=== PATIENT | female | born 1965 | race Caucasian/White ===

== ENCOUNTER 2016-10-28 22:43 | Inpatient (IN) ==
--- NOTE | 2016-10-28 22:57 | Emergency Department Note ---
Disposition Clinical Impression: Accidental drug ingestion Disposition: Admitted As Inpatient Condition: Fair Time of Disposition: 00:39 General Adult HPI - General Chief complaint: ED Overdose Stated complaint: Overdose Time Seen by Provider: 10/28/16 22:51 Source: patient, other Limitations: no limitations Nursing Notes Reviewed: Yes Vital Signs Reviewed: Yes - History of Present Illness HPI Narrative: Female patient brought in by . She is initially not responsive to our stimuli. She is maintaining her airway and has a pulse. She appears to have seizure-like activity. 2 mg of Ativan was given to her. Patient has been advised that she has taken an unknown amount of unknown medication. They state the home health nurse placed medication and a new container and patient took it. This occurred prior to their arrival in the emergency department. She does have a history of cancer she is being treated for as well as seizures that she does not take medication for. Pain Scale: 0 - Related Data Home Medications Medication Instructions Recorded Confirmed Calcium Carbonate/Vitamin D3 1 tab PO BID 05/31/15 09/11/16 [Calcium 600 + D Tablet] Diltiazem HCl [Diltiazem 12Hr ER] 60 mg PO QAM 05/31/15 09/11/16 Isosorbide MONOnitrate (24 HR) 60 mg PO BID 05/31/15 09/11/16 [Imdur] Nitroglycerin [Nitrostat] 0.4 mg SL PRN PRN 05/31/15 09/11/16 Trazodone HCl [TraZODone] 300 mg PO HS 05/31/15 09/11/16 Venlafaxine XR (24 HR) [Effexor XR] 150 mg PO QAM 05/31/15 09/11/16 Eye Lubricant Combination No.1 1 drop OP TID 12/15/15 09/11/16 [Freshkote] Fluticasone/Salmeterol [Advair 1 each IH BID 12/15/15 09/11/16 500-50 Diskus] Lidocaine Patch [Lidoderm 5% patch] 1 each TP DAILY 12/15/15 09/11/16 Tiotropium [Spiriva] 18 mcg IH DAILY 12/15/15 09/11/16 ClonazePAM [Klonopin] 1 mg PO TID 04/01/16 09/11/16 Ondansetron HCl [Zofran] 4 - 8 mg PO Q6H PRN 05/03/16 09/11/16 Oxygen 2 l NS HS 05/03/16 09/11/16 Cetirizine HCl [Zyrtec] 10 mg PO DAILY 06/28/16 09/11/16 Previous Rx's Medication Instructions Recorded Multivit-Minerals/Folic Acid 200 mcg PO DAILY #30 tab.chew 09/25/15 [Adult Multi Gummies] Dicyclomine [Bentyl] 10 mg PO TID #90 capsule 02/08/16 Polyethylene Glycol 3350 [MiraLAX] 17 gm PO DAILY #30 powd.pack 02/08/16 Prochlorperazine Maleate 10 mg PO Q6HR PRN #60 tablet 04/17/16 [Compazine] Letrozole [Femara] 2.5 mg PO DAILY #30 tablet 05/20/16 Sucralfate [Carafate] 1 gm PO QIDAC #120 tablet 09/23/16 Docusate [Colace] 200 mg PO TID PRN #180 capsule 10/22/16 Allergies Allergy/AdvReac Type Severity Reaction Status Date / Time fluoxetine [From Prozac] Allergy Anaphylaxis Verified 10/28/16 23:13 Sulfa (Sulfonamide Allergy Rash Verified 10/28/16 23:13 Antibiotics) sumatriptan [From Imitrex] Allergy Rash Verified 10/28/16 23:13 Limitations: ROS unobtainable due to patients medical condition Past Medical History - Past Medical History Source: old records reviewed, obtained from family Medical history: Reports: cancer, COPD, coronary artery disease, CVA, GERD, hypertension, kidney stones, seizures, TIA, other Surgical history: Reports: appendectomy, hysterectomy, other Psychiatric history: Reports: anxiety, depression 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 She is maintaining her airway. Her trachea is midline. There is no JVD. Her lung sounds are clear bilaterally. Her heart tones are normal. She has strong radial pulses. Her pupils are equal and reactive to light bilaterally 4 mm. Her mucous membranes are moist. Patient had a bilateral mastectomy. She is obese. She does grimace from pain on palpation of her right upper quadrant and verbalizes that she has a fatty liver. Her bowel sounds are normal. I do not appreciate organomegaly. She does not have swelling in any of her extremities. She has strong pedal pulses. There is no pedal edema. I do not appreciate any rashes or bruising to her body. Her skin is not diaphoretic or warm. - General Limitations: no limitations General appearance: alert Course Course Narrative: Patient appears to have seizure-like activity initially. She is given 2 mg of Ativan. She does respond to painful stimuli. She states that she took too much of her medication. She states this was an accident. She denies any SI or HI this time. She subsequently has any other seizure-like activity event but does stop when told to stop. These appear to be pseudoseizures. We will get basic labs as well as urine tox. We will also do a chest x-ray and an EKG. I will contact poison control. - Reevaluation(s) Reevaluation #1: Patient responsive to painful stimuli still. Due to patient's unknown ingestion and recommendation on by poison control we will admit patient. Time: 00:05 - Consultations Consultation #1: Dr Huang admitted Pt in stable condition. Time: 00:29 Vital Signs Temperature 97.1 F L 10/28/16 22:47 Pulse Rate 71 10/28/16 22:47 Respiratory Rate 10 10/28/16 22:47 Blood Pressure 134/90 10/28/16 22:47 O2 Sat by Pulse Oximetry 97 10/28/16 22:47 Temperature 98.1 F 10/28/16 23:00 Pulse Rate 67 10/29/16 02:30 Respiratory Rate 18 10/29/16 02:30 Blood Pressure 113/78 10/29/16 02:30 O2 Sat by Pulse Oximetry 95 10/29/16 02:30 Oxygen Delivery Oxygen Delivery Room Air Medical Decision Making - Medical Records Medical records reviewed: Yes I reviewed the patient's medical records. - Lab Data Lab results reviewed: Yes I reviewed the patient's lab results. Result diagrams: 10/28/16 23:07 10/28/16 23:07 Lab Results 10/28/16 10/28/16 10/28/16 Range/Units 22:48 22:51 22:52 WBC (4.3-11.1) K/mcL RBC (3.82-4.97) M/mcL Hgb (11.5-15.4) g/dL Hct (35.3-44.9) % MCV (83.0-100.0) fL MCH (28.0-33.3) pg MCHC (31.6-35.5) g/dL RDW (11.5-14.5) % Plt Count (140-400) K/mcL MPV (9.4-12.4) fL Immature Gran % (0-4) % Seg Neutrophils % % Lymphocytes % % Monocytes % % Eosinophils % % Basophils % % Neutrophils # (1.6-8.9) K/mcL Lymphocytes # (0.6-4.6) K/mcL Monocytes # (0.0-1.3) K/mcL Eosinophils # (0.0-0.6) K/mcL Basophils # (0.0-0.2) K/mcL Sodium (136-145) mEq/L Potassium (3.5-4.5) mEq/L Chloride (98-109) mEq/L Carbon Dioxide (19-29) mEq/L BUN (7-20) mg/dL Creatinine (0.57-1.11) mg/dL Est GFR ( Amer) (> 60) Est GFR (Non-Af Amer) (> 60) BUN/Creatinine Ratio (6-26) Glucose (70-99) mg/dL POC Glucose 116 H (58-89) Calculated Osmolality (280-300) Calcium (8.6-10.8) mg/dL Total Bilirubin (0.2-1.2) mg/dL Direct Bilirubin (0.0-0.5) mg/dL Indirect Bilirubin (0.0-1.2) mg/dL AST (5-34) Units/L ALT (0-55) Units/L Alkaline Phosphatase (38-126) Units/L Serum Total Protein (6.0-8.3) g/dL Albumin (3.5-5.0) g/dL Globulin (2.4-3.5) g/dL Albumin/Globulin Ratio (1.1-2.2) Urine Color Yellow (Yellow) Urine Clarity Clear (Clear) Urine pH 7.0 (5.0-8.0) pH Units Ur Specific [place] 1.005 L (1.010-1.025) Urine Protein Negative (Neg-Trace) mg/dL Urine Glucose (UA) Normal (Normal) mg/dL Urine Ketones Negative (Negative) mg/dL Urine Blood Negative (Negative) Urine Nitrite Negative (Negative) Urine Bilirubin Negative (Negative) Urine Urobilinogen Normal (Normal) mg/dL Ur Leukocyte Esterase Negative (Negative) Urine Test Negative (Negative) Salicylates (15-30) mg/dL Urine Opiates Screen (Pebjqg=367) ng/mL Acetaminophen (10-30) mcg/mL Ur Barbiturates Screen (Ichnly=996) ng/mL Ur Phencyclidine Scrn (Cutoff=25) ng/mL Ur Amphetamines Screen (Weutly=5182) ng/mL U Benzodiazepines Scrn (Ckbnjn=349) ng/mL Urine Cocaine Screen (Cutoff= 300) ng/mL U Marijuana (THC) Screen (Cutoff = 50) ng/mL Ethyl Alcohol (0-10) mg/dL 10/28/16 10/28/16 10/28/16 Range/Units 22:52 23:07 23:07 WBC 8.2 (4.3-11.1) K/mcL RBC 4.29 (3.82-4.97) M/mcL Hgb 12.8 (11.5-15.4) g/dL Hct 38.9 (35.3-44.9) % MCV 90.7 (83.0-100.0) fL MCH 29.8 (28.0-33.3) pg MCHC 32.9 (31.6-35.5) g/dL RDW 13.8 (11.5-14.5) % Plt Count 201 (140-400) K/mcL MPV 9.7 (9.4-12.4) fL Immature Gran % 0.2 (0-4) % Seg Neutrophils % 51.1 % Lymphocytes % 41.2 % Monocytes % 5.7 % Eosinophils % 1.3 % Basophils % 0.5 % Neutrophils # 4.2 (1.6-8.9) K/mcL Lymphocytes # 3.4 (0.6-4.6) K/mcL Monocytes # 0.5 (0.0-1.3) K/mcL Eosinophils # 0.1 (0.0-0.6) K/mcL Basophils # 0.0 (0.0-0.2) K/mcL Sodium 139 (136-145) mEq/L Potassium 3.4 L (3.5-4.5) mEq/L Chloride 106 (98-109) mEq/L Carbon Dioxide 24 (19-29) mEq/L BUN 13 (7-20) mg/dL Creatinine 0.77 (0.57-1.11) mg/dL Est GFR ( Amer) > 60 (> 60) Est GFR (Non-Af Amer) > 60 (> 60) BUN/Creatinine Ratio 17 (6-26) Glucose 116 H (70-99) mg/dL POC Glucose (58-89) Calculated Osmolality 289 (280-300) Calcium 8.6 (8.6-10.8) mg/dL Total Bilirubin 0.3 (0.2-1.2) mg/dL Direct Bilirubin < 0.1 (0.0-0.5) mg/dL Indirect Bilirubin 0.2 (0.0-1.2) mg/dL AST 13 (5-34) Units/L ALT 20 (0-55) Units/L Alkaline Phosphatase 83 (38-126) Units/L Serum Total Protein 6.2 (6.0-8.3) g/dL Albumin 3.5 (3.5-5.0) g/dL Globulin 2.7 (2.4-3.5) g/dL Albumin/Globulin Ratio 1.3 (1.1-2.2) Urine Color (Yellow) Urine Clarity (Clear) Urine pH (5.0-8.0) pH Units Ur Specific [place] (1.010-1.025) Urine Protein (Neg-Trace) mg/dL Urine Glucose (UA) (Normal) mg/dL Urine Ketones (Negative) mg/dL Urine Blood (Negative) Urine Nitrite (Negative) Urine Bilirubin (Negative) Urine Urobilinogen (Normal) mg/dL Ur Leukocyte Esterase (Negative) Urine Test (Negative) Salicylates < 5.0 L (15-30) mg/dL Urine Opiates Screen Negative (Jyzjfi=774) ng/mL Acetaminophen 5.0 L (10-30) mcg/mL Ur Barbiturates Screen Negative (Ssgwqm=275) ng/mL Ur Phencyclidine Scrn Negative (Cutoff=25) ng/mL Ur Amphetamines Screen Negative (Ysadut=9360) ng/mL U Benzodiazepines Scrn Negative (Urnmyc=173) ng/mL Urine Cocaine Screen Negative (Cutoff= 300) ng/mL U Marijuana (THC) Screen Negative (Cutoff = 50) ng/mL Ethyl Alcohol < 10 (0-10) mg/dL - Radiology Data Radiology results reviewed: Yes I reviewed the patient's radiology results. No cardiopulmonary process. - EKG Data EKG #1 EKG attestation: Yes I reviewed and interpreted this EKG. EKG results narrative: Normal sinus rhythm at a rate of 74. SD interval is 163. QRS duration is 109. QTC is 437 QTC is 464. No signs of acute ischemia. Minor elongated QT. No significant changes from prior EKG dated 05/03/2016. Attestation Statement - Attestation Attestation: For this encounter, I have reviewed the resident, PSYCHOLOGY TECHNICIAN, or PA documentation, treatment plan, and medical decision making; and I have had face to face time with this patient. History source: Patient is unable to provide information for this note. Info was gathered from the patient, hospital staff, the patient's chart. History limitations: Patient condition Medications: As per nurses note 51-year-old female presents after accidental medication overdose. states the patient tried to take her nighttime medications but grabbed the wrong couple of medications. states the home health nurse took a mixture of her medications and placed them in a cup and they were not disposed of properly. Patient is unsure of the medications that were in the cup. drove the patient to the emergency department. He states she was ambulating to the car and out of it. Upon arrival to the emergency department patient is somnolent and reacts only to sternal rub. As the patient was transferred from the wheelchair to the bed she had what seemed to be a seizure with convulsions of her entire body. Upon further evaluation, the patient was not postictal after the event, she was not incontinent, she did not bite her tongue, she grabbed my hand pushing away after sternal rub. She has a history of nonepileptic seizures and is not taking antiepileptic medications. After continued observation the patient gradually became more awake and denied suicidal ideation. agrees with the story and states that taking the medications was an accident. ECG shows normal sinus rhythm with rate of 74, QRS of 109, QTC of 464. Patient vital signs are stable. She had multiple nonepileptic seizures during her stay in the emergency department but similar to the initial, there is no postictal period or other signs or symptoms that this was an epileptic seizure. Poison Control Center was contacted regarding the patient's symptoms and case. We went through the most recent medication list with them and they recommended admission to the hospital for continued evaluation. Patient has sleeping in the emergency Department however she awakes to voice and is able to hold conversation regarding what happened.
[2016-10-28 23:12] LABS: Basophils % 0.5 %; Eosinophils # 0.1 K/mcL (0.0-0.6); Eosinophils % 1.3 %; Hematocrit 38.9 % (35.3-44.9); Hemoglobin 12.8 g/dL (11.5-15.4); Immature Granulocytes % 0.2 % (0-4); Lymphocytes # 3.4 K/mcL (0.6-4.6); Lymphocytes % 41.2 %; Mean Corpuscular HGB Conc 32.9 g/dL (31.6-35.5); Mean Corpuscular Hemoglobin 29.8 pg (28.0-33.3); Mean Corpuscular Volume 90.7 fL (83.0-100.0); Mean Platelet Volume 9.7 fL (9.4-12.4); Monocytes # 0.5 K/mcL (0.0-1.3); Monocytes % 5.7 %; Neutrophils # 4.2 K/mcL (1.6-8.9); Platelet Count 201 K/mcL (140-400); Red Blood Count 4.29 M/mcL (3.82-4.97); Red Cell Distribution Width 13.8 % (11.5-14.5); Segmented Neutrophils % 51.1 %
[2016-10-28 23:25] LABS: Alanine Aminotransferase 20 Units/L (0-55); Albumin 3.5 g/dL (3.5-5.0); Albumin/Globulin Ratio 1.3 (1.1-2.2); Alkaline Phosphatase 83 Units/L (38-126); Aspartate Amino Transferase 13 Units/L (5-34); BUN/Creatinine Ratio 17 (6-26); Bilirubin,Indirect 0.2 mg/dL (0.0-1.2); Bilirubin,Total 0.3 mg/dL (0.2-1.2); Blood Urea Nitrogen 13 mg/dL (7-20); Calcium 8.6 mg/dL (8.6-10.8); Carbon Dioxide 24 mEq/L (19-29); Chloride 106 mEq/L (98-109); Globulin 2.7 g/dL (2.4-3.5); Glucose 116 mg/dL (70-99); Osmolality,Calculated 289 (280-300); Potassium 3.4 mEq/L (3.5-4.5); Sodium 139 mEq/L (136-145); Total Protein 6.2 g/dL (6.0-8.3); eGFR For African Americans > 60 (> 60); eGFR For Non-African Americans > 60 (> 60)
[2016-10-28 23:26] LABS: Bilirubin,Direct < 0.1 mg/dL (0.0-0.5)
[2016-10-28 23:30] LABS: Bilirubin,Urine Negative (Negative); Blood,Urine Negative (Negative); Clarity,Urine Clear (Clear); Color,Urine Yellow (Yellow); Glucose,Urine (UA) Normal (Normal); Ketones,Urine Negative (Negative); Leukocyte Esterase,Urine Negative (Negative); Nitrite,Urine Negative (Negative); Protein,Urine Negative (Neg-Trace); Specific Gravity,Urine 1.005 (1.010-1.025); Urobilinogen,Urine Normal (Normal)
[2016-10-28 23:34] LABS: Amphetamine Screen,Urine Negative ng/mL (Cutoff=1000); Barbiturate Screen,Urine Negative ng/mL (Cutoff=200); Benzodiazepines Screen,Urine Negative ng/mL (Cutoff=200); Cannabinoid Screen,Urine Negative ng/mL (Cutoff = 50); Cocaine Screen,Urine Negative ng/mL (Cutoff= 300); Opiate Screen,Urine Negative ng/mL (Cutoff=300); Phencyclidine Screen,Urine Negative ng/mL (Cutoff=25)
[2016-10-29 00:04] LABS: Ethanol < 10 mg/dL (0-10); Salicylate < 5.0 mg/dL (15-30)
[2016-10-29] MEDS ORDERED: Naloxone 0.4 MG/ML INJ IVP PRN (00:35)
--- NOTE | 2016-10-29 03:56 | Internal Med History&Physical ---
Date of Encounter: 10/29/16 Time of Encounter: 01:15 Internal Medicine - H&P: HPI Chief complaint: altered mental status, drug overdose Admitted From: Emergency Dept Plans for Post Hospital Care: Home History of present illness: Ms. Su is a 51 year with medical history significant for cancer, COPD, coronary artery disease, CVA, GERD, hypertension, kidney stones, seizures, TIA, was brought in by because the patient had become unresponsive. He reports she was at her baseline level of health until 30 minutes after evening doses of medication. The think the drug in question was Trazodne, but he not sure. He reports that a new home health attendant apparently mixed up her medication causing this accidental overdose. No history of suicide ideation or intent. Her who was at bedside ([phone]) informs me he is her NOK/POA, as well as declare her FULL CODE status. Source: old records reviewed, obtained from family Medical history: Reports: cancer, COPD, coronary artery disease, CVA, GERD, hypertension, kidney stones, seizures, TIA, other Surgical history: Reports: appendectomy, hysterectomy, other Psychiatric history: Reports: anxiety, depression COPYRIGHT EXPERT history: Reports: no COPYRIGHT EXPERT history Smoking Status: Current every day smoker, 1ppd smoker Smokeless Tobacco Status: No Alcohol use: Reports: occasionally Drug use: Reports: prescription drug abuse Family: Not obtained as patient is unconscious, in a deep sleep. A 10-point ROS was performed, the reports that she was okay, asymptomatic until the event this evening. ROS is limited as the patient is not verbal, much was obtained . Vital Signs Temperature 97.1 F L 10/28/16 22:47 Pulse Rate 71 10/28/16 22:47 Respiratory Rate 10 10/28/16 22:47 Blood Pressure 134/90 10/28/16 22:47 O2 Sat by Pulse Oximetry 97 10/28/16 22:47 Temperature 98.1 F 10/28/16 23:00 Pulse Rate 67 10/29/16 02:30 Respiratory Rate 18 10/29/16 02:30 Blood Pressure 113/78 10/29/16 02:30 O2 Sat by Pulse Oximetry 95 10/29/16 02:30 O/E: Not in distress, morbidily obese, breathing easy, unarousable Fullness of neck NOT PALE, anicteric, afebrile to touch, acyanotic HEENT: No cervical or jugular lymphadenopathy. She is able to maintain her air way. Chest: CTAB Heart: RRR, HS1/2. Abdomen: non-distended, soft, no masses : Unable to assess. Larson draining clear urine GRAPE PICKER: Unarousable, pupils dilated, sluggish, some grimacing with sternal pressure. SKIN: No active skin lesions. Extemities: No pedal edema. 10/28/16 23:07 Lab Results 10/28/16 10/28/16 10/28/16 Range/Units 22:48 22:51 22:52 WBC (4.3-11.1) K/mcL RBC (3.82-4.97) M/mcL Hgb (11.5-15.4) g/dL Hct (35.3-44.9) % MCV (83.0-100.0) fL MCH (28.0-33.3) pg MCHC (31.6-35.5) g/dL RDW (11.5-14.5) % Plt Count (140-400) K/mcL MPV (9.4-12.4) fL Immature Gran % (0-4) % Seg Neutrophils % % Lymphocytes % % Monocytes % % Eosinophils % % Basophils % % Neutrophils # (1.6-8.9) K/mcL Lymphocytes # (0.6-4.6) K/mcL Monocytes # (0.0-1.3) K/mcL Eosinophils # (0.0-0.6) K/mcL Basophils # (0.0-0.2) K/mcL Sodium (136-145) mEq/L Potassium (3.5-4.5) mEq/L Chloride (98-109) mEq/L Carbon Dioxide (19-29) mEq/L BUN (7-20) mg/dL Creatinine (0.57-1.11) mg/dL Est GFR ( Amer) (> 60) Est GFR (Non-Af Amer) (> 60) BUN/Creatinine Ratio (6-26) Glucose (70-99) mg/dL POC Glucose 116 H (58-89) Calculated Osmolality (280-300) Calcium (8.6-10.8) mg/dL Total Bilirubin (0.2-1.2) mg/dL Direct Bilirubin (0.0-0.5) mg/dL Indirect Bilirubin (0.0-1.2) mg/dL AST (5-34) Units/L ALT (0-55) Units/L Alkaline Phosphatase (38-126) Units/L Serum Total Protein (6.0-8.3) g/dL Albumin (3.5-5.0) g/dL Globulin (2.4-3.5) g/dL Albumin/Globulin Ratio (1.1-2.2) Urine Color Yellow (Yellow) Urine Clarity Clear (Clear) Urine pH 7.0 (5.0-8.0) pH Units Ur Specific [place] 1.005 L (1.010-1.025) Urine Protein Negative (Neg-Trace) mg/dL Urine Glucose (UA) Normal (Normal) mg/dL Urine Ketones Negative (Negative) mg/dL Urine Blood Negative (Negative) Urine Nitrite Negative (Negative) Urine Bilirubin Negative (Negative) Urine Urobilinogen Normal (Normal) mg/dL Ur Leukocyte Esterase Negative (Negative) Urine Test Negative (Negative) Salicylates (15-30) mg/dL Urine Opiates Screen (Qnfpfj=915) ng/mL Acetaminophen (10-30) mcg/mL Ur Barbiturates Screen (Gcqlrs=208) ng/mL Ur Phencyclidine Scrn (Cutoff=25) ng/mL Ur Amphetamines Screen (Ncbesx=0961) ng/mL U Benzodiazepines Scrn (Nbvtnx=763) ng/mL Urine Cocaine Screen (Cutoff= 300) ng/mL U Marijuana (THC) Screen (Cutoff = 50) ng/mL Ethyl Alcohol (0-10) mg/dL 10/28/16 10/28/16 10/28/16 Range/Units 22:52 23:07 23:07 WBC 8.2 (4.3-11.1) K/mcL RBC 4.29 (3.82-4.97) M/mcL Hgb 12.8 (11.5-15.4) g/dL Hct 38.9 (35.3-44.9) % MCV 90.7 (83.0-100.0) fL MCH 29.8 (28.0-33.3) pg MCHC 32.9 (31.6-35.5) g/dL RDW 13.8 (11.5-14.5) % Plt Count 201 (140-400) K/mcL MPV 9.7 (9.4-12.4) fL Immature Gran % 0.2 (0-4) % Seg Neutrophils % 51.1 % Lymphocytes % 41.2 % Monocytes % 5.7 % Eosinophils % 1.3 % Basophils % 0.5 % Neutrophils # 4.2 (1.6-8.9) K/mcL Lymphocytes # 3.4 (0.6-4.6) K/mcL Monocytes # 0.5 (0.0-1.3) K/mcL Eosinophils # 0.1 (0.0-0.6) K/mcL Basophils # 0.0 (0.0-0.2) K/mcL Sodium 139 (136-145) mEq/L Potassium 3.4 L (3.5-4.5) mEq/L Chloride 106 (98-109) mEq/L Carbon Dioxide 24 (19-29) mEq/L BUN 13 (7-20) mg/dL Creatinine 0.77 (0.57-1.11) mg/dL Est GFR ( Amer) > 60 (> 60) Est GFR (Non-Af Amer) > 60 (> 60) BUN/Creatinine Ratio 17 (6-26) Glucose 116 H (70-99) mg/dL POC Glucose (58-89) Calculated Osmolality 289 (280-300) Calcium 8.6 (8.6-10.8) mg/dL Total Bilirubin 0.3 (0.2-1.2) mg/dL Direct Bilirubin < 0.1 (0.0-0.5) mg/dL Indirect Bilirubin 0.2 (0.0-1.2) mg/dL AST 13 (5-34) Units/L ALT 20 (0-55) Units/L Alkaline Phosphatase 83 (38-126) Units/L Serum Total Protein 6.2 (6.0-8.3) g/dL Albumin 3.5 (3.5-5.0) g/dL Globulin 2.7 (2.4-3.5) g/dL Albumin/Globulin Ratio 1.3 (1.1-2.2) Urine Color (Yellow) Urine Clarity (Clear) Urine pH (5.0-8.0) pH Units Ur Specific [place] (1.010-1.025) Urine Protein (Neg-Trace) mg/dL Urine Glucose (UA) (Normal) mg/dL Urine Ketones (Negative) mg/dL Urine Blood (Negative) Urine Nitrite (Negative) Urine Bilirubin (Negative) Urine Urobilinogen (Normal) mg/dL Ur Leukocyte Esterase (Negative) Urine Test (Negative) Salicylates < 5.0 L (15-30) mg/dL Urine Opiates Screen Negative (Dnfaco=125) ng/mL Acetaminophen 5.0 L (10-30) mcg/mL Ur Barbiturates Screen Negative (Legkcw=547) ng/mL Ur Phencyclidine Scrn Negative (Cutoff=25) ng/mL Ur Amphetamines Screen Negative (Gtrjmy=0616) ng/mL U Benzodiazepines Scrn Negative (Zzagxb=010) ng/mL Urine Cocaine Screen Negative (Cutoff= 300) ng/mL U Marijuana (THC) Screen Negative (Cutoff = 50) ng/mL Ethyl Alcohol < 10 (0-10) mg/dL EKG: NSR@74, normal axis, normal interval, no evidence of ischemia IMP ?ACCIDENTAL OVERDOSE, UNKNOWN MEDICATION, says it may have been Trazodone. However, accounts was incredible, it appeared he was hiding something. bEACUSE PUPILS WAS DILATED AND SLUGISH, synthetic sympathomimetics, not detectable by usual drug testing kits. Chronic diagnoses COPD, coronary artery disease, CVA, GERD, hypertension, kidney stones, seizures , TIA, PLAN Admit Supplemental oxygen Supportive care Serial neuro exam I have my doubts of the account provided by her huband Hold medcation of chronic medical morbidities. Obtain head CT. Past Med Surg Social Fam HX - Past Medical History Medical history: cancer, COPD, coronary artery disease, CVA, GERD, hypertension , kidney stones, seizures, TIA, other Psychiatric history: anxiety, depression - Past Surgical History Surgical History: appendectomy, hysterectomy, other - Social History Smoking Status: Current every day smoker Smokeless Tobacco Status: No Alcohol use: occasionally Drug use: prescription drug abuse - Family History Mother Living Status: Still Living Hx Family Cancer: Yes Father Living Status: Hx Family Cardiac Disorders: Yes Internal Medicine - H&P: Meds Calcium Carbonate/Vitamin D3 [Calcium 600 + D Tablet] 1 tab PO BID 05/31/15 [ History] Diltiazem HCl [Diltiazem 12Hr ER] 60 mg PO QAM 05/31/15 [History] Isosorbide MONOnitrate (24 HR) [Imdur] 60 mg PO BID 05/31/15 [History] Nitroglycerin [Nitrostat] 0.4 mg SL PRN PRN 05/31/15 [History] Trazodone HCl [TraZODone] 300 mg PO HS 05/31/15 [History] Venlafaxine XR (24 HR) [Effexor XR] 150 mg PO QAM 05/31/15 [History] Multivit-Minerals/Folic Acid [Adult Multi Gummies] 200 mcg PO DAILY #30 tab.chew 09/25/15 [Rx] Eye Lubricant Combination No.1 [Freshkote] 1 drop OP TID 12/15/15 [History] Fluticasone/Salmeterol [Advair 500-50 Diskus] 1 each IH BID 12/15/15 [History] Lidocaine Patch [Lidoderm 5% patch] 1 each TP DAILY 12/15/15 [History] Tiotropium [Spiriva] 18 mcg IH DAILY 12/15/15 [History] Dicyclomine [Bentyl] 10 mg PO TID #90 capsule 02/08/16 [Rx] Polyethylene Glycol 3350 [MiraLAX] 17 gm PO DAILY #30 powd.pack 02/08/16 [Rx] ClonazePAM [Klonopin] 1 mg PO TID 04/01/16 [History] Prochlorperazine Maleate [Compazine] 10 mg PO Q6HR PRN #60 tablet 04/17/16 [Rx] Ondansetron HCl [Zofran] 4 - 8 mg PO Q6H PRN 05/03/16 [History] Oxygen 2 l NS HS 05/03/16 [History] Letrozole [Femara] 2.5 mg PO DAILY #30 tablet 05/20/16 [Rx] Cetirizine HCl [Zyrtec] 10 mg PO DAILY 06/28/16 [History] Sucralfate [Carafate] 1 gm PO QIDAC #120 tablet 09/23/16 [Rx] Docusate [Colace] 200 mg PO TID PRN #180 capsule 10/22/16 [Rx] Allergies fluoxetine [From Prozac] Allergy (Verified 10/28/16 23:13) Anaphylaxis Sulfa (Sulfonamide Antibiotics) Allergy (Verified 10/28/16 23:13) Rash sumatriptan [From Imitrex] Allergy (Verified 10/28/16 23:13) Rash All Systems PM: A 10-system review of systems was performed and is negative for pertinent findings except as documented above in the HPI. - Constitutional Vitals: Temp Pulse Resp BP Pulse Ox 98.1 F 67 18 124/96 95 10/28/16 23:00 10/29/16 03:30 10/29/16 03:30 10/29/16 03:30 10/29/16 03:30 Internal Med - H&P Results - Labs CBC & Chem 7: 10/28/16 23:07 10/28/16 23:07
[2016-10-29] MEDS: 0.9 % Sodium Chloride w KCl 20 MEQ/1,000 ML MLS IVC SCH ×3 (05:29→18:41)
--- NOTE | 2016-10-29 09:06 | Internal Med Progress Note ---
<Joshua Birch - Last Filed: 10/29/16 17:06> Date of Encounter: 10/29/16 Time of Encounter: 09:35 - Assessment and plan (1) Accidental overdose Current Visit: Yes Status: Acute Assessment and plan: Patient with new home health nurse apparently she distributed her medication to her improperly immediately after taking the medication patient realize she had possibly taken too much. She told her and in 30 minutes later she became lethargic. She then was up tended when she got to the ER. She has since awakened but remains very sleepy. poison control was contacted and stated no intervention at this time toxicology screen was negative. No metabolic derangement noted Conservative measures IV fluids monitor clinical status Qualifiers: Encounter type: initial encounter Qualified Code(s): T50.901A - Poisoning by unspecified drugs, medicaments and biological substances, accidental ( unintentional), initial encounter (2) Pseudoseizures Current Visit: Yes Status: Acute Assessment and plan: Patient with a long-standing history of possible seizures. Unclear etiology. No antiseizure medication currently. EEG ordered. Results pending. Depending on results of EEG may need neurology consult (3) HTN (hypertension) Current Visit: Yes Status: Chronic Assessment and plan: stable continue home meds Qualifiers: Hypertension type: essential hypertension Qualified Code(s): I10 - Essential (primary) hypertension (4) COPD (chronic obstructive pulmonary disease) Current Visit: No Status: Chronic Assessment and plan: stable continue home meds Qualifiers: COPD type: unspecified COPD Qualified Code(s): J44.9 - Chronic obstructive pulmonary disease, unspecified (5) DVT prophylaxis Current Visit: Yes Status: Acute Assessment and plan: pharmacologic anticoagulation with heparin SCD's - Subjective Interval history: Patient seen and examined. Pt. currently unresponsive. Vitals are stable. Spoke with on the phone. He states they had a home health care worker come yesterday to give pt. her medications. Apparently he believes she accidentally took too many of her medications. He usually helps her with her meds but did not last night. At 10pm last night she took the medications. About 30 minutes later she became lethargic and anxious. They came to the ED and upon arrival she became unresponsive. He believes she was given too much trazadone. While in the ED she had a suspected witnessed seizure and was give 2mg ativan. She remains difficult to arouse but will open her eyes to painful simulus. Upon re-examination patient is awake and alert. She confirms the story related by her as she had possibly taken too much medication by accident. - Constitutional Vitals: Temp Pulse Resp BP Pulse Ox 98.0 F 63 16 138/125 97 10/29/16 06:53 10/29/16 06:53 10/29/16 06:53 10/29/16 06:53 10/29/16 06:53 General appearance: Present: A&O X 0 (initially unresponsive, now awake and alert x 3) - Head Head exam: Present: atraumatic, normocephalic - Eye Eye exam: Present: PERRL Pupils: Present: PERRL - Neck Neck exam general surgery: Present: supple, trachea midline. Absent: lymphadenopathy - Respiratory Respiratory exam: Present: decreased breath sounds, CTAB. Absent: accessory muscle use, rales, respiratory distress, rhonchi, wheezes - Cardiovascular Cardiovascular exam: Present: RRR, +S1, +S2. Absent: diastolic murmur, gallop, rubs, systolic murmur - GI/Abdominal GI/Abdominal exam: Present: distended, normal bowel sounds, soft - Extremities Exam Extremities exam: Present: warm, radial pulses palpable and symetrical. Absent : calf tenderness, cyanotic, pedal edema - Neurological Exam Neurological exam: Absent: alert, oriented X3 - Skin Skin exam: Present: dry, intact Internal Medicine: Result - Labs CBC & Chem 7: 10/28/16 23:07 10/28/16 23:07 - Impressions Impressions Head CT 10/29/16 06:50 IMPRESSION: No acute intracranial abnormality. D/ / Caleb Foster MD / Caleb Foster MD Interpreting Provider: Caleb Foster MD Consult Discharge Plan - Plan Referrals: Zach Disla MD [Primary Care Provider] - <Aakash Garces P - Last Filed: 10/29/16 19:06> Date of Encounter: 10/29/16 - Constitutional Vitals: Temp Pulse Resp BP Pulse Ox 98.4 F 68 18 147/88 96 10/29/16 16:13 10/29/16 18:00 10/29/16 18:00 10/29/16 18:00 10/29/16 18:00 Internal Medicine: Result - Labs CBC & Chem 7: 10/28/16 23:07 10/28/16 23:07 Labs: Cardiac Enzymes 10/29/16 Range/Units 09:55 Troponin I 0.00 (0-0.03) ng/mL - Impressions Impressions Head CT 10/29/16 06:50 IMPRESSION: No acute intracranial abnormality. D/ / Caleb Foster MD / Caleb Foster MD Interpreting Provider: Caleb Foster MD - Attending Attestation I examined this patient and my medical decision-making was reviewed with the DUPLICATOR PUNCH OPERATOR/PA/Advanced Practice Nurse/Resident Physician. I agree with the documented findings, disposition and treatment plan as described except to the extent set forth below. neurology opinion tomorrow this is event note not a billable note
[2016-10-29] MEDS ORDERED: *HR* LORazepam 2 MG/ML VIAL ONE (10:00)
[2016-10-29] MEDS ORDERED: *HR* LORazepam 2 MG/ML VIAL IVP PRN (14:27)
--- NOTE | 2016-10-29 14:33 | Electrocardiograph Report ---
[facility] Test Date: 2016-10-28 Pat Name: Mihaela Su Department: 103 Room: 2NE29 Gender: F [facility] Teacher: BALDOMERO : 1965 Requested By: Allison Laird Order Number: [id number] Reading MD: Mike Lopez Measurements Intervals [place] Rate: 74 P: 42 ME: 163 QRS: 9 QRSD: 109 T: 37 QT: 437 QTc: 464 Interpretive Statements SINUS RHYTHM Electronically Signed On 10-29-16 14:31:57 EST by Mike Lopez
[2016-10-29] MEDS ORDERED: Albuterol 2.5 MG/3 ML NEBULIZER IH PRN (16:56)
[2016-10-29] MEDS ORDERED: Nitroglycerin 0.4 MG TAB.SUBL SL PRN (16:56)
[2016-10-29] MEDS ORDERED: *HR* HYDROcodone/Acet 7.5/325 mg TABLET PO ONE (17:14)
[2016-10-29] MEDS: *HR* Heparin 5,000 UNIT/ML VIAL SQ SCH (18:33)
[2016-10-29] MEDS: Budesonide/Formoterol 160/4.5 MDI IH SCH (19:48)
[2016-10-29] MEDS ORDERED: Sennosides 8.6 MG TABLET PO SCH (21:00)
[2016-10-29] MEDS: Isosorbide MONOnitrate (24 HR) 60 MG TAB.ER.24H PO SCH (21:02)
[2016-10-29] MEDS: Ondansetron ODT 4 MG TAB.RAPDIS PO PRN (21:03)
[2016-10-29] MEDS: (Lubiprostone [Amitiza] 8 MCG) PO SCH (21:04)
[2016-10-29] MEDS ORDERED: Acetaminophen 325 MG TABLET PO PRN (21:42)
[2016-10-29] MEDS ORDERED: Ibuprofen 400 MG TABLET PO PRN (21:44)
[2016-10-29] MEDS ORDERED: Gabapentin 400 MG CAPSULE PO SCH (21:45)
[2016-10-30 05:50] LABS: Basophils % 0.6 %; Eosinophils # 0.1 K/mcL (0.0-0.6); Eosinophils % 1.5 %; Hematocrit 39.8 % (35.3-44.9); Immature Granulocytes % 0.4 % (0-4); Lymphocytes # 2.4 K/mcL (0.6-4.6); Lymphocytes % 46.1 %; Mean Corpuscular HGB Conc 32.7 g/dL (31.6-35.5); Mean Corpuscular Hemoglobin 30.2 pg (28.0-33.3); Mean Corpuscular Volume 92.3 fL (83.0-100.0); Mean Platelet Volume 9.9 fL (9.4-12.4); Monocytes # 0.3 K/mcL (0.0-1.3); Monocytes % 6.6 %; Neutrophils # 2.3 K/mcL (1.6-8.9); Platelet Count 188 K/mcL (140-400); Red Blood Count 4.31 M/mcL (3.82-4.97); Red Cell Distribution Width 13.8 % (11.5-14.5); Segmented Neutrophils % 44.8 %
[2016-10-30 05:56] LABS: BUN/Creatinine Ratio 18 (6-26); Blood Urea Nitrogen 12 mg/dL (7-20); Calcium 8.6 mg/dL (8.6-10.8); Carbon Dioxide 18 mEq/L (19-29); Chloride 113 mEq/L (98-109); Glucose 78 mg/dL (70-99); Osmolality,Calculated 287 (280-300); Potassium 4.2 mEq/L (3.5-4.5); Sodium 139 mEq/L (136-145); eGFR For African Americans > 60 (> 60); eGFR For Non-African Americans > 60 (> 60)
[2016-10-30] MEDS: *HR* Heparin 5,000 UNIT/ML VIAL SQ SCH (06:05)
[2016-10-30] MEDS: Budesonide/Formoterol 160/4.5 MDI IH SCH (08:16)
--- NOTE | 2016-10-30 08:32 | EEG/EMG/Oth Biometrics Report ---
EEG Procedure Report Date of procedure: 10/30/16 EEG Procedure: Routine EEG Procedure Note: This is a report of a 21 channel bipolar and referential montage EEG. No posterior dominant waking rhythms identified at any time during the study. The study begins with the subject in stage II sleep was referenced by the presence of vertex activity K complexes and sleep spindles. Subject remains in stage II sleep for the duration of the study. Hyperventilation is not performed in recording. Photic stimulation is performed and does not produce a driving response. Toward the conclusion of the study generalized burst of myogenic artifact was identified. There is no pattern of evolution to suggest seizure activity. There is no postictal slowing after the myogenic activity. EKG rhythm strip reveals normal sinus rhythm at 72 beats per minute. Impressions: This EEG recording is within normal limits. It is primarily reflective of stage II sleep. There is no evidence of epileptiform activity identified during this study. Comment: A normal EEG does not preclude diagnosis of seizure or epilepsy. Clinical suspicion for seizure activity is high, serial EEGs or perhaps a prolonged recording may prove beneficial. Please correlate clinically. The documentation in the history of HPI and plan were at least partially created by [employer] recognition technology by Dr. Barnes. Errors in grammar, wording or other phrases may exist. If errors are found after the documentation signed, they will be addressed individually in the addendum section of this document when appropriate.
[2016-10-30] MEDS ORDERED: Diltiazem SR (12hr) 60 MG CAPSULE PO SCH (09:00)
[2016-10-30] MEDS ORDERED: Nicotine 21 MG PATCH.TD24 TD SCH (09:00)
[2016-10-30] MEDS ORDERED: Loratadine 10 MG TABLET PO SCH (09:00)
[2016-10-30] MEDS ORDERED: Letrozole 2.5 MG TABLET PO SCH (09:00)
[2016-10-30] MEDS ORDERED: clonazePAM 1 MG TABLET PO SCH (09:00)
[2016-10-30] MEDS ORDERED: Tiotropium 18 MCG inhalation IH SCH (09:00)
[2016-10-30] MEDS: 0.9 % Sodium Chloride w KCl 20 MEQ/1,000 ML MLS IVC SCH ×2 (09:36→09:52)
[2016-10-30] MEDS: Isosorbide MONOnitrate (24 HR) 60 MG TAB.ER.24H PO SCH (09:37)
[2016-10-30] MEDS: (Lubiprostone [Amitiza] 8 MCG) PO SCH (09:38)
--- NOTE | 2016-10-30 10:56 | Discharge Summary ---
<Joshua Birch - Last Filed: 10/30/16 13:53> Date of Encounter: 10/30/16 Time of Encounter: 10:56 - Discharge Diagnosis (1) Accidental overdose Priority: Primary Status: Resolved Qualifiers: Encounter type: initial encounter Qualified Code(s): T50.901A - Poisoning by unspecified drugs, medicaments and biological substances, accidental ( unintentional), initial encounter (2) Pseudoseizures Priority: Secondary Status: Chronic (3) HTN (hypertension) Priority: Secondary Status: Chronic Qualifiers: Hypertension type: essential hypertension Qualified Code(s): I10 - Essential (primary) hypertension (4) COPD (chronic obstructive pulmonary disease) Priority: Secondary Status: Chronic Qualifiers: COPD type: unspecified COPD Qualified Code(s): J44.9 - Chronic obstructive pulmonary disease, unspecified (5) DVT prophylaxis Priority: Primary Status: Acute - Discharge Medications Home Medications: Calcium Carbonate/Vitamin D3 [Calcium 600 + D Tablet] 1 tab PO BID 05/31/15 [ History] Diltiazem HCl [Diltiazem 12Hr ER] 60 mg PO QAM 05/31/15 [History] Isosorbide MONOnitrate (24 HR) [Imdur] 60 mg PO BID 05/31/15 [History] Nitroglycerin [Nitrostat] 0.4 mg SL PRN PRN 05/31/15 [History] Trazodone HCl [TraZODone] 300 mg PO HS 05/31/15 [History] Venlafaxine XR (24 HR) [Effexor XR] 150 mg PO QAM 05/31/15 [History] Multivit-Minerals/Folic Acid [Adult Multi Gummies] 200 mcg PO DAILY #30 tab.chew 09/25/15 [Rx] Fluticasone/Salmeterol [Advair 500-50 Diskus] 1 each IH BID 12/15/15 [History] Lidocaine Patch [Lidoderm 5% patch] 1 each TP DAILY 12/15/15 [History] Tiotropium [Spiriva] 18 mcg IH DAILY 12/15/15 [History] Dicyclomine [Bentyl] 10 mg PO TID #90 capsule 02/08/16 [Rx] Polyethylene Glycol 3350 [MiraLAX] 17 gm PO DAILY #30 powd.pack 04/14/16 [Rx] ClonazePAM [Klonopin] 1 mg PO TID 04/01/16 [History] Prochlorperazine Maleate [Compazine] 10 mg PO Q6HR PRN #60 tablet 04/17/16 [Rx] Ondansetron HCl [Zofran] 4 - 8 mg PO Q6H PRN 05/03/16 [History] Oxygen 2 l NS HS 05/03/16 [History] Letrozole [Femara] 2.5 mg PO DAILY #30 tablet 05/20/16 [Rx] Cetirizine HCl [Zyrtec] 10 mg PO DAILY 06/28/16 [History] Sucralfate [Carafate] 1 gm PO QIDAC #120 tablet 09/23/16 [Rx] Docusate [Colace] 200 mg PO TID PRN #180 capsule 10/22/16 [Rx] Albuterol Neb [Proventil Neb] 2.5 mg IH QID PRN 10/29/16 [History] Benzoyl Peroxide 1 appl TP 3XW 10/29/16 [History] Diclofenac Sodium [Voltaren] 1 appl TP TID PRN 10/29/16 [History] Ergocalciferol (VITAMIN D2) [Vitamin D2] 50,000 unit PO QWEEK 10/29/16 [History] Fluocinolone Acetonide [Synalar] 1 appl TP DAILY 10/29/16 [History] Fluticasone Propionate Nasal [Flonase] 1 spray NS DAILY PRN 10/29/16 [History] Furosemide [Lasix] 20 - 40 mg PO DAILY PRN 10/29/16 [History] Gabapentin [Neurontin] 400 mg PO QAM 10/29/16 [History] Gabapentin [Neurontin] 800 mg PO HS 10/29/16 [History] GuaiFENesin/Dextromethorphan [Mucinex Dm] 1 tab PO BID PRN 10/29/16 [History] Hydrocortisone 2.5% CREAM [Cortaid] 1 applic TP BID PRN 10/29/16 [History] Levalbuterol Tartrate [Xopenex Hfa] 4 puff IH Q6H PRN 10/29/16 [History] Lidocaine 4% CRM (LMX) [Lmx 4] 1 appl TP BID PRN 10/29/16 [History] Lubiprostone [Amitiza] 8 mcg PO BID 10/29/16 [History] Magic Mouthwash [Magic Mouthwash BLM] 5 - 10 ml PO Q4H PRN 10/29/16 [History] Mupirocin [Bactroban Oint] 1 appl TP TID 10/29/16 [History] Nabumetone [Relafen] 500 mg PO BID 10/29/16 [History] Nicotine Patch [Nicoderm] 21 mg TD DAILY 10/29/16 [History] Nystatin [Nystatin Suspension] 10 ml PO TID 10/29/16 [History] Pantoprazole Sodium 40 mg PO DAILY 10/29/16 [History] Propylene Glycol/Peg 400 [Systane 0.3-0.4% Eye Drops] 1 drop OP DAILY 10/29/16 [ History] Rosuvastatin Calcium [Crestor] 20 mg PO DAILY 10/29/16 [History] Sennosides [Senna] 17.2 mg PO HS 10/29/16 [History] Tizanidine HCl 4 mg PO BID PRN 10/29/16 [History] Allergies/Adverse Reactions: Allergies fluoxetine [From Prozac] Allergy (Verified 10/28/16 23:13) Anaphylaxis Sulfa (Sulfonamide Antibiotics) Allergy (Verified 10/28/16 23:13) Rash sumatriptan [From Imitrex] Allergy (Verified 10/28/16 23:13) Rash Procedures/tests Complete & Pending: Procedures Performed prior 72 hours Category Date Time Status CT head/brain wo con [CT] Stat Cat Scan 10/29/16 06:50 Completed Date of admission: 10/29/16 04:38 Primary care physician: Zach Disla MD Consults: 10/29/16 15:25 Consult to Securities Counselor [CONS] Routine Reason for SW Consult: discharge planning 10/29/16 15:41 Consult to Interpret Exam [CONS] Routine Consulting Provider: Alfonso Barnes Consult to Interpret Exam: Interpret EEG 10/30/16 10:11 Consult to Neurology [CONS] Routine Consulting Provider: [facility] Reason for Consult: psuedoseizures Call Completed: No Discharging clinician: Aakash Garces Anticipated date of discharge: 10/30/16 - Patient Status Disposition: Home, Self-Care Condition: Fair Overall status at discharge: patient is progressing back to baseline - Discharge Instructions Instructions: Chronic Obstructive Pulmonary Disease (DC), Chronic Hypertension (DC), Women and Epilepsy (DC), Women and Epilepsy (GEN), Cigarette Smoking and Your Health, Wet [place] Hanger (GEN) Follow Up With: Zach Disla MD [Primary Care Provider] - 11/06/16 3:15 pm Alfonso Barnes, DO [Partnered Physician] - (please call and make a follow up in 1-2 weeks. Thank you) Additional Instructions: Call [facility] and make a follow-up appointment with Dr. Alfonso Barnes. Hospital course: Ms. Su is a 51 year with medical history significant for cancer, COPD, coronary artery disease, CVA, GERD, hypertension, kidney stones, seizures, TIA, was brought in by because the patient had become unresponsive. He reports she was at her baseline level of health until 30 minutes after evening doses of medication. The think the drug in question was Trazodne, but he not sure. He reports that a new home health attendant apparently mixed up her medication causing this accidental overdose. No history of suicide ideation or intent. Her who was at bedside ([phone]) informs me he is her NOK/POA, as well as declare her FULL CODE status. In the ED she had a chest xray and head CT which both revealed no acute process. Patient became awake and alert shortly after admission to the hospital. She was treated with conservative measures including IV fluids and vital signs monitoring. Poison control was contacted, was made aware of the situation. They stated no interventions necessary at that time. They also said they would follow up on the case. patient remained alert and oriented times 3 throughout her stay. She denied chest pain or shortness of breath, nausea vomiting or diarrhea. She was noted to have some possible seizures in the ED. An EEG was ordered and interpreted by the neurologist. The impression of the EEG was within normal limits. Primarily reflective stage 2 sleep. No evidence of epileptiform activity identified during the study. Although a normal EEG does not preclude diagnosis of seizures or epilepsy. the case was discussed with neurologist Dr. Alfonso Barnes, and agreed that she should be seen and assessed outpatient in his clinic. Final diagnosis of accidental overdose with acute metabolic encephalopathy. Encephalopathy is often patient is now progressing back to baseline. This information was relayed to the patient and she agreed with the plan. Her vital signs were stable at the time of discharge. Chest X-Ray 10/28/16 22:53 IMPRESSION: No acute process. D/ / Freeman Flores MD / Freeman Flores MD Interpreting Provider: Freeman Flores MD Head CT 10/29/16 06:50 IMPRESSION: No acute intracranial abnormality. D/ / Caleb Foster MD / Caleb Foster MD Interpreting Provider: Caleb Foster MD - Time Spent with Patient Total time spent providing and/or coordinating discharge services: 45 Greater than 30 minutes - Constitutional Vitals: Temp Pulse Resp BP Pulse Ox 97.7 F 63 16 133/92 96 10/30/16 07:19 10/30/16 07:19 10/30/16 08:19 10/30/16 07:19 10/30/16 10:23 General appearance: Present: cooperative, A&O X 3, morbidly obese, pleasant, no acute distress - Head Head exam: Present: atraumatic, normocephalic - Eye Eye exam: Present: PERRL, conjuntiva pink, sclera anicteric Pupils: Present: PERRL - Neck Neck exam general surgery: Present: supple, trachea midline. Absent: lymphadenopathy - Respiratory Respiratory exam: Present: CTAB. Absent: accessory muscle use, rales, rhonchi, wheezes - Cardiovascular Cardiovascular exam: Present: RRR, +S1, +S2. Absent: diastolic murmur, gallop, rubs, systolic murmur - GI/Abdominal GI/Abdominal exam: Present: normal bowel sounds, soft, no peritoneal signs. Absent: distended, tenderness - Neurological Exam Neurological exam: Present: alert, CN II-XII intact, oriented X3, no focal deficits - Other Additional findings: Bilateral mastectomy - VTE Documentation of Mechanical Device: Intermittent pneumatic compression device <Aakash Garces P - Last Filed: 10/30/16 18:46> Procedures/tests Complete & Pending: Procedures Performed prior 72 hours Category Date Time Status CT head/brain wo con [CT] Stat Cat Scan 10/29/16 06:50 Completed Date of admission: 10/29/16 04:38 Primary care physician: Zach Disla MD Consults: 10/29/16 15:25 Consult to Securities Counselor [CONS] Routine Reason for SW Consult: discharge planning 10/29/16 15:41 Consult to Interpret Exam [CONS] Routine Consulting Provider: Alfonso Barnes Consult to Interpret Exam: Interpret EEG 10/30/16 10:11 Consult to Neurology [CONS] Routine Consulting Provider: [facility] Reason for Consult: psuedoseizures Call Completed: No Hospital course: Ms. Su is a 51 year old female - Time Spent with Patient Total time spent providing and/or coordinating discharge services: - Constitutional Vitals: Temp Pulse Resp BP Pulse Ox 98.1 F 69 16 134/97 97 10/30/16 15:31 10/30/16 15:31 10/30/16 15:31 10/30/16 15:31 10/30/16 15:31 - Attending Attestation I examined this patient and my medical decision-making was reviewed with the BIT SHAVER/PA/Advanced Practice Nurse/Resident Physician. I agree with the documented findings, disposition and treatment plan as described except to the extent set forth below.
[2016-10-30] MEDS: Ondansetron ODT 4 MG TAB.RAPDIS PO PRN (12:33)
--- NOTE | 2016-10-30 14:47 | Physician Discharge Referral ---
<Joshua Birch - Last Filed: 10/30/16 14:46> Home Health/Hosp Referral Info Transfer to: Home Health Provider in Charge Post Discharge: PCP - Diagnosis (1) Accidental overdose Priority: Primary Status: Resolved (2) Pseudoseizures Priority: Secondary Status: Chronic (3) HTN (hypertension) Priority: Secondary Status: Chronic (4) COPD (chronic obstructive pulmonary disease) Priority: Secondary Status: Chronic (5) DVT prophylaxis Priority: Secondary Status: Acute - Respiratory Orders Smoking Cessation: Smoking cessation has been advised. For more information, call the [place] Tobacco Quit Line at 9-984-CKMU-NOW. - Services Needed Following services are medically necessary services: Nursing, Physical Therapy - Transfer Medications Home Medications: Calcium Carbonate/Vitamin D3 [Calcium 600 + D Tablet] 1 tab PO BID 05/31/15 [ History] Diltiazem HCl [Diltiazem 12Hr ER] 60 mg PO QAM 05/31/15 [History] Isosorbide MONOnitrate (24 HR) [Imdur] 60 mg PO BID 05/31/15 [History] Nitroglycerin [Nitrostat] 0.4 mg SL PRN PRN 05/31/15 [History] Trazodone HCl [TraZODone] 300 mg PO HS 05/31/15 [History] Venlafaxine XR (24 HR) [Effexor XR] 150 mg PO QAM 05/31/15 [History] Multivit-Minerals/Folic Acid [Adult Multi Gummies] 200 mcg PO DAILY #30 tab.chew 09/25/15 [Rx] Fluticasone/Salmeterol [Advair 500-50 Diskus] 1 each IH BID 12/15/15 [History] Lidocaine Patch [Lidoderm 5% patch] 1 each TP DAILY 12/15/15 [History] Tiotropium [Spiriva] 18 mcg IH DAILY 12/15/15 [History] Dicyclomine [Bentyl] 10 mg PO TID #90 capsule 02/08/16 [Rx] Polyethylene Glycol 3350 [MiraLAX] 17 gm PO DAILY #30 powd.pack 02/08/16 [Rx] ClonazePAM [Klonopin] 1 mg PO TID 04/01/16 [History] Prochlorperazine Maleate [Compazine] 10 mg PO Q6HR PRN #60 tablet 04/17/16 [Rx] Ondansetron HCl [Zofran] 4 - 8 mg PO Q6H PRN 05/03/16 [History] Oxygen 2 l NS HS 05/03/16 [History] Letrozole [Femara] 2.5 mg PO DAILY #30 tablet 05/20/16 [Rx] Cetirizine HCl [Zyrtec] 10 mg PO DAILY 06/28/16 [History] Sucralfate [Carafate] 1 gm PO QIDAC #120 tablet 09/23/16 [Rx] Docusate [Colace] 200 mg PO TID PRN #180 capsule 10/22/16 [Rx] Albuterol Neb [Proventil Neb] 2.5 mg IH QID PRN 10/29/16 [History] Benzoyl Peroxide 1 appl TP 3XW 10/29/16 [History] Diclofenac Sodium [Voltaren] 1 appl TP TID PRN 10/29/16 [History] Ergocalciferol (VITAMIN D2) [Vitamin D2] 50,000 unit PO QWEEK 10/29/16 [History] Fluocinolone Acetonide [Synalar] 1 appl TP DAILY 10/29/16 [History] Fluticasone Propionate Nasal [Flonase] 1 spray NS DAILY PRN 10/29/16 [History] Furosemide [Lasix] 20 - 40 mg PO DAILY PRN 10/29/16 [History] Gabapentin [Neurontin] 400 mg PO QAM 10/29/16 [History] Gabapentin [Neurontin] 800 mg PO HS 10/29/16 [History] GuaiFENesin/Dextromethorphan [Mucinex Dm] 1 tab PO BID PRN 10/29/16 [History] Hydrocortisone 2.5% CREAM [Cortaid] 1 applic TP BID PRN 10/29/16 [History] Levalbuterol Tartrate [Xopenex Hfa] 4 puff IH Q6H PRN 10/29/16 [History] Lidocaine 4% CRM (LMX) [Lmx 4] 1 appl TP BID PRN 10/29/16 [History] Lubiprostone [Amitiza] 8 mcg PO BID 10/29/16 [History] Magic Mouthwash [Magic Mouthwash BLM] 5 - 10 ml PO Q4H PRN 10/29/16 [History] Mupirocin [Bactroban Oint] 1 appl TP TID 10/29/16 [History] Nabumetone [Relafen] 500 mg PO BID 10/29/16 [History] Nicotine Patch [Nicoderm] 21 mg TD DAILY 10/29/16 [History] Nystatin [Nystatin Suspension] 10 ml PO TID 10/29/16 [History] Pantoprazole Sodium 40 mg PO DAILY 10/29/16 [History] Propylene Glycol/Peg 400 [Systane 0.3-0.4% Eye Drops] 1 drop OP DAILY 10/29/16 [ History] Rosuvastatin Calcium [Crestor] 20 mg PO DAILY 10/29/16 [History] Sennosides [Senna] 17.2 mg PO HS 10/29/16 [History] Tizanidine HCl 4 mg PO BID PRN 10/29/16 [History] Allergies/Adverse Reactions: Allergies fluoxetine [From Prozac] Allergy (Verified 10/28/16 23:13) Anaphylaxis Sulfa (Sulfonamide Antibiotics) Allergy (Verified 10/28/16 23:13) Rash sumatriptan [From Imitrex] Allergy (Verified 10/28/16 23:13) Rash Certification: Further, I certify that my clinical findings support that this patient is homebound (i.e. absences from home require considerable and taxing effort and are for medical reasons or alevism services or infrequently or short duration when for other reasons) because: Homebound Reason: Patient requires assistance of a person or device to safely leave home Attestation: My signature below is to certify that this patient is under my care and that I, or nurse practitioner, or a physician's preschool assistant teacher working with me, has a face-to -face encounter with this patient. <Aakash Garces P - Last Filed: 10/30/16 18:46> - Respiratory Orders Smoking Cessation: Smoking cessation has been advised. For more information, call the [place] Tobacco Quit Line at 8-805-BVPG-NOW. Certification: Further, I certify that my clinical findings support that this patient is homebound (i.e. absences from home require considerable and taxing effort and are for medical reasons or alevism services or infrequently or short duration when for other reasons) because: Attestation: My signature below is to certify that this patient is under my care and that I, or nurse practitioner, or a physician's preschool assistant teacher working with me, has a face-to -face encounter with this patient.
[2016-10-30 15:33] VITALS: BP 134/97
== END 2016-10-30 18:03 | disposition home or self-care (01) | DRG 812 ==
LOC: EMEROO 22:43 → 2NENU 22:43 → SUATTDRO 10-29 04:38 → 2NENU 10-29 14:09
PROVIDERS: ADMIT Internal Medicine Sleep Medicine; ATTEND Internal Medicine

== ENCOUNTER 2018-11-25 15:48 | Observation (INO) ==
[2018-11-25] MEDS ORDERED: 0.9 % Sodium Chloride 1,000 ML IVC ONE (16:14)
--- NOTE | 2018-11-25 16:28 | Emergency Department Note ---
Disposition Clinical Impression: Intractable nausea and vomiting Qualifiers: Vomiting type: unspecified Qualified Code(s): R11.2 - Nausea with vomiting, unspecified Disposition: Admitted As Inpatient General Adult HPI - General Chief complaint: ED Nausea/Vomiting/Diarrhea Stated complaint: Vomiting Time Seen by Provider: 11/25/18 15:58 Source: patient Limitations: no limitations Nursing Notes Reviewed: Yes Vital Signs Reviewed: Yes - History of Present Illness HPI Narrative: Attestation note: Patient was seen with the emergency medicine resident/nurse practitioner/physician hearing and speech assistant/transitional resident/medical student: Dr. AMARIS WILSON I have personally performed a face to face evaluation on this patient. I have reviewed and agree with history and physical examination patient management and disposition. Briefly the salient points of the case are as follows: 53-year-old female long- standing history of multiple GI problems. In fact just came here from the clinic after seeing the [place] technical sales representative Dr. LEBRON. Apparently patient has swallowed Valium pill, and it stuck in the duodenum. This recommendations were to come to the emergency department for evaluation management and treatment with admission to the hospitalist service and EGD to be performed tomorrow. Patient is actively dry heaving and vomiting up nonbilious material her abdomen is surgically benign and slightly distended patient is getting IV fluids anti- medics screening labs. Admission disposition pending Pain Scale: 6 - Related Data Home Medications Medication Instructions Recorded Confirmed Isosorbide MONOnitrate (24 HR) 60 mg PO QAM 05/31/15 06/17/18 [Imdur] Nitroglycerin [Nitrostat] 0.4 mg SL PRN PRN 05/31/15 06/17/18 Trazodone HCl [TraZODone] 300 mg PO 05/31/15 06/17/18 Tiotropium [Spiriva] 18 mcg IH DAILY 12/15/15 06/17/18 clonazePAM [Klonopin] 1 mg PO BID 04/01/16 06/17/18 Ondansetron HCl [Zofran] 4 - 8 mg PO Q6H PRN 05/03/16 06/17/18 Oxygen 2 l NS 05/03/16 06/17/18 Cetirizine HCl [Zyrtec] 10 mg PO DAILY 06/28/16 06/17/18 Ergocalciferol (VITAMIN D2) 50,000 unit PO FR 10/29/16 06/17/18 [Vitamin D2] Fluticasone Propionate Nasal 1 spray NS DAILY PRN 10/29/16 06/17/18 [Flonase] Magic Mouthwash [Magic Mouthwash 5 - 10 ml PO Q4H PRN 10/29/16 06/17/18 BLM] Propylene Glycol/Peg 400 [Systane 1 drop OP DAILY 10/29/16 06/17/18 0.3-0.4% Eye Drops] Rosuvastatin Calcium [Crestor] 20 mg PO DAILY 10/29/16 06/17/18 Tizanidine HCl 4 mg PO TID 10/29/16 06/17/18 Diltiazem HCl [Cardizem] 60 mg PO QAM 12/05/16 06/17/18 Polyethylene Glycol 3350 [MiraLAX] 17 gm PO DAILY PRN 12/05/16 06/17/18 Venlafaxine XR (24 HR) [Effexor XR] 75 mg PO BID 12/05/16 06/17/18 Multivitamin [Multi-Day Vitamins] 1 each PO DAILY 01/02/17 06/17/18 Levalbuterol Tartrate [Xopenex Hfa] 15 gm IH AD 04/15/17 06/17/18 Celecoxib [Celebrex] 200 mg PO BID 12/22/17 06/17/18 Fluticasone/Vilanterol [Breo 1 each IH DAILY 12/22/17 06/17/18 Ellipta 100-25 Mcg INH] Isosorbide MONOnitrate [Isosorbide 30 mg PO QPM 12/22/17 06/17/18 Mononitrate] Previous Rx's Medication Instructions Recorded Docusate [Colace] 200 mg PO TID PRN #180 capsule 10/22/16 Prochlorperazine Maleate 10 mg PO Q6HR PRN #30 tablet 11/18/16 [Compazine] Calcium Carbonate/Vitamin D3 1 each PO DAILY #30 tablet 01/15/17 [Calcium 500 + Vit D Caplet] Multivitamin [One Daily Essential] 1 each PO DAILY #90 tablet 12/25/17 Lidocaine [Lidoderm] 1 each TP DAILY 30 Days #30 06/17/18 adh..patch Allergies Allergy/AdvReac Type Severity Reaction Status Date / Time fluconazole [From Diflucan] Allergy Seizure Verified 06/17/18 11:11 fluoxetine [From Prozac] Allergy Difficulty Verified 06/17/18 11:11 Breathing Sulfa (Sulfonamide Allergy Rash Verified 06/17/18 11:11 Antibiotics) sumatriptan [From Imitrex] Allergy Rash Verified 06/17/18 11:11 Past Medical History - Past Medical History Medical history: Reports: cancer, COPD, CVA, fibromyalgia, GERD, hypertension, kidney stones, seizures, other Surgical history: Reports: appendectomy, cancer surgery, cholecystectomy, hysterectomy, other Psychiatric history: Reports: anxiety, depression ROUNDSMAN history: Reports: no ROUNDSMAN history - Social History Smoking Status: Current every day smoker Smokeless Tobacco Status: No Alcohol use: Reports: none Drug use: Reports: prescription drug abuse Physical Exam - General Limitations: no limitations General appearance: alert, in no apparent distress Course Vital Signs Temperature 97.6 F 11/25/18 16:04 Pulse Rate 123 11/25/18 16:04 Respiratory Rate 22 11/25/18 16:04 Blood Pressure 137/90 11/25/18 16:04 O2 Sat by Pulse Oximetry 97 11/25/18 16:04 Temperature 97.6 F 11/25/18 16:04 Pulse Rate 123 11/25/18 16:04 Respiratory Rate 22 11/25/18 16:04 Blood Pressure 137/90 11/25/18 16:04 O2 Sat by Pulse Oximetry 97 11/25/18 16:04 Oxygen Delivery Oxygen Delivery Room Air
[2018-11-25] MEDS: Ondansetron 4 MG/2 ML VIAL IVP ONE ×2 (16:29→18:55)
[2018-11-25 16:44] LABS: Basophils # 0.1 K/mcL (0.0-0.2); Basophils % 0.8 %; Eosinophils # 0.1 K/mcL (0.0-0.6); Hematocrit 43.4 % (35.3-44.9); Hemoglobin 14.5 g/dL (11.5-15.4); Immature Granulocytes % 0.3 % (0-4); Lymphocytes # 3.2 K/mcL (0.6-4.6); Mean Corpuscular HGB Conc 33.4 g/dL (31.6-35.5); Mean Corpuscular Hemoglobin 30.1 pg (28.0-33.3); Mean Platelet Volume 9.7 fL (9.4-12.4); Monocytes # 0.6 K/mcL (0.0-1.3); Monocytes % 7.1 %; Neutrophils # 3.9 K/mcL (1.6-8.9); Platelet Count 273 K/mcL (140-400); Red Blood Count 4.82 M/mcL (3.82-4.97); Red Cell Distribution Width 12.6 % (11.5-14.5); Segmented Neutrophils % 49.8 %
[2018-11-25] MEDS ORDERED: *HR* Promethazine 25 MG/ML VIAL IVP ONE (16:45)
--- NOTE | 2018-11-25 16:50 | Emergency Department Note ---
Disposition Clinical Impression: Intractable nausea and vomiting Qualifiers: Vomiting type: unspecified Qualified Code(s): R11.2 - Nausea with vomiting, unspecified Disposition: Admitted As Inpatient Nausea/Vomiting/Diarrhea HPI - General Chief complaint: ED Nausea/Vomiting/Diarrhea Stated complaint: Vomiting Time Seen by Provider: 11/25/18 15:58 Source: patient Limitations: no limitations Nursing Notes Reviewed: Yes Vital Signs Reviewed: Yes - History of Present Illness HPI Narrative: Patient is a 53-year-old female presenting to [facility] ED for a 2 day history of intractable nausea and vomiting. Patient's is in room acting as code historian. Patient's states that the patient has been experiencing gradually progressive and worsening nausea and vomiting for months but that in the past 2 days that the patient has not responded to her usual sonogram and has not been able to keep any food or water down without vomiting. Patient follows with Dr. 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 Dr. Denson would like pt. admitted for evaluation and management of intractable nausea and vomiting. Patient scheduled for EGD with Dr. Denson tomorrow. Upon initial examination patient sitting upright in hospital bed, she is actively retching, patient appears to be in moderate distress. The patient is otherwise awake, alert, engaged to conversation and able to answer questions appropriately, patient is not producing emesis at this time. Patient states that the last time she was able to bring up emesis was today about noon. Patient also states that she has not had a bowel movement in the past 3 days. In addition to the above-mentioned symptoms, patient admits to PURVIS/dizziness, abdominal pain, chest muscle pain which patient attributes to active retching. Patient denies shortness of breath, hematuria/hematochezia, numbness or pares thesias or difficulty with ambulation. Pt Subjective Complaint: nausea, vomiting, abdominal pain, other (Constipation) Onset (ago): day(s) Associated Abdominal Pain: Yes If pain, Location of pain: RUQ - Related Data Home Medications Medication Instructions Recorded Confirmed Isosorbide MONOnitrate (24 HR) 60 mg PO QAM 05/31/15 06/17/18 [Imdur] Nitroglycerin [Nitrostat] 0.4 mg SL PRN PRN 05/31/15 06/17/18 Trazodone HCl [TraZODone] 300 mg PO HS 05/31/15 06/17/18 Tiotropium [Spiriva] 18 mcg IH DAILY 12/15/15 06/17/18 clonazePAM [Klonopin] 1 mg PO BID 04/01/16 06/17/18 Ondansetron HCl [Zofran] 4 - 8 mg PO Q6H PRN 05/03/16 06/17/18 Oxygen 2 l NS HS 05/03/16 06/17/18 Cetirizine HCl [Zyrtec] 10 mg PO DAILY 06/28/16 06/17/18 Ergocalciferol (VITAMIN D2) 50,000 unit PO FR 10/29/16 06/17/18 [Vitamin D2] Fluticasone Propionate Nasal 1 spray NS DAILY PRN 10/29/16 06/17/18 [Flonase] Magic Mouthwash [Magic Mouthwash 5 - 10 ml PO Q4H PRN 10/29/16 06/17/18 BLM] Propylene Glycol/Peg 400 [Systane 1 drop OP DAILY 10/29/16 06/17/18 0.3-0.4% Eye Drops] Rosuvastatin Calcium [Crestor] 20 mg PO DAILY 10/29/16 06/17/18 Tizanidine HCl 4 mg PO TID 10/29/16 06/17/18 Diltiazem HCl [Cardizem] 60 mg PO QAM 12/05/16 06/17/18 Polyethylene Glycol 3350 [MiraLAX] 17 gm PO DAILY PRN 12/05/16 06/17/18 Venlafaxine XR (24 HR) [Effexor XR] 75 mg PO BID 12/05/16 06/17/18 Multivitamin [Multi-Day Vitamins] 1 each PO DAILY 01/02/17 06/17/18 Levalbuterol Tartrate [Xopenex Hfa] 15 gm IH AD 04/15/17 06/17/18 Celecoxib [Celebrex] 200 mg PO BID 12/22/17 06/17/18 Fluticasone/Vilanterol [Breo 1 each IH DAILY 12/22/17 06/17/18 Ellipta 100-25 Mcg INH] Isosorbide MONOnitrate [Isosorbide 30 mg PO QPM 12/22/17 06/17/18 Mononitrate] Previous Rx's Medication Instructions Recorded Docusate [Colace] 200 mg PO TID PRN #180 capsule 10/22/16 Prochlorperazine Maleate 10 mg PO Q6HR PRN #30 tablet 11/18/16 [Compazine] Calcium Carbonate/Vitamin D3 1 each PO DAILY #30 tablet 01/15/17 [Calcium 500 + Vit D Caplet] Multivitamin [One Daily Essential] 1 each PO DAILY #90 tablet 12/25/17 Lidocaine [Lidoderm] 1 each TP DAILY 30 Days #30 06/17/18 adh..patch Allergies Allergy/AdvReac Type Severity Reaction Status Date / Time fluconazole [From Diflucan] Allergy Seizure Verified 06/17/18 11:11 fluoxetine [From Prozac] Allergy Difficulty Verified 06/17/18 11:11 Breathing Sulfa (Sulfonamide Allergy Rash Verified 06/17/18 11:11 Antibiotics) sumatriptan [From Imitrex] Allergy Rash Verified 06/17/18 11:11 All systems ED: reviewed and negative except as stated. Review of Systems: As Per HPI Past Medical History - Past Medical History Medical history: Reports: cancer, COPD, CVA, fibromyalgia, GERD, hypertension, kidney stones, seizures, other Surgical history: Reports: appendectomy, cancer surgery, cholecystectomy, hysterectomy, other Psychiatric history: Reports: anxiety, depression ALTERNATIVE MEDICINE PRACTITIONER history: Reports: no ALTERNATIVE MEDICINE PRACTITIONER history - Social History Smoking Status: Current every day smoker Smokeless Tobacco Status: No Alcohol use: Reports: none Drug use: Reports: prescription drug abuse Physical Exam - General Limitations: no limitations General appearance: alert, in no apparent distress - Head Head exam: atraumatic, normocephalic, normal inspection - Eye Eye exam: Present: normal appearance, PERRL, EOMI. Absent: scleral icterus - Neck Neck exam: Present: normal inspection, trachea midline - Chest Chest inspection: Present: normal inspection, symmetric chest wall rise - Respiratory Respiratory exam: Present: normal lung sounds bilaterally. Absent: respiratory distress, wheezes, stridor, accessory muscle use, prolonged expiratory phase - Cardiovascular Cardiovascular exam: Present: regular rate, normal rhythm, normal heart sounds, +S1, +S2. Absent: systolic murmur, diastolic murmur, JVD, +S3, +S4 - Abdominal Exam Abdominal exam: Present: soft, tenderness, normal bowel sounds. Absent: distention, guarding, rebound, rigidity Abdominal tenderness: Present: RUQ - Neurological Exam Neurological exam: Present: alert, oriented X3 - Psychiatric Psychiatric exam: Present: normal affect, normal mood - Skin Skin exam: Present: warm, dry, intact, normal color. Absent: cyanosis, diaphoresis, erythema, pallor, mottled Course Course Narrative: CMP will be performed here in the ED while continuing CBC and vitamin D series from Dr. Gomez Patient will be given Zofran and Phenergan for the management of her symptoms Patient was given 1 L fluid bolus for the management of dehydration. Vital Signs Temperature 97.6 F 11/25/18 16:04 Pulse Rate 123 11/25/18 16:04 Respiratory Rate 22 11/25/18 16:04 Blood Pressure 137/90 11/25/18 16:04 O2 Sat by Pulse Oximetry 97 11/25/18 16:04 Temperature 97.6 F 11/25/18 16:04 Pulse Rate 98 11/25/18 18:50 Respiratory Rate 20 11/25/18 18:50 Blood Pressure 145/94 11/25/18 18:50 O2 Sat by Pulse Oximetry 96 11/25/18 18:50 Oxygen Delivery Oxygen Delivery Room Air Nausea/Vomiting/Diarrhea - MDM Narrative Medical decision making narrative: Patient will be admitted to hospitalist medicine service for further evaluation and management of intractable nausea and vomiting Dr. Denson will follow patient while in hospital with intent for EGD Admission planning discussed at length with the patient and patient verbalizes her understanding and agreement with this plan Patient is hemodynamically stable at the time of admission. - Lab Data Lab results reviewed: Yes I reviewed the patient's lab results. Result diagrams: 11/25/18 16:27 11/25/18 16:27 Lab Results 11/25/18 11/25/18 Range/Units 16:27 16:27 WBC 7.7 (4.3-11.1) K/mcL RBC 4.82 (3.82-4.97) M/mcL Hgb 14.5 (11.5-15.4) g/dL Hct 43.4 (35.3-44.9) % MCV 90.0 (83.0-100.0) fL MCH 30.1 (28.0-33.3) pg MCHC 33.4 (31.6-35.5) g/dL RDW 12.6 (11.5-14.5) % Plt Count 273 (140-400) K/mcL MPV 9.7 (9.4-12.4) fL Immature Gran % 0.3 (0-4) % Seg Neutrophils % 49.8 % Lymphocytes % 41.0 % Monocytes % 7.1 % Eosinophils % 1.0 % Basophils % 0.8 % Neutrophils # 3.9 (1.6-8.9) K/mcL Lymphocytes # 3.2 (0.6-4.6) K/mcL Monocytes # 0.6 (0.0-1.3) K/mcL Eosinophils # 0.1 (0.0-0.6) K/mcL Basophils # 0.1 (0.0-0.2) K/mcL Sodium 139 (136-145) mEq/L Potassium 3.6 (3.5-5.1) mEq/L Chloride 107 (98-107) mEq/L Carbon Dioxide 20 L (23-29) mEq/L BUN 11 (6-20) mg/dL Creatinine 0.63 (0.60-1.20) mg/dL Est GFR ( Amer) > 60 (> 60) Est GFR (Non-Af Amer) > 60 (> 60) BUN/Creatinine Ratio 17 (6-26) Glucose 157 H (70-105) mg/dL Calculated Osmolality 291 (280-300) Calcium 9.7 (8.6-10.3) mg/dL Total Bilirubin 0.4 (0.3-1.0) mg/dL AST 34 (13-39) Units/L ALT 47 (7-52) Units/L Alkaline Phosphatase 125 H (34-104) Units/L Serum Total Protein 7.2 (6.4-8.9) g/dL Albumin 4.7 (3.5-5.7) g/dL Globulin 2.5 (2.4-3.5) g/dL Albumin/Globulin Ratio 1.9 (1.1-2.2) - EKG Data EKG attestation: Yes I reviewed and interpreted this EKG. EKG results narrative: Patient EKG shows a sinus tachycardia with a ventricular rate of 112 bpm NJ interval 150 ms, QS duration 96 ms, QT/QTc interval 354/484 ms respectively. There are no significant ST segment elevations, depressions, abnormal T-wave inversions, pathologic Q waves, or any other signs of acute ischemic change. This EKG performed today is generally consistent with prior EKG performed on January 022016.
[2018-11-25 17:03] LABS: Alanine Aminotransferase 47 Units/L (7-52); Albumin 4.7 g/dL (3.5-5.7); Albumin/Globulin Ratio 1.9 (1.1-2.2); Alkaline Phosphatase 125 Units/L (34-104); Aspartate Amino Transferase 34 Units/L (13-39); BUN/Creatinine Ratio 17 (6-26); Bilirubin,Total 0.4 mg/dL (0.3-1.0); Blood Urea Nitrogen 11 mg/dL (6-20); Calcium 9.7 mg/dL (8.6-10.3); Carbon Dioxide 20 mEq/L (23-29); Chloride 107 mEq/L (98-107); Globulin 2.5 g/dL (2.4-3.5); Glucose 157 mg/dL (70-105); Osmolality,Calculated 291 (280-300); Potassium 3.6 mEq/L (3.5-5.1); Sodium 139 mEq/L (136-145); Total Protein 7.2 g/dL (6.4-8.9); eGFR For Non-African Americans > 60 (> 60)
[2018-11-25] MEDS ORDERED: Ondansetron 4 MG/2 ML VIAL IVP ONE (17:41)
[2018-11-25] MEDS ORDERED: Naloxone 0.4 MG/ML INJ IVP PRN (18:11)
--- NOTE | 2018-11-25 18:22 | Internal Med History&Physical ---
Date of Encounter: 11/25/18 Time of Encounter: 18:20 Internal Medicine - H&P: HPI Chief complaint: N/V Admitted From: Emergency Dept Plans for Post Hospital Care: Home History of present illness: Ms. 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 Patient presented to [facility] emergency department after a 2 day history of intractable nausea and vomiting. Patient had been dancing gradual progression of worsening nausea and vomiting over the past 2 days and has not been able to tolerate any food or water. Unable to take any anti- emetics Denies any hematemesis states she consumes food or fluid she immediately vomits Does follow with Dr. Denson and was seen in his office and was advised to come to the ER for evaluation and management of nausea and vomiting. She will undergo a EGD in the a.m. per Dr. Denson. Currently patient is retching attempting to speak in between retching. She complains of a headache as well as right upper quadrant and chest pain. She is hemodynamically stable at this time Past Med Surg Social Fam HX - Past Medical History Medical history: cancer, COPD, CVA, fibromyalgia, GERD, hypertension, kidney stones, seizures, other Additional medical history: sleep apnea -osteoparthrisis - endometriosis , breast cancer Psychiatric history: anxiety, depression - Past Surgical History Surgical History: appendectomy, cancer surgery, cholecystectomy, hysterectomy, other Additional surgical history: knee replacement. esophagus surgery - Social History Smoking Status: Current every day smoker Smokeless Tobacco Status: No Alcohol use: none Drug use: prescription drug abuse - Family History Mother Living Status: Still Living Hx Family Cancer: Yes Father Living Status: Hx Family Cardiac Disorders: Yes Hx Family Cancer: Yes Internal Medicine - H&P: Meds Isosorbide MONOnitrate (24 HR) [Imdur] 60 mg PO QAM 05/31/15 [History] Nitroglycerin [Nitrostat] 0.4 mg SL PRN PRN 05/31/15 [History] Trazodone HCl [TraZODone] 300 mg PO HS 05/31/15 [History] Tiotropium [Spiriva] 18 mcg IH DAILY 12/15/15 [History] clonazePAM [Klonopin] 1 mg PO BID 04/01/16 [History] Ondansetron HCl [Zofran] 4 - 8 mg PO Q6H PRN 05/03/16 [History] Oxygen 2 l NS HS 05/03/16 [History] Cetirizine HCl [Zyrtec] 10 mg PO DAILY 06/28/16 [History] Docusate [Colace] 200 mg PO TID PRN #180 capsule 10/22/16 [Rx] Ergocalciferol (VITAMIN D2) [Vitamin D2] 50,000 unit PO FR 10/29/16 [History] Fluticasone Propionate Nasal [Flonase] 1 spray NS DAILY PRN 10/29/16 [History] Magic Mouthwash [Magic Mouthwash BLM] 5 - 10 ml PO Q4H PRN 10/29/16 [History] Propylene Glycol/Peg 400 [Systane 0.3-0.4% Eye Drops] 1 drop OP DAILY 10/29/16 [History] Rosuvastatin Calcium [Crestor] 20 mg PO DAILY 10/29/16 [History] Tizanidine HCl 4 mg PO TID 10/29/16 [History] Prochlorperazine Maleate [Compazine] 10 mg PO Q6HR PRN #30 tablet 11/18/16 [Rx] Diltiazem HCl [Cardizem] 60 mg PO QAM 12/05/16 [History] Polyethylene Glycol 3350 [MiraLAX] 17 gm PO DAILY PRN 12/05/16 [History] Venlafaxine XR (24 HR) [Effexor XR] 75 mg PO BID 12/05/16 [History] Multivitamin [Multi-Day Vitamins] 1 each PO DAILY 01/02/17 [History] Calcium Carbonate/Vitamin D3 [Calcium 500 + Vit D Caplet] 1 each PO DAILY #30 tablet 01/15/17 [Rx] Levalbuterol Tartrate [Xopenex Hfa] 15 gm IH AD 04/15/17 [History] Celecoxib [Celebrex] 200 mg PO BID 12/22/17 [History] Fluticasone/Vilanterol [Breo Ellipta 100-25 Mcg INH] 1 each IH DAILY 12/22/17 [H istory] Isosorbide MONOnitrate [Isosorbide Mononitrate] 30 mg PO QPM 02/26/18 [History] Multivitamin [One Daily Essential] 1 each PO DAILY #90 tablet 12/25/17 [Rx] Lidocaine [Lidoderm] 1 each TP DAILY 30 Days #30 adh..patch 06/17/18 [Rx] Allergy/AdvReac Type Severity Reaction Status Date / Time fluconazole [From Diflucan] Allergy Seizure Verified 06/17/18 11:11 fluoxetine [From Prozac] Allergy Difficulty Verified 06/17/18 11:11 Breathing Sulfa (Sulfonamide Allergy Rash Verified 06/17/18 11:11 Antibiotics) sumatriptan [From Imitrex] Allergy Rash Verified 06/17/18 11:11 ROS unobtainable: other (Patient is retching uncontrollably) All Systems PM: A 10-system review of systems was performed and is negative for pertinent findings except as documented above in the HPI. - Constitutional Vitals: Temp Pulse Resp BP Pulse Ox 97.6 F 113 14 137/87 98 11/25/18 16:04 11/25/18 17:14 11/25/18 17:14 11/25/18 17:14 11/25/18 17:14 General appearance: Present: A&O X 3 Exam: . - Head Head exam: Present: atraumatic, normocephalic - Eye Eye exam: Present: PERRL, conjuntiva pink, sclera anicteric Pupils: Present: PERRL - Neck Neck exam general surgery: Present: supple, trachea midline. Absent: lymphadenopathy - Respiratory Respiratory exam: Present: CTAB. Absent: accessory muscle use, rales, rhonchi, wheezes - Cardiovascular Cardiovascular exam: Present: RRR, +S1, +S2. Absent: diastolic murmur, gallop, rubs, systolic murmur - GI/Abdominal GI/Abdominal exam: Present: normal bowel sounds, soft, tenderness, no peritoneal signs. Absent: distended Additional comments: Tenderness to right upper quadrant during palpation - Extremities Exam Extremities exam: Present: warm, radial pulses palpable and symmetrical. Absent: calf tenderness, cyanotic, pedal edema - Neurological Exam Neurological exam: Present: CN II-XII intact, oriented X3, no focal deficits. Absent: pronater drift, facial droop, speech deficit - Skin Skin exam: Present: dry, intact Internal Med - H&P Results - Labs CBC & Chem 7: 11/25/18 16:27 11/25/18 16:27 Labs: Short CBC 11/25/18 Range/Units 16:27 WBC 7.7 (4.3-11.1) K/mcL Hgb 14.5 (11.5-15.4) g/dL Hct 43.4 (35.3-44.9) % Plt Count 273 (140-400) K/mcL Neutrophils # 3.9 (1.6-8.9) K/mcL BMP 11/25/18 16:27 Sodium 139 Potassium 3.6 Chloride 107 Carbon Dioxide 20 L BUN 11 Creatinine 0.63 Glucose 157 H Calcium 9.7 Liver Function 11/25/18 Range/Units 16:27 Total Bilirubin 0.4 (0.3-1.0) mg/dL AST 34 (13-39) Units/L ALT 47 (7-52) Units/L Alkaline Phosphatase 125 H (34-104) Units/L Albumin 4.7 (3.5-5.7) g/dL - Assessment and plan (1) Intractable nausea and vomiting Current Visit: Yes Status: Acute Assessment and plan: Patient has been experiencing 2 day history of intractable nausea and vomiting. Unable to tolerate any oral intake or medications. 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 Qualifiers: Vomiting type: unspecified Qualified Code(s): R11.2 - Nausea with vomiting, unspecified (2) DVT prophylaxis Current Visit: No Status: Acute Assessment and plan: Heparin subcutaneous (3) COPD (chronic obstructive pulmonary disease) Current Visit: No Status: Chronic Assessment and plan: Currently stable does not appear to be exacerbation Patient will require oxygen at night Broncho- dilators as needed Qualifiers: COPD type: unspecified COPD Qualified Code(s): J44.9 - Chronic obstructive pulmonary disease, unspecified (4) GERD (gastroesophageal reflux disease) Current Visit: No Status: Chronic Assessment and plan: Protonix IV Qualifiers: Esophagitis presence: without esophagitis Qualified Code(s): K21.9 - Gastro-esophageal reflux disease without esophagitis (5) HTN (hypertension) Current Visit: No Status: Chronic Assessment and plan: We will continue with home medications once verified Qualifiers: Hypertension type: essential hypertension Qualified Code(s): I10 - Essential (primary) hypertension (6) History of pseudoseizure Current Visit: Yes Status: Acute Assessment and plan: Patient states she has a history of pseudoseizures-seizure was approximately a week ago continue with home medications once verified and seizure precautions (7) Coronary artery spasm Current Visit: Yes Status: Acute Assessment and plan: Patient has a history of coronary artery spasm according to cardiology note 11/24/2018 [facility]-last cardiac catheterization showed nonobstructive CAD 08/06/2000 1630% stenosis in the proximal LAD 20% stenosis in the proximal circumflex 20% stenosis in proximal RCA. There is a 15% stenosis in the mid RCA phonological nuclear stress test 11/17/18 no ischemia or infarct on perfusion study continue with Imdur patient continues to smoke encouraged to stop smoking Continue with all medications Toprol and Imdur once patient is able tolerate oral intake (8) Chest pain Current Visit: Yes Status: Acute Assessment and plan: Most likely secondary to retching. Will check EKG-last cardiac catheterization showed nonobstructive CAD 08/06/2000 1630% stenosis in the proximal LAD 20% stenosis in the proximal circumflex 20% stenosis in proximal RCA. There is a 15% stenosis in the mid RCA phonological nuclear stress test 11/17/18 no ischemia or infarct on perfusion study We will obtain troponin Nitroglycerin as needed Qualifiers: Chest pain type: unspecified Qualified Code(s): R07.9 - Chest pain, unspecified - Time Spent With Patient Total time spent is greater than 50% in coordination of care (as documented) at patient's floor/unit and/or counseling patient:
[2018-11-25] MEDS ORDERED: Ondansetron 4 MG/2 ML VIAL ONE (18:44)
[2018-11-25 19:29] LABS: Troponin I < 0.03 ng/mL (< 0.04)
[2018-11-25] MEDS: 0.9 % Sodium Chloride 1,000 ML IVC SCH (21:10)
[2018-11-25] MEDS ORDERED: Prochlorperazine 10 MG/2 ML VIAL IVP PRN (21:11)
[2018-11-25] MEDS ORDERED: Ketorolac 15 MG/ML VIAL IVP ONE (21:45)
[2018-11-25] MEDS ORDERED: *HR* Promethazine 25 MG/ML VIAL IVP PRN (23:02)
[2018-11-25] MEDS ORDERED: Acetaminophen IV 1,000 MG/100 ML INFUS..BTL IVPB ONE (23:45)
--- NOTE | 2018-11-25 23:50 | Event Note ---
Date of Encounter: 11/25/18 Time of Encounter: 23:46 Alerted by pts. nurse Nereida RN that the pt. continued to vomit and wretch. Pt. had received Phenergan in the ED. PO Compazine was ordered and changed to IVP d/t intractable N/V. Pt. also reporting headache and abdominal pain d/t constant vomiting and wretching. IVP Toradol administered w/o relief. IVPB Ofirmev ordered d/t pt. being unable to keep any PO medications down. IVPB Ofirmev may be the best choice d/t consistent administration and pain control via IV. Nurse instructed to continue to monitor pt. closely and notify me immediately of any adverse changes.
[2018-11-26] MEDS ORDERED: Ketorolac 30 MG/ML VIAL IVP ONE (03:32)
[2018-11-26] MEDS: *HR* Promethazine 25 MG/ML VIAL IVP PRN ×2 (06:15→23:43)
[2018-11-26 07:37] LABS: BUN/Creatinine Ratio 22 (6-26); Blood Urea Nitrogen 13 mg/dL (6-20); Calcium 9.1 mg/dL (8.6-10.3); Carbon Dioxide 22 mEq/L (23-29); Chloride 110 mEq/L (98-107); Glucose 118 mg/dL (70-105); Osmolality,Calculated 295 (280-300); Potassium 3.8 mEq/L (3.5-5.1); Sodium 142 mEq/L (136-145); eGFR For Non-African Americans > 60 (> 60)
[2018-11-26] MEDS: Ondansetron 4 MG/2 ML VIAL IVP PRN ×2 (08:25→21:30)
[2018-11-26] MEDS: OXYCODONE Oral CONC 10 MG/0.5 ML ORAL.SYG SL PRN ×3 (08:25→22:25)
[2018-11-26] MEDS ORDERED: *HR* Promethazine 25 MG/ML VIAL IVP ONE (10:08)
[2018-11-26] MEDS: Pantoprazole 40 MG VIAL IVP SCH ×2 (10:24→19:00)
[2018-11-26] MEDS: 0.9 % Sodium Chloride 1,000 ML IVC SCH (11:14)
--- NOTE | 2018-11-26 14:18 | Gastroenterology Consult Note ---
<Alfonso Jang - Last Filed: 11/26/18 14:15> Date of Encounter: 11/26/18 Time of Encounter: 09:55 - Assessment and plan (1) Intractable nausea and vomiting Current Visit: Yes Status: Acute Assessment and plan: Continue IV fluids, antiemetics, and PPI. Plan for EGD today with Botox injection. Keep patient NPO for now. Qualifiers: Vomiting type: unspecified Qualified Code(s): R11.2 - Nausea with vomiting, unspecified (2) GERD (gastroesophageal reflux disease) Current Visit: No Status: Chronic Assessment and plan: Continue PPI. Patient educated regarding lifestyle modifications including: (1) avoidance of foods that may precipitate reflux (eg, coffee, alcohol, chocolate, fatty foods). (2) avoidance of acidic foods that may precipitate heartburn (eg, citrus, carbonated drinks, spicy foods). (3) adoption of behaviors that may reduce esophageal acid exposure (see weight loss, smoking cessation, raising the head of the bed, and avoiding recumbency for 2-3 hours after meals). Qualifiers: Esophagitis presence: with esophagitis Qualified Code(s): K21.0 - Gastro- esophageal reflux disease with esophagitis - Time Spent With Patient Total time spent is greater than 50% in coordination of care (as documented) at patient's floor/unit and/or counseling patient: GI History of Present Illness - Data of Consult Patient: known to practice within the last 3 years Consult date: 11/26/18 Requesting Physician: Paul Peterson - Consult Narrative Reason for consult: N/V History of present illness: Ms. Su is a 53 year old female with PMHx of breast cancer, COPD, CVA, GERD, HTN, presented to the ED from GI office with two day history of intractable nausea and vomiting. She has been unable to tolerate any PO intake, and has been unable to take any anti-emetics. Patient is retching and attempting to speak between retching. Patient called our office 11/12/18 with complaints of abdominal pain rating 8/10 and intractable nausea and retching. She was advised to go to the ED for evaluation. Patient called into the office again on 11/19 with continued pain, nausea, and gaging. She was given a follow up appointment with Dr. Denson and instructed to go to the ED if symptoms persist/worsen. 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 EGD 03/02/2018 Dr. Denson: Reflux esophagitis, prominent gastric folds, esophagus dilated. Colonoscopy 02/07/2016 Dr. Denson: Normal. EGD 02/06/2016 Dr. Denson: Gastritis. Colonoscopy 09/29/2015 Dr. Bell: Internal hemorrhoids. EGD 10/18/2014 normal. NSAIDs: prior history of ibuprofen use Anticoagulation: None Past Med Surg Social Fam HX - Past Medical History Medical history: asthma, cancer, COPD, CVA, fibromyalgia, GERD, hypertension, kidney stones, seizures, other Additional medical history: BREAST CA, PSUEDOSEIZURES Psychiatric history: anxiety, depression - Past Surgical History Surgical History: appendectomy, cancer surgery, cholecystectomy, hysterectomy, other Additional surgical history: knee replacement. esophagus surgery - Social History Smoking Status: Current every day smoker Packs per day: 1.5 Smokeless Tobacco Status: No Alcohol use: none Drug use: prescription drug abuse - Family History Mother Living Status: Still Living Hx Family Cancer: Yes Father Living Status: Hx Family Cardiac Disorders: Yes Hx Family Cancer: Yes - Gastrointestinal Gastrointestinal: Present: as per HPI - Constitutional Constitutional: as per HPI - EENT Eyes: as per HPI Ears: Present: as per HPI Nose, mouth and throat: Present: as per HPI - Cardiovascular Cardiovascular ROS: Present: as per HPI - Respiratory Respiratory IM: Present: as per HPI - Genitourinary Genitourinary: Absent: change in color, Urinary frequency - Neurological ROS Neurological GI: Present: as per HPI - Hematologic/Lymphatic Hematologic/Lymphatic pediatric: Present: as per HPI - Musculoskeletal Musculoskeletal ROS GI: Present: as per HPI - Integumentary Integumentary GI: Present: as per HPI - Psychiatric ROS Psychiatric GI: Present: as per HPI - Endocrine Endocrine IM: Present: as per HPI - Constitutional Vitals: Temp Pulse Resp BP Pulse Ox 98.0 F 67 18 141/89 99 11/26/18 10:44 11/26/18 10:44 11/26/18 10:44 11/26/18 10:44 11/26/18 10:44 General appearance: Present: cooperative, A&O X 3, no acute distress, answers questions appropriately - Head Head exam: Present: atraumatic, normocephalic - Eye Eye exam: Present: normal appearance, sclera anicteric - ENT ENT exam: Present: mucous membranes dry - Neck Neck exam general surgery: Present: normal inspection, trachea midline - Respiratory Respiratory exam: Present: CTAB. Absent: rales, rhonchi - Cardiovascular Cardiovascular exam: Present: RRR, +S1, +S2 - GI/Abdominal GI/Abdominal exam: Present: normal bowel sounds, soft, tenderness (RUQ and epigastric), no peritoneal signs. Absent: distended, firm, guarding - Rectal Rectal exam: Present: deferred - Extremities Exam Extremities exam: Present: warm - Neurological Exam Neurological exam: Present: no focal deficits - Psychiatric Psychiatric exam: Present: normal affect, normal mood - Skin Skin exam: Present: dry, intact, normal color, warm Results - Labs CBC & Chem 7: 11/25/18 16:27 11/26/18 05:49 Labs: Last Result Calcium 9.1 mg/dL (8.6-10.3) 11/26/18 05:49 Troponin I < 0.03 ng/mL (< 0.04) 11/25/18 16:27 Entire Visit Hgb 14.5 g/dL (11.5-15.4) 11/25/18 16:27 Hct 43.4 % (35.3-44.9) 11/25/18 16:27 Total Bilirubin 0.4 mg/dL (0.3-1.0) 11/25/18 16:27 AST 34 Units/L (13-39) 11/25/18 16:27 ALT 47 Units/L (7-52) 11/25/18 16:27 Consult Discharge Plan - Plan Referrals: Zach Disla MD [Primary Care Provider] - 12/04/18 9:15 am () <Ale Denson - Last Filed: 11/26/18 21:47> Date of Encounter: 11/26/18 Time of Encounter: 14:35 - Time Spent With Patient Total time spent is greater than 50% in coordination of care (as documented) at patient's floor/unit and/or counseling patient: GI History of Present Illness - Data of Consult Requesting Physician: Paul Peterson - Consult Narrative History of present illness: Ms. Su is a 53 year old female - Constitutional Vitals: Temp Pulse Resp BP Pulse Ox 98.2 F 74 16 144/72 99 11/26/18 19:20 11/26/18 21:20 11/26/18 21:20 11/26/18 21:20 11/26/18 21:20 Results - Labs CBC & Chem 7: 11/25/18 16:27 11/26/18 05:49 Labs: Last Result Calcium 9.1 mg/dL (8.6-10.3) 11/26/18 05:49 Troponin I < 0.03 ng/mL (< 0.04) 11/25/18 16:27 Entire Visit Hgb 14.5 g/dL (11.5-15.4) 11/25/18 16:27 Hct 43.4 % (35.3-44.9) 11/25/18 16:27 Total Bilirubin 0.4 mg/dL (0.3-1.0) 11/25/18 16:27 AST 34 Units/L (13-39) 11/25/18 16:27 ALT 47 Units/L (7-52) 11/25/18 16:27 - Attending Attestation I have personally performed a face to face evaluation on this patient. I have reviewed and agree with the care plan. History and Exam by me shows: Pt seen. complaining of NV. O/E: Does has dry retching. A: Pt with HX oF Papa fundoplication now with intracatble NV. Barium swallow and HR mano with Gastric outlet obs but no help with dilation. Can has gastroparesis Rec: EGD with poss botox of GE junction. Symtomatic treatment
[2018-11-26] MEDS ORDERED: Tetracaine/Benzocaine/Butamben 1 SPRAY AEROSOL MM ONE ×2 (16:54→17:42)
[2018-11-26] MEDS ORDERED: Simethicone 40 MG/0.6 ML MLS IR ONE ×2 (16:54→17:42)
[2018-11-26] MEDS ORDERED: 0.9 % Sodium Chloride 500 ML IVC SCH (17:00)
[2018-11-26] MEDS ORDERED: *HR* Midazolam HCl 5 MG/5 ML VIAL IVP ONE (17:02)
[2018-11-26] MEDS ORDERED: *HR* FentaNYL (PF) 100 MCG/2 ML VIAL ONE (17:02)
--- NOTE | 2018-11-26 17:24 | Internal Med Progress Note ---
Hospitalist Progress Note - Encounter Date of Encounter: 11/26/18 Time of Encounter: 10:00 - Subjective Interval History: Patient was seen and examined at bedside currently continues to experience dry heaves complains of abdominal pain and requesting pain medication. Patient will undergo EGD with GI today verbalized understanding. - Exam Vitals: Temp Pulse Resp BP Pulse Ox 98.0 F 69 18 184/79 98 11/26/18 16:53 11/26/18 16:59 11/26/18 16:59 11/26/18 16:59 11/26/18 16:59 Exam: .General: Obese white female lying in bed, appears fatigued Skin: Warm and supple. HEENT: Moist mucous membranes. No conjunctivae pallor. Neck: No lymphadenopathy. No JVD. No carotid bruits. No palpable thyroid. Chest: Normal thoracic expansion. Normal breath sounds. Clear to auscultation. Heart: Normal S1 & S2; rhythmic. No rubs or murmurs. Abdomen: Non-distended, soft and mild tenderness right quadrant Extremities: No clubbing, cyanosis or edema. No calf tenderness. Normal distal pulses. Neurological: Awake, alert and oriented to person, place and time. No focal deficits. Psych: Affect appropriate. - Assessment and Plan (1) Intractable nausea and vomiting Current Visit: Yes Status: Acute Assessment and Plan: Patient has been experiencing 2 day history of intractable nausea and vomiting. Unable to tolerate any oral intake or medications. 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 11/26 Continue with antibiotics and IV fluids oxycodone for pain Nothing by mouth Seen by GI patient will undergo EGD today (2) DVT prophylaxis Current Visit: No Status: Acute Assessment and Plan: Heparin subcutaneous (3) COPD (chronic obstructive pulmonary disease) Current Visit: No Status: Chronic Assessment and Plan: Currently stable does not appear to be exacerbation Patient will require oxygen at night Broncho- dilators as needed 11/26 Stable at this time continue to monitor (4) GERD (gastroesophageal reflux disease) Current Visit: No Status: Chronic Assessment and Plan: Protonix IV (5) HTN (hypertension) Current Visit: No Status: Chronic Assessment and Plan: We will continue with home medications once verified (6) History of pseudoseizure Current Visit: Yes Status: Acute Assessment and Plan: Patient states she has a history of pseudoseizures-seizure was approximately a week ago continue with home medications once verified and seizure precautions 11/26 Seizure activity noted continue with seizure precautions resume medications once verified (7) Coronary artery spasm Current Visit: Yes Status: Acute Assessment and Plan: Patient has a history of coronary artery spasm according to cardiology note 11/24/2018 [facility]-last cardiac catheterization showed nonobstructive CAD 08/06/2000 1630% stenosis in the proximal LAD 20% stenosis in the proximal circumflex 20% stenosis in proximal RCA. There is a 15% stenosis in the mid RCA phonological nuclear stress test 11/17/18 no ischemia or infarct on perfusion study continue with Imdur patient continues to smoke encouraged to stop smoking Continue with all medications Toprol and Imdur once patient is able tolerate oral intake 11/26 Troponin was negative EKG with no ischemic changes Continue with home medication (8) Chest pain Current Visit: Yes Status: Acute Assessment and Plan: Most likely secondary to retching. Will check EKG-last cardiac catheterization showed nonobstructive CAD 08/06/2000 1630% stenosis in the proximal LAD 20% stenosis in the proximal circumflex 20% stenosis in proximal RCA. There is a 15% stenosis in the mid RCA phonological nuclear stress test 11/17/18 no ischemia or infarct on perfusion study We will obtain troponin Nitroglycerin as needed 11/26 EKG with no ischemic changes troponin negative continue cardiac monitoring Nitroglycerin as needed - Time Spent with Patient Total time spent is greater than 50% in coordination of care (as documented) at patient's floor/unit and/or counseling patient: Internal Medicine: Result - Labs CBC & Chem 7: 11/25/18 16:27 11/26/18 05:49 Labs: BMP 11/25/18 11/26/18 16:27 05:49 Sodium 139 142 Potassium 3.6 3.8 Chloride 107 110 H Carbon Dioxide 20 L 22 L BUN 11 13 Creatinine 0.63 0.59 L Glucose 157 H 118 H Calcium 9.7 9.1 Cardiac Enzymes 11/25/18 Range/Units 16:27 Troponin I < 0.03 (< 0.04) ng/mL Liver Function 11/25/18 Range/Units 16:27 Total Bilirubin 0.4 (0.3-1.0) mg/dL AST 34 (13-39) Units/L ALT 47 (7-52) Units/L Alkaline Phosphatase 125 H (34-104) Units/L Albumin 4.7 (3.5-5.7) g/dL Consult Discharge Plan - Plan Referrals: Zach Disla MD [Primary Care Provider] - 12/04/18 9:15 am () (1) Intractable nausea and vomiting Qualifiers: Vomiting type: unspecified Qualified Code(s): R11.2 - Nausea with vomiting, unspecified (3) COPD (chronic obstructive pulmonary disease) Qualifiers: COPD type: unspecified COPD Qualified Code(s): J44.9 - Chronic obstructive pulmonary disease, unspecified (4) GERD (gastroesophageal reflux disease) Qualifiers: Esophagitis presence: with esophagitis Qualified Code(s): K21.0 - Gastro- esophageal reflux disease with esophagitis (5) HTN (hypertension) Qualifiers: Hypertension type: essential hypertension Qualified Code(s): I10 - Essential (primary) hypertension (8) Chest pain Qualifiers: Chest pain type: unspecified Qualified Code(s): R07.9 - Chest pain, unspecified
[2018-11-26] MEDS ORDERED: *HR* FentaNYL (PF) 100 MCG/2 ML VIAL IVP ONE (17:42)
--- NOTE | 2018-11-26 17:44 | Pre-Sedation Evaluation ---
Pre-sedation evaluation - Pre-sedation checklist Date of procedure: 11/26/18 Procedure: EGD Recent Vitals: Last Vital Signs Temp 98.0 F 11/26/18 16:53 Pulse 73 11/26/18 17:43 Resp 18 11/26/18 17:43 BP 172/88 11/26/18 17:43 Pulse Ox 98 11/26/18 17:43 H&P (including ROS) documented in medical record: Yes Previous reaction to sedatives/anesthetics: No Dietary Status: NPO after Midnight Dentition: No loose teeth or bridges ASA Classification *see protocol: CLASS III-Severe systemic disease Plan of Care: Pt appropriate candidate for procedure/moderate/conscious sedation, Risks/benefits of procedure/sedation discussed w/ patient/family
[2018-11-26] MEDS: *HR* Midazolam HCl 5 MG/5 ML VIAL IVP ONE ×2 (17:48→17:57)
[2018-11-26] MEDS ORDERED: diazePAM 10 MG/2 ML SYRINGE IVP ONE (23:53)
[2018-11-27] MEDS: OXYCODONE Oral CONC 10 MG/0.5 ML ORAL.SYG SL PRN (03:18)
[2018-11-27] MEDS: *HR* Promethazine 25 MG/ML VIAL IVP PRN ×2 (04:31→10:27)
[2018-11-27] MEDS: Pantoprazole 40 MG VIAL IVP SCH (05:21)
[2018-11-27 09:45] LABS: Basophils % 0.5 %; Eosinophils # 0.1 K/mcL (0.0-0.6); Eosinophils % 1.4 %; Hematocrit 40.5 % (35.3-44.9); Hemoglobin 13.4 g/dL (11.5-15.4); Immature Granulocytes % 0.4 % (0-4); Lymphocytes # 1.7 K/mcL (0.6-4.6); Lymphocytes % 30.2 %; Mean Corpuscular HGB Conc 33.1 g/dL (31.6-35.5); Mean Corpuscular Hemoglobin 29.8 pg (28.0-33.3); Mean Corpuscular Volume 90.2 fL (83.0-100.0); Mean Platelet Volume 9.8 fL (9.4-12.4); Monocytes # 0.4 K/mcL (0.0-1.3); Monocytes % 6.5 %; Neutrophils # 3.5 K/mcL (1.6-8.9); Platelet Count 234 K/mcL (140-400); Red Blood Count 4.49 M/mcL (3.82-4.97); Red Cell Distribution Width 12.7 % (11.5-14.5)
[2018-11-27 10:00] LABS: BUN/Creatinine Ratio 20 (6-26); Blood Urea Nitrogen 12 mg/dL (6-20); Calcium 9.5 mg/dL (8.6-10.3); Carbon Dioxide 22 mEq/L (23-29); Chloride 107 mEq/L (98-107); Glucose 162 mg/dL (70-105); Osmolality,Calculated 291 (280-300); Potassium 3.7 mEq/L (3.5-5.1); Sodium 139 mEq/L (136-145); eGFR For Non-African Americans > 60 (> 60)
[2018-11-27] MEDS ORDERED: *HR* LORazepam 2 MG/ML VIAL ONE ×2 (10:55)
[2018-11-27] MEDS ORDERED: *HR* LORazepam 1 MG TABLET PO ONE (11:26)
[2018-11-27] MEDS ORDERED: Benzonatate 100 MG CAPSULE PO PRN (12:57)
[2018-11-27] MEDS ORDERED: Acetaminophen/Butalbital/CaffeineTABLET PO PRN (12:57)
[2018-11-27] MEDS ORDERED: Nitroglycerin 0.4 MG TAB.SUBL SL PRN (12:57)
[2018-11-27] MEDS ORDERED: Ammonium Lactate 30 APPL/225 GM BOTTLE TP SCH (13:30)
[2018-11-27] MEDS ORDERED: Loratadine 10 MG TABLET PO SCH (13:30)
[2018-11-27] MEDS ORDERED: Ondansetron ODT 4 MG TAB.RAPDIS SL PRN (13:48)
[2018-11-27] MEDS ORDERED: D5% in Water 1,000 ML IVC PRN (15:37)
[2018-11-27] MEDS ORDERED: Dextrose Gel 15 GM/37.5 ML TUBE PO PRN ×2 (15:37)
[2018-11-27] MEDS ORDERED: *HR* Dextrose 50 % in Water (Syg) 50 ML SYRINGE IVP PRN (15:37)
[2018-11-27 15:54] VITALS: BP 134/92
--- NOTE | 2018-11-27 16:20 | Discharge Summary ---
- NOTES TO OUTPATIENT PROVIDER Notes to Outpatient Provider: Presented with intractable nausea and vomiting was seen by GI-underwent EGD had normal esophagus normal stomach normal to wanted him gastroesophageal junction successfully injected with botulinum toxin she would be to follow-up with GI as outpatient. Patient home medications will need to be reviewed-polypharmacy with multiple orders for same medications from different physician Orders not resulted at time of discharge: Pending orders 11/26/18 17:59 Surgical Pathology [PTH] Routine Date of Encounter: 11/27/18 Time of Encounter: 16:17 - Discharge Diagnosis (1) Intractable nausea and vomiting Priority: Primary Status: Acute Qualifiers: Vomiting type: unspecified Qualified Code(s): R11.2 - Nausea with vomiting, unspecified (2) COPD (chronic obstructive pulmonary disease) Priority: Secondary Status: Chronic Qualifiers: COPD type: unspecified COPD Qualified Code(s): J44.9 - Chronic obstructive pulmonary disease, unspecified (3) GERD (gastroesophageal reflux disease) Priority: Secondary Status: Chronic Qualifiers: Esophagitis presence: with esophagitis Qualified Code(s): K21.0 - Gastro- esophageal reflux disease with esophagitis (4) HTN (hypertension) Priority: Secondary Status: Chronic Qualifiers: Hypertension type: essential hypertension Qualified Code(s): I10 - Essential (primary) hypertension (5) History of pseudoseizure Priority: Secondary Status: Acute (6) Coronary artery spasm Priority: Secondary Status: Acute (7) Chest pain Priority: Secondary Status: Acute Qualifiers: Chest pain type: unspecified Qualified Code(s): R07.9 - Chest pain, unspecified Hospital course: Ms. Su is a 53 year old female past medical history of breast cancer COPD CVA GERD hypertension fibromyalgia pseudoseizures anxiety depression GERD history of Papa fundoplication presented to GI office after experiencing today history of intractable nausea and vomiting. She is unable to tolerate any oral intake and unable to take any medication. She was advised to go to the [place] department for evaluation she continued to experience retching abdominal pain nausea. Abdominal pain mostly right upper quadrant lab work was unremarkable-she was seen by GI and underwent EGD with Botox a GE junction. Post procedure patient was tolerating clear liquids- after being assessed she began to retch. Then a rapid response was called dt expereince seizure like activity- during the episode- the patient displayed rhythmic motion of upper extremities and shaking her head back and forth patient calling out. "Please make this stop" eyes were open and closing at times fluttering. She did respond when spoken to and attempted to follow commands. This episode lasted approximately 3 minutes. She was given 1 mg of oral Ativan. No more seizure like activity noted. Dr Yanes and myself discussed discharge with the patient who is in agreement of going home at this time. Patient was advised to follow-up with her primary care provider as well as with GI. Also discussed with the patient medication list and the fact that she has multiple medications from multiple providers. Advised the patient to follow with 1 primary care provider and to ensure that any consults are in communication with her primary care provider. Patient verbalized understanding. Currently patient is not retching tolerating oral intake does not display any seizure-like activity and i s hemodynamically stable. She will be discharged home with home health services - Time Spent with Patient Total time spent providing and/or coordinating discharge services: - Discharge Medications Home Medications: Acetaminophen/Butalbital/Caffe [Fioricet] 1 each PO TID PRN 11/26/18 [History] Ammonium Lactate [Lac-Hydrin Five] 1 appl TP DAILY 11/26/18 [History] Benzonatate [Tessalon] 100 mg PO TID PRN 11/26/18 [History] Bifidobacterium Infantis [Align] 4 mg PO DAILY 11/26/18 [History] Calcium Carbonate/Vitamin D3 [Calcium 500 + Vit D Caplet] 1 each PO DAILY 11/26/18 [History] Cetirizine HCl [24Hour Allergy] 10 mg PO DAILY 11/26/18 [History] Cyclosporine [Restasis] 1 each OP BID 11/26/18 [History] Dicyclomine [Bentyl] 10 mg PO QID PRN 11/26/18 [History] Docusate Sodium [Dulcolax Stool Softener] 200 mg PO TID 11/26/18 [History] Ergocalciferol (VITAMIN D2) [Drisdol (50,000 Unit)] 50,000 unit PO QWEEK 11/26/18 [History] Fluticasone Propionate Nasal [Flonase] 50 mcg NS DAILY 11/26/18 [History] Fluticasone/Vilanterol [Breo Ellipta 100-25 Mcg INH] 1 each IH DAILY 11/26/18 [History] Furosemide [Lasix] 20 - 40 mg PO DAILY PRN 11/26/18 [History] Hydrocortisone 2.5% CREAM [Cortaid] 1 appl TP DAILY PRN 11/26/18 [History] Isosorbide MONOnitrate (24 HR) [Imdur] 90 mg PO DAILY 11/26/18 [History] Levalbuterol Tartrate [Xopenex Hfa] 4 puff IH Q6H PRN 11/26/18 [History] Melatonin 10 mg PO HS PRN 11/26/18 [History] Metoprolol XL (24 HR) Succ [Toprol Xl] 50 mg PO DAILY 11/26/18 [History] Montelukast [Singulair] 10 mg PO HS 11/26/18 [History] Multivit-Min/Iron/Folic Acid/K [Adults Multivitamin Caplet] 1 each PO DAILY 11/26/18 [History] Nitroglycerin [Nitrostat] 0.4 mg SL Q5MIN PRN 11/26/18 [History] Nystatin POWDER [Nystop] 1 appl TP TID 11/26/18 [History] Ondansetron ODT [Zofran ODT] 4 mg SL Q8HR PRN 11/26/18 [History] Pantoprazole Sodium [Protonix] 40 mg PO DAILY 11/26/18 [History] Prazosin [Minipress] 1 - 2 mg PO HS 11/26/18 [History] Rosuvastatin [Crestor] 20 mg PO HS 11/26/18 [History] Sucralfate [Carafate] 1 gm PO TID 11/26/18 [History] Tiotropium [Spiriva] 18 mcg IH 0700 11/26/18 [History] Tramadol HCl [Ultram] 50 - 100 mg PO TID 11/26/18 [History] Venlafaxine HCl [Venlafaxine HCl ER] 150 mg PO BID 11/26/18 [History] clonazePAM [Clonazepam] 0.5 mg PO DAILY 11/26/18 [History] lamoTRIgine [Lamictal] 100 mg PO BID 11/26/18 [History] raNITIdine HCl [Ranitidine HCl] 300 mg PO HS 11/26/18 [History] traZODone [TraZODone] 300 mg PO HS 11/26/18 [History] Cholecalciferol (D-3) [Vitamin D] 1,000 unit PO DAILY tablet 11/27/18 [Rx] Allergies/Adverse Reactions: Allergy/AdvReac Type Severity Reaction Status Date / Time fluconazole [From Diflucan] Allergy Seizure Verified 06/17/18 11:11 fluoxetine [From Prozac] Allergy Difficulty Verified 06/17/18 11:11 Breathing Sulfa (Sulfonamide Allergy Rash Verified 06/17/18 11:11 Antibiotics) sumatriptan [From Imitrex] Allergy Rash Verified 06/17/18 11:11 Date of admission: 11/25/18 18:27 Primary care physician: Zach Disla MD Consults: 11/25/18 18:19 Consult to Gastroenterology [CONS] Routine Consulting Provider: Gastroenterology [facility] Reason for Consult: Nausea vomiting Time Notified: 18:20 Call Completed: No 11/25/18 21:20 Consult to Obstetrician Gynecologist [CONS] Routine Reason for SW Consult: PT HAS HOME HEALTH THROUGH [facility] . Discharging clinician: Mihaela Rosario Anticipated date of discharge: 11/27/18 - Constitutional Vitals: Temp Pulse Resp BP Pulse Ox 98.0 F 93 17 134/92 96 11/27/18 15:50 11/27/18 15:50 11/27/18 15:50 11/27/18 15:50 11/27/18 15:50 General appearance: Present: A&O X 3 Exam: . - Head Head exam: Present: atraumatic, normocephalic - Eye Eye exam: Present: PERRL, conjuntiva pink, sclera anicteric Pupils: Present: PERRL - Neck Neck exam general surgery: Present: supple, trachea midline. Absent: lymphadenopathy - Respiratory Respiratory exam: Present: CTAB. Absent: accessory muscle use, rales, rhonchi, wheezes - Cardiovascular Cardiovascular exam: Present: RRR, +S1, +S2. Absent: diastolic murmur, gallop, rubs, systolic murmur - GI/Abdominal GI/Abdominal exam: Present: normal bowel sounds, soft, no peritoneal signs. Absent: distended, tenderness - Extremities Exam Extremities exam: Present: warm, radial pulses palpable and symmetrical. Absent: calf tenderness, cyanotic, pedal edema - Neurological Exam Neurological exam: Present: CN II-XII intact, oriented X3, no focal deficits. Absent: pronater drift, facial droop, speech deficit - Skin Skin exam: Present: dry, intact - Patient Status Disposition: Home Health Service Condition: Good Functional capacity at discharge: uses cane/walker Overall status at discharge: patient is back to baseline - Discharge Instructions Instructions: Chest Pain (DC) Follow Up With: Zach Disla MD [Primary Care Provider] - 12/04/18 9:15 am () Ale Denson MD [Partnered Physician] - (Follow up appointment has been requested. Office will call with date and time of appointment. ) - Diet and Activity Activity: increase activity as tolerated Diet: advance to your usual diet
[2018-11-27] MEDS ORDERED: Insulin LISPRO 300 UNITS/3 ML VIAL SQ SCH ×2 (16:30→21:00)
--- NOTE | 2018-11-27 16:55 | Event Note ---
Date of Encounter: 11/27/18 Time of Encounter: 11:00 Response was called by nursing staff upon entry of room patient was shaking and thrashing arms and legs. Movement of arms and legs appeared to be rhythmic she also was raising her body up out of the bed eyes were rolling around in her head as well as fluttering her eyelids. Patient does have a history of pseudoseizures, patient did call out stating "please make this stop". Patient did not have any IV access during the episode Dr Yanes was at bedside-he did speak with the patient who did converse back and answered questions. Advised patient to wake up and that we would give her some oral medications. Patient did stop shaking however she continued to flutter her eyelids. Ativan 1 mg by mouth was ordered. Patient did tolerate medication and no other seizure activity was noted
--- NOTE | 2018-11-27 16:57 | Physician Discharge Referral ---
Home Health/Hosp Referral Info Transfer to: Home Health Attending Provider: Ernst Provider in Charge Post Discharge: PCP - Diagnosis (1) Intractable nausea and vomiting Priority: Primary Status: Acute (2) COPD (chronic obstructive pulmonary disease) Priority: Secondary Status: Chronic (3) GERD (gastroesophageal reflux disease) Priority: Secondary Status: Chronic (4) HTN (hypertension) Priority: Secondary Status: Chronic (5) History of pseudoseizure Priority: Secondary Status: Acute (6) Coronary artery spasm Priority: Secondary Status: Acute (7) Chest pain Priority: Secondary Status: Acute - Respiratory Orders Smoking Cessation: Smoking cessation has been advised. For more information, call the [place] Tobacco Quit Line at 9-042-RWHZ-NOW. - Diet/Nutrition Diet/Nutrition Orders: Regular - Activity Activity Orders: Up ad tristan - Services Needed Following services are medically necessary services: Nursing, Home Health Aide - Transfer Medications Home Medications: Acetaminophen/Butalbital/Caffe [Fioricet] 1 each PO TID PRN 11/26/18 [History] Ammonium Lactate [Lac-Hydrin Five] 1 appl TP DAILY 11/26/18 [History] Benzonatate [Tessalon] 100 mg PO TID PRN 11/26/18 [History] Bifidobacterium Infantis [Align] 4 mg PO DAILY 11/26/18 [History] Calcium Carbonate/Vitamin D3 [Calcium 500 + Vit D Caplet] 1 each PO DAILY 11/26/18 [History] Cetirizine HCl [24Hour Allergy] 10 mg PO DAILY 11/26/18 [History] Cyclosporine [Restasis] 1 each OP BID 11/26/18 [History] Dicyclomine [Bentyl] 10 mg PO QID PRN 11/26/18 [History] Docusate Sodium [Dulcolax Stool Softener] 200 mg PO TID 11/26/18 [History] Ergocalciferol (VITAMIN D2) [Drisdol (50,000 Unit)] 50,000 unit PO QWEEK 11/26/18 [History] Fluticasone Propionate Nasal [Flonase] 50 mcg NS DAILY 11/26/18 [History] Fluticasone/Vilanterol [Breo Ellipta 100-25 Mcg INH] 1 each IH DAILY 11/26/18 [History] Furosemide [Lasix] 20 - 40 mg PO DAILY PRN 11/26/18 [History] Hydrocortisone 2.5% CREAM [Cortaid] 1 appl TP DAILY PRN 11/26/18 [History] Isosorbide MONOnitrate (24 HR) [Imdur] 90 mg PO DAILY 11/26/18 [History] Levalbuterol Tartrate [Xopenex Hfa] 4 puff IH Q6H PRN 11/26/18 [History] Melatonin 10 mg PO HS PRN 11/26/18 [History] Metoprolol XL (24 HR) Succ [Toprol Xl] 50 mg PO DAILY 11/26/18 [History] Montelukast [Singulair] 10 mg PO HS 11/26/18 [History] Multivit-Min/Iron/Folic Acid/K [Adults Multivitamin Caplet] 1 each PO DAILY 11/26/18 [History] Nitroglycerin [Nitrostat] 0.4 mg SL Q5MIN PRN 11/26/18 [History] Nystatin POWDER [Nystop] 1 appl TP TID 11/26/18 [History] Ondansetron ODT [Zofran ODT] 4 mg SL Q8HR PRN 11/26/18 [History] Pantoprazole Sodium [Protonix] 40 mg PO DAILY 11/26/18 [History] Prazosin [Minipress] 1 - 2 mg PO HS 11/26/18 [History] Rosuvastatin [Crestor] 20 mg PO HS 11/26/18 [History] Sucralfate [Carafate] 1 gm PO TID 11/26/18 [History] Tiotropium [Spiriva] 18 mcg IH 0700 11/26/18 [History] Tramadol HCl [Ultram] 50 - 100 mg PO TID 11/26/18 [History] Venlafaxine HCl [Venlafaxine HCl ER] 150 mg PO BID 11/26/18 [History] clonazePAM [Clonazepam] 0.5 mg PO DAILY 11/26/18 [History] lamoTRIgine [Lamictal] 100 mg PO BID 11/26/18 [History] raNITIdine HCl [Ranitidine HCl] 300 mg PO HS 11/26/18 [History] traZODone [TraZODone] 300 mg PO HS 11/26/18 [History] Cholecalciferol (D-3) [Vitamin D] 1,000 unit PO DAILY tablet 11/27/18 [Rx] Allergies/Adverse Reactions: Allergy/AdvReac Type Severity Reaction Status Date / Time fluconazole [From Diflucan] Allergy Seizure Verified 06/17/18 11:11 fluoxetine [From Prozac] Allergy Difficulty Verified 06/17/18 11:11 Breathing Sulfa (Sulfonamide Allergy Rash Verified 06/17/18 11:11 Antibiotics) sumatriptan [From Imitrex] Allergy Rash Verified 06/17/18 11:11 Certification: Further, I certify that my clinical findings support that this patient is homebound (i.e. absences from home require considerable and taxing effort and are for medical reasons or shinto services or infrequently or short duration when for other reasons) because: Homebound Reason: Severity of cardiac or pulmonary status limits activity tolerance Attestation: My signature below is to certify that this patient is under my care and that I, or nurse practitioner, or a physician's fiscal assistant working with me, has a [id number] encounter with this patient.
[2018-11-27] MEDS ORDERED: lamoTRIgine 100 MG TABLET PO SCH (21:00)
[2018-11-27] MEDS ORDERED: Cyclosporine [Restasis] 1 EACH OP SCH (21:00)
[2018-11-27] MEDS ORDERED: Venlafaxine XR (24 HR) 150 MG CAP.ER.24H PO SCH (21:00)
[2018-11-28] MEDS ORDERED: Tiotropium 18 MCG inhalation IH SCH (07:00)
[2018-11-28] MEDS ORDERED: Multivit/Ca/Min/Fe/FA 1 TAB TABLET PO SCH (09:00)
[2018-11-28] MEDS ORDERED: Lactobacillus 1 EACH CAP.SPRINK PO SCH (09:00)
[2018-11-28] MEDS ORDERED: Isosorbide MONOnitrate (24 HR) 30 MG TAB.ER.24H PO SCH (09:00)
[2018-11-28] MEDS ORDERED: clonazePAM 0.5 MG TABLET PO SCH (09:00)
[2018-11-28] MEDS ORDERED: Metoprolol XL (24 HR) Succ 50 MG TAB.ER.24H PO SCH (09:00)
[2018-11-28] MEDS ORDERED: Fluticasone Propionate Nasal 50 MCG/SPRAY BOTTLE NS SCH (09:00)
[2018-11-28] MEDS ORDERED: Cholecalciferol (D-3) 1,000 UNIT TABLET PO SCH (09:00)
[2018-11-28] MEDS ORDERED: Budesonide/Formoterol 160/4.5 1 PUFF INH IH SCH (10:00)
--- NOTE | 2018-11-28 10:18 | Electrocardiograph Report ---
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
== END 2018-11-27 18:00 | disposition home health service (06) ==
LOC: 3BNU 15:48 → EMEROOARM 15:48 → 3BNU 19:48
PROVIDERS: ADMIT Student in an Organized Health Care Education/Training Program; ATTEND Student in an Organized Health Care Education/Training Program
PROC: ENDOEBX (2018-11-26 18:00)

== ENCOUNTER 2019-03-16 10:51 | Inpatient (IN) ==
--- NOTE | 2019-03-16 10:57 | Emergency Department Note ---
Disposition Clinical Impression: Convulsions, Transient cerebral ischemia, History of pseudoseizure Disposition: Admitted As Inpatient Time of Disposition: 13:00 General Adult HPI - General Stated complaint: stroke alert Time Seen by Provider: 03/16/19 10:55 - History of Present Illness HPI Narrative: 53-year-old female with a history of CVA reports emergency department via EMS. She was active and alert about an hour prior to EMS being notified. EMS provide rs note that the patient has left upper and left lower extremity weakness and is gazing to the right and is been nonverbal. There is no history of fall. The patient does have a history of seizure disorder. The patient is unable to give a clear history on arrival. Blood glucose was checked in the 160s. The patient was brought to the emergency department for further evaluation. She was at her home when they picked her up. - Related Data Home Medications Medication Instructions Recorded Confirmed Acetaminophen/Butalbital/Caffe 1 each PO TID PRN 11/26/18 11/26/18 [Fioricet] Ammonium Lactate [Lac-Hydrin Five] 1 appl TP DAILY 11/26/18 11/26/18 Benzonatate [Tessalon] 100 mg PO TID PRN 11/26/18 11/26/18 Bifidobacterium Infantis [Align] 4 mg PO DAILY 11/26/18 11/26/18 Calcium Carbonate/Vitamin D3 1 each PO DAILY 11/26/18 11/26/18 [Calcium 500 + Vit D Caplet] Cetirizine HCl [24Hour Allergy] 10 mg PO DAILY 11/26/18 11/26/18 Cyclosporine [Restasis] 1 each OP BID 11/26/18 11/26/18 Dicyclomine [Bentyl] 10 mg PO QID PRN 11/26/18 11/26/18 Docusate Sodium [Dulcolax Stool 200 mg PO TID 11/26/18 11/26/18 Softener] Ergocalciferol (VITAMIN D2) 50,000 unit PO QWEEK 11/26/18 11/26/18 [Drisdol (50,000 Unit)] Fluticasone Propionate Nasal 50 mcg NS DAILY 11/26/18 11/26/18 [Flonase] Fluticasone/Vilanterol [Breo 1 each IH DAILY 11/26/18 11/26/18 Ellipta 100-25 Mcg INH] Furosemide [Lasix] 20 - 40 mg PO DAILY PRN 11/26/18 11/26/18 Hydrocortisone 2.5% CREAM [Cortaid] 1 appl TP DAILY PRN 11/26/18 11/26/18 Isosorbide MONOnitrate (24 HR) 90 mg PO DAILY 11/26/18 11/26/18 [Imdur] Levalbuterol Tartrate [Xopenex Hfa] 4 puff IH Q6H PRN 11/26/18 11/26/18 Melatonin 10 mg PO HS PRN 11/26/18 11/26/18 Metoprolol XL (24 HR) Succ [Toprol 50 mg PO DAILY 11/26/18 11/26/18 Xl] Montelukast [Singulair] 10 mg PO HS 11/26/18 11/26/18 Multivit-Min/Iron/Folic Acid/K 1 each PO DAILY 11/26/18 11/26/18 [Adults Multivitamin Caplet] Nitroglycerin [Nitrostat] 0.4 mg SL Q5MIN PRN 11/26/18 11/26/18 Nystatin POWDER [Nystop] 1 appl TP TID 11/26/18 11/26/18 Ondansetron ODT [Zofran ODT] 4 mg SL Q8HR PRN 11/26/18 11/26/18 Pantoprazole Sodium [Protonix] 40 mg PO DAILY 11/26/18 11/26/18 Prazosin [Minipress] 1 - 2 mg PO HS 11/26/18 11/26/18 Rosuvastatin [Crestor] 20 mg PO HS 11/26/18 11/26/18 Sucralfate [Carafate] 1 gm PO TID 11/26/18 11/26/18 Tiotropium [Spiriva] 18 mcg IH 0700 11/26/18 11/26/18 Tramadol HCl [Ultram] 50 - 100 mg PO TID 11/26/18 11/26/18 Venlafaxine HCl [Venlafaxine HCl 150 mg PO BID 11/26/18 11/26/18 ER] clonazePAM [Clonazepam] 0.5 mg PO DAILY 11/26/18 11/26/18 lamoTRIgine [Lamictal] 100 mg PO BID 11/26/18 11/26/18 raNITIdine HCl [Ranitidine HCl] 300 mg PO HS 11/26/18 11/26/18 traZODone [TraZODone] 300 mg PO HS 11/26/18 11/26/18 Previous Rx's Medication Instructions Recorded Cholecalciferol (D-3) [Vitamin D] 1,000 unit PO DAILY tablet 11/27/18 Multivitamin [One Daily 1 each PO DAILY #90 tablet 12/30/18 Multivitamin] Allergies Allergy/AdvReac Type Severity Reaction Status Date / Time fluconazole [From Diflucan] Allergy Seizure Verified 06/17/18 11:11 fluoxetine [From Prozac] Allergy Difficulty Verified 06/17/18 11:11 Breathing Sulfa (Sulfonamide Allergy Rash Verified 06/17/18 11:11 Antibiotics) sumatriptan [From Imitrex] Allergy Rash Verified 06/17/18 11:11 Limitations: ROS unobtainable due to patients medical condition Past Medical History - Past Medical History Medical history: Reports: asthma, cancer, COPD, CVA, fibromyalgia, GERD, hypertension, kidney stones, seizures, other Surgical history: Reports: appendectomy, cancer surgery, cholecystectomy, hysterectomy, other Psychiatric history: Reports: anxiety, depression ALARM ADJUSTER history: Reports: no ALARM ADJUSTER history - Social History Smoking Status: Current every day smoker Smokeless Tobacco Status: No Alcohol use: Reports: none Drug use: Reports: prescription drug abuse Physical Exam - General Limitations: other (The patient is unable to vocalize but responds to sternal rub and follows the most basic commands appropriately) General appearance: alert - Head Head exam: atraumatic, normocephalic, normal inspection - Eye Eye exam: Present: normal appearance, PERRL, EOMI, other (Gazing to the right) - ENT ENT exam: normal exam, normal oropharynx, mucous membranes moist, normal external ear exam - Neck Neck exam: Present: normal inspection, full ROM, trachea midline - Chest Chest inspection: Present: normal inspection, symmetric chest wall rise - Respiratory Respiratory exam: Present: normal lung sounds bilaterally. Absent: respiratory distress, prolonged expiratory phase - Cardiovascular Cardiovascular exam: Present: regular rate, normal rhythm, normal heart sounds - Abdominal Exam Abdominal exam: Present: soft, Non-Tender, normal bowel sounds. Absent: tenderness, distention, guarding, rebound, rigidity - Extremities Exam Extremities exam: Present: normal inspection, full ROM, normal capillary refill. Absent: tenderness, pedal edema, joint swelling - Expanded Lower Extremity Exam Neurovascular/Tendon exam: Present: normal capillary refill. Absent: motor deficit, sensory deficit, tendon deficit, extremity cold to touch, pallor - Back Exam Back exam: Present: normal inspection, full ROM. Absent: tenderness, CVA tenderness (R), CVA tenderness (L), vertebral tenderness - Neurological Exam Neurological exam: Present: alert, motor sensory deficit. Absent: CN II-XII intact (The patient is gazing to the right, left upper and left lower extremity weakness noted. 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 Today the patient developed left upper extremity weakness about an hour prior to arrival. A stroke alert was called based on initial history of left upper and left lower extremity weakness 1 hour prior to arrival. Dr. Ledezma, stroke neurologist evaluated the patient and felt that she was out of the window for TPA. She recommended hospitalization for further workup. The patient has no evidence of intracerebral hemorrhage on CT scan is called by radiologist. Vital Signs Temperature 98.6 F 03/16/19 10:51 Pulse Rate 103 03/16/19 10:51 Respiratory Rate 16 03/16/19 10:51 Blood Pressure 140/90 03/16/19 10:51 O2 Sat by Pulse Oximetry 95 03/16/19 10:51 Temperature 98.6 F 03/16/19 10:51 Pulse Rate 93 03/16/19 12:47 Respiratory Rate 16 03/16/19 12:47 Blood Pressure 103/75 03/16/19 12:47 O2 Sat by Pulse Oximetry 95 03/16/19 12:47 Oxygen Delivery Oxygen Delivery Room Air Medical Decision Making - MDM Narrative Medical decision making narrative: Initial concerns were for acute left upper and left lower extremity weakness as per EMS and initial history, about an hour prior to arrival the patient had left upper and left lower extremity weakness. On review, the patient says reports she had left lower extremity weakness beginning yesterday. Stroke neurologist recommends no TPA, out of the window for timeframe. Recommends hospitalization for workup. The patient is established with Dr. Ledezma in neurology at [facility]. She has a history of seizures and/or pseudoseizures as well as prior cerebrovascular disease, multiple sclerosis is also listed as one of her diagnosis. In the emergency department the patient's neurologic symptoms seem to defervesce. She was much more alert asked for pain medication and was able to move her left upper and left lower extremity relatively normally. Based on the patient's negative CT head, stroke neurologist opinion that the patient is out of the window for TPA, and a history of seizures and/or pseudoseizures with significant neurologic improvement, and prior establishment with neurology at this institution, I thought it would be appropriate to admit the patient to this facility. I discussed the case with the hospitalist on-call who has accepted the patient to their care. I also consult with neurology Dr. Gonzalez via [facility]. They will act as consultants. Ativan and aspirin were ordered. The patient's current stable pending admission to the facility. The patient and family are agreeable to admission. - Lab Data Lab results reviewed: Yes I reviewed the patient's lab results. Result diagrams: 03/16/19 10:55 03/16/19 10:55 Lab Results 03/16/19 03/16/19 03/16/19 Range/Units 10:55 10:55 10:55 WBC 6.0 (4.3-11.1) K/mcL RBC 4.93 (3.82-4.97) M/mcL Hgb 14.7 (11.5-15.4) g/dL Hct 45.2 H (35.3-44.9) % MCV 91.7 (83.0-100.0) fL MCH 29.8 (28.0-33.3) pg MCHC 32.5 (31.6-35.5) g/dL RDW 13.2 (11.5-14.5) % Plt Count 239 (140-400) K/mcL MPV 9.9 (9.4-12.4) fL PT 12.3 H (9.4-12.1) Seconds INR 1.1 APTT 35.3 (26.0-36.0) Seconds Sodium 138 (136-145) mEq/L Potassium 3.7 (3.5-5.1) mEq/L Chloride 101 (98-107) mEq/L Carbon Dioxide 24 (23-29) mEq/L BUN 17 (6-20) mg/dL Creatinine 0.67 (0.60-1.20) mg/dL Est GFR ( Amer) > 60 (> 60) Est GFR (Non-Af Amer) > 60 (> 60) BUN/Creatinine Ratio 25 (6-26) Glucose 188 H (70-105) mg/dL Calculated Osmolality 293 (280-300) Calcium 9.7 (8.6-10.3) mg/dL Total Bilirubin 0.6 (0.3-1.0) mg/dL Direct Bilirubin 0.2 (0.0-0.2) mg/dL Indirect Bilirubin 0.4 (0.0-1.2) mg/dL AST 47 H (13-39) Units/L ALT 74 H (7-52) Units/L Alkaline Phosphatase 111 H (34-104) Units/L Troponin I < 0.03 (< 0.04) ng/mL Serum Total Protein 6.9 (6.4-8.9) g/dL Albumin 4.8 (3.5-5.7) g/dL Globulin 2.1 L (2.4-3.5) g/dL Albumin/Globulin Ratio 2.3 H (1.1-2.2) - Radiology Data Radiology results reviewed: Yes I reviewed the patient's radiology results.
[2019-03-16 11:17] LABS: Hematocrit 45.2 % (35.3-44.9); Hemoglobin 14.7 g/dL (11.5-15.4); Mean Corpuscular HGB Conc 32.5 g/dL (31.6-35.5); Mean Corpuscular Hemoglobin 29.8 pg (28.0-33.3); Mean Corpuscular Volume 91.7 fL (83.0-100.0); Mean Platelet Volume 9.9 fL (9.4-12.4); Platelet Count 239 K/mcL (140-400); Red Blood Count 4.93 M/mcL (3.82-4.97); Red Cell Distribution Width 13.2 % (11.5-14.5)
[2019-03-16 11:23] LABS: INR 1.1; Prothrombin Time 12.3 Seconds (9.4-12.1)
[2019-03-16 11:27] LABS: Activated Partial Thrombo Time 35.3 Seconds (26.0-36.0)
[2019-03-16] MEDS ORDERED: *HR* LORazepam 2 MG/ML VIAL IVP ONE (11:42)
[2019-03-16] MEDS ORDERED: Aspirin 325 MG TABLET PO ONE (11:42)
[2019-03-16 11:44] LABS: Alanine Aminotransferase 74 Units/L (7-52); Albumin 4.8 g/dL (3.5-5.7); Albumin/Globulin Ratio 2.3 (1.1-2.2); Alkaline Phosphatase 111 Units/L (34-104); Aspartate Amino Transferase 47 Units/L (13-39); BUN/Creatinine Ratio 25 (6-26); Bilirubin,Direct 0.2 mg/dL (0.0-0.2); Bilirubin,Indirect 0.4 mg/dL (0.0-1.2); Bilirubin,Total 0.6 mg/dL (0.3-1.0); Blood Urea Nitrogen 17 mg/dL (6-20); Calcium 9.7 mg/dL (8.6-10.3); Carbon Dioxide 24 mEq/L (23-29); Chloride 101 mEq/L (98-107); Globulin 2.1 g/dL (2.4-3.5); Glucose 188 mg/dL (70-105); Osmolality,Calculated 293 (280-300); Potassium 3.7 mEq/L (3.5-5.1); Sodium 138 mEq/L (136-145); Total Protein 6.9 g/dL (6.4-8.9); Troponin I < 0.03 ng/mL (< 0.04); eGFR For Non-African Americans > 60 (> 60)
[2019-03-16 13:22] LABS: Bilirubin,Urine Negative (Negative); Blood,Urine Negative (Negative); Clarity,Urine Clear (Clear); Color,Urine Yellow (Yellow); Glucose,Urine (UA) Normal (Normal); Ketones,Urine Negative (Negative); Leukocyte Esterase,Urine Negative (Negative); Nitrite,Urine Negative (Negative); PH,Urine 6.5 pH Units (5.0-8.0); Protein,Urine Negative (Neg-Trace); Specific Gravity,Urine 1.008 (1.010-1.025); Urobilinogen,Urine Normal (Normal)
[2019-03-16 13:37] LABS: Amphetamine Screen,Urine Negative ng/mL (Cutoff=1000); Barbiturate Screen,Urine Positive ng/mL (Cutoff=200); Benzodiazepines Screen,Urine Negative ng/mL (Cutoff=200); Cannabinoid Screen,Urine Negative ng/mL (Cutoff = 50); Cocaine Screen,Urine Negative ng/mL (Cutoff= 300); Opiate Screen,Urine Negative ng/mL (Cutoff=300); Phencyclidine Screen,Urine Negative ng/mL (Cutoff=25)
--- NOTE | 2019-03-16 14:35 | Neurology - Consult Note ---
<Red Black J - Last Filed: 03/16/19 15:32> Date of Encounter: 03/16/19 Time of Encounter: 14:02 Assessment and Plan (1) Stroke-like symptoms Current Visit: Yes Status: Acute neuro c/s for stroke-like sx h/o TIA's; also pseudoseizures. Risk fx, DM, HTN, HLD, TIA, obesity Reporting left arm and leg weakness since 0900 which was lkw Exam reveal left focal motor deficits with diminished sensation of left arm/leg; however, concerns for conversion disorder. Poor effort on exam when assess left sided deficits. Nonetheless we will proceed with CVA w/u. Recommend Psych consult CT head is unremarkable c/w telemetry monitoring c/w CVA w/u including MRI brain, echo and carotid duplex scans c/w neuro assessments per protocol Add ASA 81mg daily and statin History of Present Illness Chief complaint: stroke-like symptoms HPI: Ms. Su is a 53 year old female with a PMH of asthma, cancer, COPD, CVA, fibromyalgia, GERD, hypertension, kidney stones, and seizures vs pseudoseizures. She presents to [facility] with left arm and left leg weakness which began this morning around 9am. She was sleeping on my exam but arousable to verbal stimuli. She and significant other at the bedside are reporting that at she was eating breakfast around 9 am this morning and suddenly developed left arm weakness. Her reports that she suddenly grasped her left arm and quit speaking to him. He reports that after one minutes duration she let go of her arm and was then unable to move it. He attempted to get her up to the couch but noticed that she needed support to ambulate d/t left leg weakness. He denies her having any facial droop or slurred speech. She denies any chest pain, dyspnea, and palpitations. Prior to sx onset she reports headache and blurred vision. She note a h/o seizures. Review of ECW reveals visits with both Dr. Jalloh and Carlos. Patient has a dx of pseudoseizures. She notes that todays events were not the same has her previous seizures. At the time of my assessment she continues to have a headache but the blurred vision has resolved. Neuro exam finds left sided focal weakness. CT heaad in the ED is unremarkable. Past Med Surg Social Fam HX - Past Medical History Medical history: asthma, cancer, COPD, CVA, fibromyalgia, GERD, hypertension, kidney stones, seizures, other Additional medical history: BREAST CA, PSUEDOSEIZURES Psychiatric history: anxiety, depression - Past Surgical History Surgical History: appendectomy, cancer surgery, cholecystectomy, hysterectomy, other Additional surgical history: knee replacement. esophagus surgery - Social History Smoking Status: Current every day smoker Smokeless Tobacco Status: No Alcohol use: none Drug use: prescription drug abuse - Family History Mother Living Status: Still Living Hx Family Cancer: Yes Father Living Status: Hx Family Cardiac Disorders: Yes Hx Family Cancer: Yes Medications and Allergies Acetaminophen/Butalbital/Caffe [Fioricet] 1 each PO TID PRN 11/26/18 [History] Ammonium Lactate [Lac-Hydrin Five] 1 appl TP DAILY 11/26/18 [History] Benzonatate [Tessalon] 100 mg PO TID PRN 11/26/18 [History] Bifidobacterium Infantis [Align] 4 mg PO DAILY 11/26/18 [History] Calcium Carbonate/Vitamin D3 [Calcium 500 + Vit D Caplet] 1 each PO DAILY 11/26/18 [History] Cetirizine HCl [24Hour Allergy] 10 mg PO DAILY 11/26/18 [History] Cyclosporine [Restasis] 1 each OP BID 11/26/18 [History] Dicyclomine [Bentyl] 10 mg PO QID PRN 11/26/18 [History] Docusate Sodium [Dulcolax Stool Softener] 200 mg PO TID 11/26/18 [History] Ergocalciferol (VITAMIN D2) [Drisdol (50,000 Unit)] 50,000 unit PO QWEEK 11/26/18 [History] Fluticasone Propionate Nasal [Flonase] 50 mcg NS DAILY 11/26/18 [History] Fluticasone/Vilanterol [Breo Ellipta 100-25 Mcg INH] 1 each IH DAILY 11/26/18 [History] Furosemide [Lasix] 20 - 40 mg PO DAILY PRN 11/26/18 [History] Hydrocortisone 2.5% CREAM [Cortaid] 1 appl TP DAILY PRN 11/26/18 [History] Isosorbide MONOnitrate (24 HR) [Imdur] 90 mg PO DAILY 11/26/18 [History] Levalbuterol Tartrate [Xopenex Hfa] 4 puff IH Q6H PRN 11/26/18 [History] Melatonin 10 mg PO HS PRN 11/26/18 [History] Metoprolol XL (24 HR) Succ [Toprol Xl] 50 mg PO DAILY 11/26/18 [History] Montelukast [Singulair] 10 mg PO HS 11/26/18 [History] Multivit-Min/Iron/Folic Acid/K [Adults Multivitamin Caplet] 1 each PO DAILY 11/26/18 [History] Nitroglycerin [Nitrostat] 0.4 mg SL Q5MIN PRN 11/26/18 [History] Nystatin POWDER [Nystop] 1 appl TP TID 11/26/18 [History] Ondansetron ODT [Zofran ODT] 4 mg SL Q8HR PRN 11/26/18 [History] Pantoprazole Sodium [Protonix] 40 mg PO DAILY 11/26/18 [History] Prazosin [Minipress] 1 - 2 mg PO HS 11/26/18 [History] Rosuvastatin [Crestor] 20 mg PO HS 11/26/18 [History] Sucralfate [Carafate] 1 gm PO TID 11/26/18 [History] Tiotropium [Spiriva] 18 mcg IH 0700 11/26/18 [History] Tramadol HCl [Ultram] 50 - 100 mg PO TID 11/26/18 [History] Venlafaxine HCl [Venlafaxine HCl ER] 150 mg PO BID 11/26/18 [History] clonazePAM [Clonazepam] 0.5 mg PO DAILY 11/26/18 [History] lamoTRIgine [Lamictal] 100 mg PO BID 11/26/18 [History] raNITIdine HCl [Ranitidine HCl] 300 mg PO HS 11/26/18 [History] traZODone [TraZODone] 300 mg PO HS 11/26/18 [History] Cholecalciferol (D-3) [Vitamin D] 1,000 unit PO DAILY tablet 11/27/18 [Rx] Multivitamin [One Daily Multivitamin] 1 each PO DAILY #90 tablet 12/30/18 [Rx] Allergy/AdvReac Type Severity Reaction Status Date / Time fluconazole [From Diflucan] Allergy Seizure Verified 06/17/18 11:11 fluoxetine [From Prozac] Allergy Difficulty Verified 06/17/18 11:11 Breathing Sulfa (Sulfonamide Allergy Rash Verified 06/17/18 11:11 Antibiotics) sumatriptan [From Imitrex] Allergy Rash Verified 06/17/18 11:11 All Systems: The remainder of the systems were reviewed and are negative Review of Systems: REVIEW OF SYSTEMS GENERAL: Negative for any nausea, vomiting, fevers, chills NEUROLOGIC: Negative for any blind spots, double vision, facial asymmetry, dysphagia, dysarthria, seizures, tingling, numbness, unilateral weakness or numbness/tingling Positive- blurred vision (has resolved), left sided weakness (left arm and leg), difficulty with ambulation with LLE weakness HEENT: Negative for any head trauma, neck trauma, neck stiffness, photophobia, phonophobia, dysphagia, tinnitus CARDIAC: Negative for any chest pain, dyspnea, palpitations MUSCULOSKELETAL: Positive-loss of strength left arm and leg, decreased activity tolerance Physical Examination - Vital Signs Vital Signs: Initial Vital Signs Temp Pulse Resp BP Pulse Ox 98.6 F 103 16 140/90 95 03/16/19 10:51 03/16/19 10:51 03/16/19 10:51 03/16/19 10:51 03/16/19 10:51 - Exam Exam: Examination: General Examination: *CONSTITUTIONAL: Alert and oriented x3, no acute distress *GENERAL APPEARANCE OF PATIENT ill appearing obese female *EYES: pupils equal, round, reactive to light and accommodation, conjunctiva clear *CARDIOVASCULAR no peripheral edema, distal temperature normal, dorsalis pedis pulses normal. see vital signs Musculoskeletal: *GAIT AND STATION not assessed d/t left sided weakness *ASSESSMENT OF MUSCLE STRENGTH IN THE UPPER AND LOWER EXTREMITIES Right deltoid, bicep, tricep, apparel stock checker strength, hip flexors, anterior tibialis, dorsoflexion of the foot 5/5; left deltoid, bicep, tricep, apparel stock checker strength, hip flexors, anterior tibialis, and dorsoflexion of the left foot 3/5 *MUSCLE TONE IN THE UPPER AND LOWER EXTREMITIES normal. No abnormal move ments, fasciculations or atrophy identified Neurological: *ORIENTATION to person, situation, time and place *RECURRENT AND REMOTE MEMORY intact *ATTENTION AND CONCENTRATION are normal *LANGUAGE FUNCTION no significant aphasia or dysarthia was noted. *FUND OF KNOWLEDGE aware of current events, past history, vocabulary *MENTAL attention span and concentration normal. *CN II optic fundi were normal, no papilledema noted. *CN III,IV, PERRLA extraocular eye movements were full, no nystagmus and no ptosis noted. *CN V shows normal sensation and jaw opens symmetrically. *CN VII shows normal facial movement symmetrically, upper and lower bilaterally. *CN VIII shows no significant hearing loss on exam *CN IX,,X palate elevated symmetrically *CN XI normal strength in the sternocleidomastoid muscles, symmetrical shoulder shrugging. *CN XII tongue protruded in the midline, with normal strength and mov ement. *SENSORY EXAMINATION light touch intact *REFLEXES: deep tendon reflexes were normal and symmetrical , grade 2/4 diffusely, no pathological reflexes were noted. *CEREBELLAR TESTING normal finger to nose, heel/knee/martinez *PAIN LEVEL 0/10 Results - Laboratory Findings CBC and BMP: 03/16/19 10:55 03/16/19 10:55 Abnormal lab findings: Abnormal lab results Hct 45.2 % (35.3-44.9) H 03/16/19 10:55 PT 12.3 Seconds (9.4-12.1) H 03/16/19 10:55 Glucose 188 mg/dL (70-105) H 03/16/19 10:55 AST 47 Units/L (13-39) H 03/16/19 10:55 ALT 74 Units/L (7-52) H 03/16/19 10:55 111 Units/L (34-104) H 03/16/19 10:55 2.1 g/dL (2.4-3.5) L 03/16/19 10:55 2.3 (1.1-2.2) H 03/16/19 10:55 Ur Specific [place] 1.008 (1.010-1.025) L 03/16/19 12:54 Ur Barbiturates Screen Positive ng/mL (Qmhagy=298) H 03/16/19 12:54 Consult Discharge Plan - Plan Referrals: Zach Disla MD [Primary Care Provider] - <Obinna Gonzalez I - Last Filed: 03/16/19 16:09> Date of Encounter: 03/16/19 Assessment and Plan (1) Stroke-like symptoms Current Visit: Yes Status: Acute I have personally performed a face to face diagnostic evaluation, including HPI, EXAM, which is included in the Assesment and plan, which was discussed with Red Black CNP, I agree with the above outlined documentation. Patient is known to me from previous visits and admissions. Exam findings is quite functional on my evaluation she is able to move arms with deep pain as well as left leg. She will be getting MRI of the brain and a stroke workup all negative certainly need to be evaluated by a psychiatrist Continue aspirin daily at this time Obinna Gonzalez MD. Neurology History of Present Illness HPI: Ms. Su is a 53 year old female All Systems: The remainder of the systems were reviewed and are negative Physical Examination - Vital Signs Vital Signs: Initial Vital Signs Temp Pulse Resp BP Pulse Ox 98.6 F 103 16 140/90 95 03/16/19 10:51 03/16/19 10:51 03/16/19 10:51 03/16/19 10:51 03/16/19 10:51 Results - Laboratory Findings CBC and BMP: 03/16/19 10:55 03/16/19 10:55 Abnormal lab findings: Abnormal lab results Hct 45.2 % (35.3-44.9) H 03/16/19 10:55 PT 12.3 Seconds (9.4-12.1) H 03/16/19 10:55 Glucose 188 mg/dL (70-105) H 03/16/19 10:55 AST 47 Units/L (13-39) H 03/16/19 10:55 ALT 74 Units/L (7-52) H 03/16/19 10:55 111 Units/L (34-104) H 03/16/19 10:55 2.1 g/dL (2.4-3.5) L 03/16/19 10:55 2.3 (1.1-2.2) H 03/16/19 10:55 Ur Specific [place] 1.008 (1.010-1.025) L 03/16/19 12:54 Ur Barbiturates Screen Positive ng/mL (Wmsrvs=377) H 03/16/19 12:54
--- NOTE | 2019-03-16 15:14 | Internal Med History&Physical ---
Date of Encounter: 03/16/19 Time of Encounter: 12:00 Internal Medicine - H&P: HPI Chief complaint: left-sided weakness History of present illness: 53-year-old female with a history of asthma, cancer, COPD, CVA, fibromyalgia, GERD, hypertension, kidney stones, and seizures vs pseudoseizures reports emergency department via EMS with left upper and left lower extremity weakness and is gazing to the right and is been nonverbal. Stroke alert was activated, CAT scan of the head was no significant abnormality,The patient is not a candidate for TPA. The patient now has no complaints except for headache,blurred vision. Neuro exam finds left sided focal weakness. the patient is complaining of difficulty ambulation due to weakness of left lower extremity and she is requesting a Larson catheter. The patient is following up with neurology as an outpatient for dx of pseudoseizures. Neurology was consulted and patient was admitted for further evaluation and management. Past Med Surg Social Fam HX - Past Medical History Medical history: asthma, cancer, COPD, CVA, fibromyalgia, GERD, hypertension, kidney stones, seizures, other Additional medical history: BREAST CA, PSUEDOSEIZURES Psychiatric history: anxiety, depression - Past Surgical History Surgical History: appendectomy, cancer surgery, cholecystectomy, hysterectomy, other Additional surgical history: knee replacement. esophagus surgery - Social History Smoking Status: Current every day smoker Smokeless Tobacco Status: No Alcohol use: none Drug use: prescription drug abuse - Family History Mother Living Status: Still Living Hx Family Cancer: Yes Father Living Status: Hx Family Cardiac Disorders: Yes Hx Family Cancer: Yes Internal Medicine - H&P: Meds Acetaminophen/Butalbital/Caffe [Fioricet] 1 tab PO TID PRN 11/26/18 [History] Bifidobacterium Infantis [Align] 4 mg PO DAILY 11/26/18 [History] Calcium Carbonate/Vitamin D3 [Calcium 500 + Vit D Caplet] 1 tab PO DAILY 11/26/18 [History] Cetirizine HCl [24Hour Allergy] 10 mg PO DAILY 11/26/18 [History] Dicyclomine [Bentyl] 10 mg PO QID PRN 11/26/18 [History] Docusate Sodium [Dulcolax Stool Softener] 200 mg PO TID PRN 11/26/18 [History] Ergocalciferol (VITAMIN D2) [Drisdol (50,000 Unit)] 50,000 unit PO FR 11/26/18 [History] Fluticasone Propionate Nasal [Flonase] 1 spray NS DAILY 11/26/18 [History] Fluticasone/Vilanterol [Breo Ellipta 100-25 Mcg INH] 1 puff IH DAILY 11/26/18 [History] Furosemide [Lasix] 20 - 40 mg PO DAILY PRN 11/26/18 [History] Hydrocortisone 2.5% CREAM [Cortaid] 1 appl TP BID PRN 11/26/18 [History] Isosorbide MONOnitrate (24 HR) [Imdur] 60 mg PO QAM 11/26/18 [History] Levalbuterol Tartrate [Xopenex Hfa] 2 puff IH Q6H PRN 11/26/18 [History] Melatonin 10 mg PO HS PRN 11/26/18 [History] Metoprolol XL (24 HR) Succ [Toprol Xl] 50 mg PO DAILY 11/26/18 [History] Montelukast [Singulair] 10 mg PO HS 11/26/18 [History] Multivit-Min/Iron/Folic Acid/K [Adults Multivitamin Caplet] 1 tab PO DAILY 11/26/18 [History] Nitroglycerin [Nitrostat] 0.4 mg SL Q5MIN PRN 11/26/18 [History] Ondansetron ODT [Zofran ODT] 4 mg SL Q8HR PRN 11/26/18 [History] Pantoprazole Sodium [Protonix] 40 mg PO DAILY 11/26/18 [History] Prazosin [Minipress] 2 mg PO HS 11/26/18 [History] Rosuvastatin [Crestor] 20 mg PO QAM 11/26/18 [History] Sucralfate [Carafate] 1 gm PO TID 11/26/18 [History] lamoTRIgine [Lamictal] 100 mg PO BID 11/26/18 [History] raNITIdine HCl [Ranitidine HCl] 300 mg PO HS 11/26/18 [History] Albuterol Neb [Proventil Neb] 2.5 mg IH TID PRN 03/16/19 [History] Amitriptyline HCl 100 mg PO HS 03/16/19 [History] Benzonatate [Tessalon] 200 mg PO TID PRN 03/16/19 [History] Carboxymethylcellulose Sodium [Refresh Tears] 2 drop BOTH EYES BID PRN 03/16/19 [History] Celecoxib [Celebrex] 200 mg PO BID PRN 03/16/19 [History] Chlorzoxazone 500 mg PO QID PRN 03/16/19 [History] Ciclopirox [Penlac] 1 appl TP DAILY PRN 03/16/19 [History] Diclofenac Sodium [Voltaren] 2 gm TP TID PRN 03/16/19 [History] Fexofenadine HCl 180 mg PO QAM PRN 03/16/19 [History] Galcanezumab-Gnlm [Emgality] 120 mg SQ QMONTH 03/16/19 [History] HYDROcodone/Acet 5/325 mg [Blanca 5-325 mg] 1 tab PO TID PRN 03/16/19 [History] Ibuprofen [Ibu] 800 mg PO TID PRN 03/16/19 [History] Ketotifen Fumarate [Zaditor] 1 drop BOTH EYES DAILY 03/16/19 [History] Levocetirizine Dihydrochloride [Allergy Relief (Xyzal)] 5 mg PO DAILY 03/16/19 [History] Lisinopril [Zestril] 5 mg PO DAILY 03/16/19 [History] Meclizine [Antivert] 12.5 - 25 mg PO TID PRN 03/16/19 [History] Memantine HCl 10 mg PO BID 03/16/19 [History] Metformin HCl [Fortamet] 1,000 mg PO QPM 03/16/19 [History] Mirtazapine [Remeron] 7.5 - 15 mg PO HS 03/16/19 [History] Mupirocin [Bactroban Oint] 1 appl TP TID PRN 03/16/19 [History] Naproxen [Naprosyn] 500 mg PO DAILY PRN 03/16/19 [History] Plecanatide [Trulance] 3 mg PO DAILY PRN 03/16/19 [History] Prochlorperazine Maleate [Compazine] 10 mg PO Q8H PRN 03/16/19 [History] Scopolamine Patch [Transderm-Scop] 1.5 mg TD Q72H PRN 03/16/19 [History] Terbinafine HCl [Terbinafine] 1 appl TP DAILY PRN 03/16/19 [History] Tiotropium [place] [Spiriva Respimat] 2 puff IH DAILY 03/16/19 [History] Topiramate 50 mg PO BID 03/16/19 [History] Venlafaxine [Effexor] 75 mg PO DAILY 03/16/19 [History] Zolpidem [Ambien] 5 mg PO HS 03/16/19 [History] dilTIAZem HCl [Diltiazem 24Hr ER] 120 mg PO DAILY 03/16/19 [History] hydrOXYzine HCl [Hydroxyzine HCl] 50 mg PO BID PRN 03/16/19 [History] Allergy/AdvReac Type Severity Reaction Status Date / Time fluconazole [From Diflucan] Allergy Seizure Verified 06/17/18 11:11 fluoxetine [From Prozac] Allergy Difficulty Verified 06/17/18 11:11 Breathing Sulfa (Sulfonamide Allergy Rash Verified 06/17/18 11:11 Antibiotics) sumatriptan [From Imitrex] Allergy Rash Verified 06/17/18 11:11 All Systems PM: A 10-system review of systems was performed and is negative for pertinent findings except as documented above in the HPI. - Constitutional Constitutional: weakness, no chills, no fever(s), no night sweats - Cardiovascular Cardiovascular ROS IM: no chest pain, no diaphoresis, no dyspnea, no lightheadedness, no palpitations, no syncope - Respiratory Respiratory: no cough, no dyspnea, no wheezing, no excessive phlegm production - Gastrointestinal Gastrointestinal: no abdominal pain, no diarrhea, no hematemesis, no hematochezia, no melena, no nausea, no vomiting - Genitourinary Genitourinary: no change in urinary stream, no dysuria, no flank pain, no hematuria - Neurological Neurological ROS: weakness - Constitutional Vitals: Temp Pulse Resp BP Pulse Ox 97.8 F 86 17 129/83 93 03/16/19 14:51 03/16/19 14:51 03/16/19 14:51 03/16/19 14:51 03/16/19 14:51 Exam: below - Head Head exam: Present: atraumatic, normocephalic - Eye Eye exam: Present: PERRL, conjuntiva pink, sclera anicteric Pupils: Present: PERRL - Neck Neck exam general surgery: Present: supple, trachea midline. Absent: lymphadenopathy - Respiratory Respiratory exam: Present: CTAB. Absent: accessory muscle use, rales, rhonchi, wheezes - Cardiovascular Cardiovascular exam: Present: RRR, +S1, +S2. Absent: diastolic murmur, gallop, rubs, systolic murmur - GI/Abdominal GI/Abdominal exam: Present: normal bowel sounds, soft, no peritoneal signs. Absent: distended, tenderness - Extremities Exam Extremities exam: Present: warm, radial pulses palpable and symmetrical. Absent: calf tenderness, cyanotic, pedal edema - Neurological Exam Neurological exam: Present: CN II-XII intact, oriented X3. Absent: pronater drift, facial droop, speech deficit Additional comments: left-sided weakness - Skin Skin exam: Present: dry, intact Internal Med - H&P Results - Labs CBC & Chem 7: 03/17/19 04:23 03/17/19 04:00 Labs: Short CBC 03/16/19 Range/Units 10:55 WBC 6.0 (4.3-11.1) K/mcL Hgb 14.7 (11.5-15.4) g/dL Hct 45.2 H (35.3-44.9) % Plt Count 239 (140-400) K/mcL BMP 03/16/19 10:55 Sodium 138 Potassium 3.7 Chloride 101 Carbon Dioxide 24 BUN 17 Creatinine 0.67 Glucose 188 H Calcium 9.7 Cardiac Enzymes 03/16/19 Range/Units 10:55 Troponin I < 0.03 (< 0.04) ng/mL Liver Function 03/16/19 Range/Units 10:55 Total Bilirubin 0.6 (0.3-1.0) mg/dL Direct Bilirubin 0.2 (0.0-0.2) mg/dL AST 47 H (13-39) Units/L ALT 74 H (7-52) Units/L Alkaline Phosphatase 111 H (34-104) Units/L Albumin 4.8 (3.5-5.7) g/dL Urine 03/16/19 Range/Units 12:54 Urine Color Yellow (Yellow) Urine Clarity Clear (Clear) Urine pH 6.5 (5.0-8.0) pH Units Ur Specific [place] 1.008 L (1.010-1.025) Urine Protein Negative (Neg-Trace) mg/dL Urine Glucose (UA) Normal (Normal) mg/dL - Impressions ITS Impressions Head CT 03/16/19 10:57 IMPRESSION: No acute intracranial abnormality. Critical results were called by Dr. Alfonso Weston MD to Luis Grimm MD on 03/16/2019 at 11:25. D/ / Alfonso Weston MD / Alfonso Weston MD Interpreting Provider: Alfonso Weston MD Chest X-Ray 03/16/19 10:58 IMPRESSION: Stable exam. No new acute cardiopulmonary findings. D/ / Lamar Contreras MD / Lamar Contreras MD Interpreting Provider: Lamar Contreras MD - Assessment and Plan (1) Transient cerebral ischemia Current Visit: Yes Status: Acute Assessment and plan: *TIA -Swallow evaluation at bedside- - Neuro consult - Neuro check Qualifiers: Transient cerebral ischemia type: unspecified Qualified Code(s): G45.9 - Transient cerebral ischemic attack, unspecified (2) GERD (gastroesophageal reflux disease) Current Visit: No Status: Chronic Qualifiers: Esophagitis presence: with esophagitis Qualified Code(s): K21.0 - Gastro-esophageal reflux disease with esophagitis (3) HTN (hypertension) Current Visit: No Status: Chronic Assessment and plan: we will continue home medication, continue to monitor vital signs and adjust antihypertensive regimen if indicated Qualifiers: Hypertension type: essential hypertension Qualified Code(s): I10 - Essential (primary) hypertension (4) History of pseudoseizure Current Visit: Yes Status: Acute Assessment and plan: neurology was consulted, the patient follow up with neurology as an outpatient (5) Stroke-like symptoms Current Visit: Yes Status: Acute (6) Breast cancer Current Visit: No Status: Chronic Qualifiers: Qualified Code(s): C50.919 - Malignant neoplasm of unspecified site of unspecified female breast (7) COPD (chronic obstructive pulmonary disease) Current Visit: No Status: Chronic Assessment and plan: start the patient on DuoNeb when necessary Qualifiers: COPD type: unspecified COPD Qualified Code(s): J44.9 - Chronic obstructive pulmonary disease, unspecified (8) Tobacco abuse Current Visit: No Status: Chronic - Time Spent With Patient Total time spent is greater than 50% in coordination of care (as documented) at patient's floor/unit and/or counseling patient:
[2019-03-16] MEDS ORDERED: Naloxone 0.4 MG/ML INJ IVP PRN (16:24)
[2019-03-16] MEDS: Ketorolac 15 MG/ML VIAL IVP PRN (17:20)
[2019-03-16] MEDS: OXYCODONE Oral CONC 10 MG/0.5 ML ORAL.SYG SL PRN (21:11)
[2019-03-17] MEDS ORDERED: *HR* LORazepam 2 MG/ML VIAL IVP ONE (00:35)
[2019-03-17] MEDS: OXYCODONE Oral CONC 10 MG/0.5 ML ORAL.SYG SL PRN (00:43)
[2019-03-17 04:46] LABS: INR 1.1; Prothrombin Time 12.2 Seconds (9.4-12.1)
[2019-03-17 04:49] LABS: Activated Partial Thrombo Time 34.5 Seconds (26.0-36.0)
[2019-03-17 04:59] LABS: Alanine Aminotransferase 71 Units/L (7-52); Albumin 4.1 g/dL (3.5-5.7); Albumin/Globulin Ratio 1.7 (1.1-2.2); Alkaline Phosphatase 88 Units/L (34-104); Aspartate Amino Transferase 46 Units/L (13-39); BUN/Creatinine Ratio 31 (6-26); Bilirubin,Total 0.5 mg/dL (0.3-1.0); Blood Urea Nitrogen 21 mg/dL (6-20); Calcium 9.1 mg/dL (8.6-10.3); Carbon Dioxide 24 mEq/L (23-29); Chloride 105 mEq/L (98-107); Chol/HDL Ratio 4.6 (0-4.9); Cholesterol 166 mg/dL (< 200); Globulin 2.4 g/dL (2.4-3.5); Glucose 164 mg/dL (70-105); HDL Cholesterol 36 mg/dL (40-59); LDL Cholesterol,Calculated 56 mg/dL (0-99); Magnesium 2.1 mg/dL (1.6-2.6); Osmolality,Calculated 283 (280-300); Phosphorous 4.4 mg/dL (2.7-4.5); Potassium 3.7 mEq/L (3.5-5.1); Sodium 133 mEq/L (136-145); Total Protein 6.5 g/dL (6.4-8.9); Triglycerides 371 mg/dL (< 150); eGFR For Non-African Americans > 60 (> 60)
[2019-03-17] MEDS: Aspirin 81 MG TAB.CHEW PO SCH (09:12)
[2019-03-17] MEDS: Ketorolac 15 MG/ML VIAL IVP PRN ×2 (09:12→20:27)
--- NOTE | 2019-03-17 09:18 | Neurology Progress Note ---
<Red Black J - Last Filed: 03/17/19 14:35> Date of Encounter: 03/17/19 Time of Encounter: 09:16 Assessment and Plan (1) Stroke-like symptoms Current Visit: Yes Status: Acute Neuro consulted for strokelike symptoms History of TIAs, pseudoseizures, anxiety, depression Risk factors, DM, HTN, HLD, TIA and obesity Neuro imaging including CT head, MRI of the brain unremarkable; MRI finding mild chronic microvascular white matter ischemic disease which is unchanged from prior imaging. Chronic infarcts noted in the right medial occipital lobe and medial cerebellar hemispheres. Echocardiogram completed 12/15 grossly normal Carotid duplex w/ nonstenotic plaque bilaterally p/w left arm and leg weakness which began yesterday morning. All symptoms have resolved and patient back to baseline Neuro exam is nonfocal and nonlateralizing; with no most likely at this time she may have a conversion disorder in the setting of a negative neuro workup. Also, yesterday she was able to move left side to deep painful stimulus. Patient has a h/o pseudoseizures which is manifested from emotional distress, given that hx she is most likely manifesting neurological sx with conversion disorder. Most likely not TIA or cerebrovascular event of any sort. Recommend consultation with psychiatry c/w aspirin and statin daily given risk factors Neurology will sign off at this time Okay to d/c at the discretion of the primary team Subjective Principal diagnosis: stroke like sx; most likely conversion disorder Interval history: Patient seen in follow-up for strokelike activity. Presented yesterday with left arm and leg weakness. All symptoms are resolving as of this morning. St roke workup unremarkable. Prior history of pseudoseizures. At this juncture we feel most likely this is conversion disorder. Objective - Constitutional Vitals: Temp Pulse Resp BP Pulse Ox 98.3 F 76 16 139/100 94 03/17/19 07:14 03/17/19 07:14 03/17/19 07:14 03/17/19 07:14 03/17/19 07:14 Exam: Examination: General Examination: *CONSTITUTIONAL: Alert and oriented x3, no acute distress *GENERAL APPEARANCE OF PATIENT ill appearing obese female *EYES: pupils equal, round, reactive to light and accommodation, conjunctiva clear *CARDIOVASCULAR no peripheral edema, distal temperature normal, dorsalis pedis pulses normal. see vital signs Musculoskeletal: *GAIT AND STATION not assessed d/t left sided weakness *ASSESSMENT OF MUSCLE STRENGTH IN THE UPPER AND LOWER EXTREMITIES bilateral deltoid, bicep, tricep, filling layer up strength, hip flexors, anterior tibialis, dorsoflexion of the foot 4/5 *MUSCLE TONE IN THE UPPER AND LOWER EXTREMITIES normal. No abnormal movements, fasciculations or atrophy identified Neurological: *ORIENTATION to person, situation, time and place *RECURRENT AND REMOTE MEMORY intact *ATTENTION AND CONCENTRATION are normal *LANGUAGE FUNCTION no significant aphasia or dysarthia was noted. *FUND OF KNOWLEDGE aware of current events, past history, vocabulary *MENTAL attention span and concentration normal. *CN II optic fundi were normal, no papilledema noted. *CN III,IV, PERRLA extraocular eye movements were full, no nystagmus and no ptosis noted. *CN V shows normal sensation and jaw opens symmetrically. *CN VII shows normal facial movement symmetrically, upper and lower bilaterally. *CN VIII shows no significant hearing loss on exam *CN IX,,X palate elevated symmetrically *CN XI normal strength in the sternocleidomastoid muscles, symmetrical shoulder shrugging. *CN XII tongue protruded in the midline, with normal strength and movement. *SENSORY EXAMINATION light touch intact *REFLEXES: deep tendon reflexes were normal and symmetrical , grade 2/4 diffusely, no pathological reflexes were noted. *CEREBELLAR TESTING normal finger to nose, heel/knee/martinez *PAIN LEVEL 0/10 Results - Laboratory Findings CBC and BMP: 03/17/19 04:23 03/17/19 04:00 Abnormal lab findings: Abnormal lab results Hct 45.2 % (35.3-44.9) H 03/16/19 10:55 PT 12.2 Seconds (9.4-12.1) H 03/17/19 04:00 Sodium 133 mEq/L (136-145) L 03/17/19 04:00 BUN 21 mg/dL (6-20) H 03/17/19 04:00 31 (6-26) H 03/17/19 04:00 Glucose 164 mg/dL (70-105) H 03/17/19 04:00 POC Glucose 133 mg/dL (70-99) H 03/16/19 14:48 AST 46 Units/L (13-39) H 03/17/19 04:00 ALT 71 Units/L (7-52) H 03/17/19 04:00 111 Units/L (34-104) H 03/16/19 10:55 2.1 g/dL (2.4-3.5) L 03/16/19 10:55 2.3 (1.1-2.2) H 03/16/19 10:55 Triglycerides 371 mg/dL (< 150) H 03/17/19 04:00 VLDL Cholesterol, Calc 74 mg/dL (< 31) H 03/17/19 04:00 36 mg/dL (40-59) L 03/17/19 04:00 Ur Specific [place] 1.008 (1.010-1.025) L 03/16/19 12:54 Ur Barbiturates Screen Positive ng/mL (Kecmwl=692) H 03/16/19 12:54 Consult Discharge Plan - Plan Referrals: Zach Disla MD [Primary Care Provider] - (Appointment has been requested) <Obinna Gonzalez I - Last Filed: 03/18/19 15:54> Date of Encounter: 03/18/19 Assessment and Plan (1) Stroke-like symptoms Current Visit: Yes Status: Acute I have personally performed a face to face diagnostic evaluation, including HPI, EXAM, which is included in the Assesment and plan, which was discussed with Red Black CNP, I agree with the above outlined documentation. Obinna Gonzalez MD. NeurologyI Objective - Constitutional Vitals: Temp Pulse Resp BP Pulse Ox 97.7 F 98 15 143/104 97 03/18/19 11:30 03/18/19 11:30 03/18/19 11:30 03/18/19 11:30 03/18/19 11:30 Results - Laboratory Findings CBC and BMP: 03/17/19 04:23 03/17/19 04:00 Abnormal lab findings: Abnormal lab results Hct 45.2 % (35.3-44.9) H 03/16/19 10:55 PT 12.2 Seconds (9.4-12.1) H 03/17/19 04:00 Sodium 133 mEq/L (136-145) L 03/17/19 04:00 BUN 21 mg/dL (6-20) H 03/17/19 04:00 31 (6-26) H 03/17/19 04:00 Glucose 164 mg/dL (70-105) H 03/17/19 04:00 POC Glucose 153 mg/dL (70-99) H 03/17/19 20:39 AST 46 Units/L (13-39) H 03/17/19 04:00 ALT 71 Units/L (7-52) H 03/17/19 04:00 111 Units/L (34-104) H 03/16/19 10:55 2.1 g/dL (2.4-3.5) L 03/16/19 10:55 2.3 (1.1-2.2) H 03/16/19 10:55 Triglycerides 371 mg/dL (< 150) H 03/17/19 04:00 VLDL Cholesterol, Calc 74 mg/dL (< 31) H 03/17/19 04:00 36 mg/dL (40-59) L 03/17/19 04:00 Ur Specific [place] 1.008 (1.010-1.025) L 03/16/19 12:54 Moderate (Negative) H 03/17/19 09:26 Ur Leukocyte Esterase Small (Negative) H 03/17/19 09:26 15-30 per hpf (0-3) H 03/17/19 09:26 5-15 per hpf (0-3) H 03/17/19 09:26 Ur Squamous Epith Cells Moderate per lpf (None-Few) H 03/17/19 09:26 Ur Barbiturates Screen Positive ng/mL (Ozifjd=648) H 03/16/19 12:54
[2019-03-17 09:33] LABS: Bilirubin,Urine Negative (Negative); Blood,Urine Moderate (Negative); Clarity,Urine Clear (Clear); Color,Urine Yellow (Yellow); Glucose,Urine (UA) Normal (Normal); Ketones,Urine Negative (Negative); Leukocyte Esterase,Urine Small (Negative); Nitrite,Urine Negative (Negative); PH,Urine 5.5 pH Units (5.0-8.0); Protein,Urine Negative (Neg-Trace); Specific Gravity,Urine 1.021 (1.010-1.025); Urobilinogen,Urine Normal (Normal)
[2019-03-17 09:34] LABS: Bacteria,Urine None Seen per hpf (None-Few); Hyaline Casts,Urine None Seen per lpf (None-Few); RBC,Urine 15-30 per hpf (0-3); Squamous Epithelial Cell,Urine Moderate per lpf (None-Few)
[2019-03-17 10:33] LABS: Hematocrit 42.7 % (35.3-44.9); Hemoglobin 13.6 g/dL (11.5-15.4); Mean Corpuscular HGB Conc 31.9 g/dL (31.6-35.5); Mean Corpuscular Volume 94.3 fL (83.0-100.0); Mean Platelet Volume 10.6 fL (9.4-12.4); Platelet Count 241 K/mcL (140-400); Red Blood Count 4.53 M/mcL (3.82-4.97); Red Cell Distribution Width 13.7 % (11.5-14.5)
--- NOTE | 2019-03-17 14:21 | Consult Note ---
Date of Encounter: 03/17/19 Time of Encounter: 14:13 Assessment & Recommendation (1) Conversion disorder Current visit: Yes Status: Acute Assessment & Recommendation: Client likely having conversion symptoms if no organic cause of hemiparesis is found. She has known pseudoseizures so she does manifest emotional distress through physical symptoms. Client denies any recent life stressors which will often precede a clinical presentation of conversion disorder. However, acute stressors are not necessary and client does have baseline anxiety and depression. She was recently taking effexor 150mg BID and has quickly decreased her dose to 75mg daily. Client is unsure why this change was made. Client is not aware of an increase in her depression and anxiety but given the change in her dosing it would be reasonable for her to expect an increase in these symptoms. There is also a withdrawal syndrome associated with effexor that can include neurological sensations like shock-like sensations. Client may be experiencing these symptoms and mentally catastrophizing them into something more serious. Recommend increasing her dose of effexor to 150mg daily to start. Client experienced some relief with ativan. Can use low doses of this in the hospital but do not recommend it on an outpatient basis or as a long term care administrator solution. Conversion Disorder can be difficult to treat but will likely resolve on its own in time. Outpatient therapy can be helpful. Client is linked with [facility] and she should continue to follow up there. Insuring she has an appointment close to discharge would be beneficial. Call if any questions. History of Present Illness Requesting Physician: Polly Way Reason for consult: conversion symptoms History of present illness: Ms. Su is a 53 year old female with multiple medical problems who presented to the hospital with stroke like symptoms. Client continues to complain of left sided hemiparesis but neurological work-up has been negative. Psychiatry was consulted for possible Conversion Disorder. On eval client is alert and oriented. at bedside and able to provide collateral information. Client is currently treated through [facility] for depression and anxiety. Denies SI, intent,or plan. No evidence of a thought disorder. States she has been stable for years on medication regimen but that lately her psychiatrist has been taking her off of her Effexor. Client denies knowing why this change is being made. Client states she was recently told she has a fatty liver and elevated blood sugars but Effexor should not dramatically impact either of these issues. Client reports she was taking 150mg BID and is now down to 75mg daily. Client reports the decreased dosing has happened rather quickly. Client denies noticing an increase in her anxiety or depression with the change in meds but it is possible these symptoms are being manifested physically rather than mentally. Client does have pseudoseizures so she is predisposed to physical manifestations of her mental health issues. Client did report that Ativan she is receiving in the hospital is helping her feel better. Both client and deny any AOD issues. CC: Polly [address] Past Med Surg Social Fam HX - Past Medical History Medical history: asthma, cancer, COPD, CVA, fibromyalgia, GERD, hypertension, kidney stones, seizures, other - Past Psychiatric History Psychiatric history: Reports: anxiety, depression Family psychiatric history: Unknown Family History of Suicide: Unknown - Past Surgical History Surgical History: appendectomy, cancer surgery, cholecystectomy, hysterectomy, other - Social History Smoking Status: Current every day smoker Smokeless Tobacco Status: No Alcohol use: none Drug use: prescription drug abuse - Family History Mother Living Status: Still Living Hx Family Cancer: Yes Father Adopted: No Family Member Ethnicity: Non- Living Status: Age at : 56 Cause of : mi Hx Family Cardiac Disorders: Yes Hx Family Respiratory Disorders: Yes Hx Family Cancer: Yes Medications & Allergies Acetaminophen/Butalbital/Caffe [Fioricet] 1 tab PO TID PRN 11/26/18 [History] Bifidobacterium Infantis [Align] 4 mg PO DAILY 11/26/18 [History] Calcium Carbonate/Vitamin D3 [Calcium 500 + Vit D Caplet] 1 tab PO DAILY 9 [History] Cetirizine HCl [24Hour Allergy] 10 mg PO DAILY 11/26/18 [History] Dicyclomine [Bentyl] 10 mg PO QID PRN 11/26/18 [History] Docusate Sodium [Dulcolax Stool Softener] 200 mg PO TID PRN 11/26/18 [History] Ergocalciferol (VITAMIN D2) [Drisdol (50,000 Unit)] 50,000 unit PO FR 11/26/18 [History] Fluticasone Propionate Nasal [Flonase] 1 spray NS DAILY 11/26/18 [History] Fluticasone/Vilanterol [Breo Ellipta 100-25 Mcg INH] 1 puff IH DAILY 11/26/18 [History] Furosemide [Lasix] 20 - 40 mg PO DAILY PRN 11/26/18 [History] Hydrocortisone 2.5% CREAM [Cortaid] 1 appl TP BID PRN 11/26/18 [History] Isosorbide MONOnitrate (24 HR) [Imdur] 60 mg PO QAM 11/26/18 [History] Levalbuterol Tartrate [Xopenex Hfa] 2 puff IH Q6H PRN 11/26/18 [History] Melatonin 10 mg PO HS PRN 11/26/18 [History] Metoprolol XL (24 HR) Succ [Toprol Xl] 50 mg PO DAILY 11/26/18 [History] Montelukast [Singulair] 10 mg PO HS 11/26/18 [History] Multivit-Min/Iron/Folic Acid/K [Adults Multivitamin Caplet] 1 tab PO DAILY 11/26/18 [History] Nitroglycerin [Nitrostat] 0.4 mg SL Q5MIN PRN 11/26/18 [History] Ondansetron ODT [Zofran ODT] 4 mg SL Q8HR PRN 11/26/18 [History] Pantoprazole Sodium [Protonix] 40 mg PO DAILY 11/26/18 [History] Prazosin [Minipress] 2 mg PO HS 11/26/18 [History] Rosuvastatin [Crestor] 20 mg PO QAM 11/26/18 [History] Sucralfate [Carafate] 1 gm PO TID 11/26/18 [History] lamoTRIgine [Lamictal] 100 mg PO BID 11/26/18 [History] raNITIdine HCl [Ranitidine HCl] 300 mg PO HS 11/26/18 [History] Albuterol Neb [Proventil Neb] 2.5 mg IH TID PRN 03/16/19 [History] Amitriptyline HCl 100 mg PO HS 03/16/19 [History] Benzonatate [Tessalon] 200 mg PO TID PRN 03/16/19 [History] Carboxymethylcellulose Sodium [Refresh Tears] 2 drop BOTH EYES BID PRN 03/16/19 [History] Celecoxib [Celebrex] 200 mg PO BID PRN 03/16/19 [History] Chlorzoxazone 500 mg PO QID PRN 03/16/19 [History] Ciclopirox [Penlac] 1 appl TP DAILY PRN 03/16/19 [History] Diclofenac Sodium [Voltaren] 2 gm TP TID PRN 03/16/19 [History] Fexofenadine HCl 180 mg PO QAM PRN 03/16/19 [History] Galcanezumab-Gnlm [Emgality] 120 mg SQ QMONTH 03/16/19 [History] HYDROcodone/Acet 5/325 mg [Sabattus 5-325 mg] 1 tab PO TID PRN 03/16/19 [History] Ibuprofen [Ibu] 800 mg PO TID PRN 03/16/19 [History] Ketotifen Fumarate [Zaditor] 1 drop BOTH EYES DAILY 03/16/19 [History] Levocetirizine Dihydrochloride [Allergy Relief (Xyzal)] 5 mg PO DAILY 03/16/19 [History] Lisinopril [Zestril] 5 mg PO DAILY 03/16/19 [History] Meclizine [Antivert] 12.5 - 25 mg PO TID PRN 03/16/19 [History] Memantine HCl 10 mg PO BID 03/16/19 [History] Metformin HCl [Fortamet] 1,000 mg PO QPM 03/16/19 [History] Mirtazapine [Remeron] 7.5 - 15 mg PO HS 03/16/19 [History] Mupirocin [Bactroban Oint] 1 appl TP TID PRN 03/16/19 [History] Naproxen [Naprosyn] 500 mg PO DAILY PRN 03/16/19 [History] Plecanatide [Trulance] 3 mg PO DAILY PRN 03/16/19 [History] Prochlorperazine Maleate [Compazine] 10 mg PO Q8H PRN 03/16/19 [History] Scopolamine Patch [Transderm-Scop] 1.5 mg TD Q72H PRN 03/16/19 [History] Terbinafine HCl [Terbinafine] 1 appl TP DAILY PRN 03/16/19 [History] Tiotropium [place] [Spiriva Respimat] 2 puff IH DAILY 03/16/19 [History] Topiramate 50 mg PO BID 03/16/19 [History] Venlafaxine [Effexor] 75 mg PO DAILY 03/16/19 [History] Zolpidem [Ambien] 5 mg PO HS 03/16/19 [History] dilTIAZem HCl [Diltiazem 24Hr ER] 120 mg PO DAILY 03/16/19 [History] hydrOXYzine HCl [Hydroxyzine HCl] 50 mg PO BID PRN 03/16/19 [History] Allergy/AdvReac Type Severity Reaction Status Date / Time fluconazole [From Diflucan] Allergy Seizure Verified 06/17/18 11:11 fluoxetine [From Prozac] Allergy Difficulty Verified 06/17/18 11:11 Breathing Sulfa (Sulfonamide Allergy Rash Verified 06/17/18 11:11 Antibiotics) sumatriptan [From Imitrex] Allergy Rash Verified 06/17/18 11:11 Review of Systems Constitutional: Denies: fever, chills, weakness, weight change Eyes: Denies: eye pain, vision change Ears, Nose, Throat: Denies: ear pain, throat pain, dental pain, hearing loss, congestion Cardiovascular: Denies: chest pain, palpitations, dyspnea on exertion Respiratory: Denies: cough, dyspnea, wheezes Gastrointestinal: Denies: abdominal pain, nausea, vomiting, diarrhea, constipation Genitourinary female: Denies: urgency, dysuria, frequency, abnormal menses, dyspareunia Musculoskeletal: Reports: other Integumentary: Denies: rash, lesions, pruritus Neurological: Reports: weakness, paresthesias Endocrine: Denies: fatigue, heat or cold intolerance Hematologic/Lymphatic: Denies: easy bruising, lymphadenopathy Allergic/Immunologic: Denies: urticaria, itchy eyes Psychiatry Exam - Constitutional Vitals: Temp Pulse Resp BP Pulse Ox 97.7 F 85 17 143/77 97 03/17/19 11:14 03/17/19 11:14 03/17/19 11:14 03/17/19 11:14 03/17/19 11:14 General appearance: obese - Musculoskeletal Gait: other Station: relaxed Strength & Tone: severe weakness - Psychiatric Patient Orientation: Yes Person, Yes Time, Yes Place Level of alertness: Alert Behavior: calm, cooperative Psychomotor activity: Normal Eye Contact: Maintains Eye Contact Mood Description: Anxious Affect description: congruent with mood Speech Volume: Normal Speech pattern: normal rate, normal rhythm, normal tone, fluent, spontaneous Language & Vocabulary: consistent with education Thought Process: Linear, Goal Oriented Thought Content: No Suicidal ideation, No Homicidal ideation, No Overt delusions Perceptual Disturbances: No Auditory hallucinations, No Visual hallucinations Attention Span Ability: Capable of Focused Attention Memory Description: Grossly Intact Patient Reliability: Reliable Historian Fund of knowledge: Yes abstraction ability, Yes aware of current events Intelligence Estimate: Average Judgment: Fair Insight: Partial Results - Labs Labs: Laboratory Last Values WBC 7.9 K/mcL (4.3-11.1) 03/17/19 04:23 RBC 4.53 M/mcL (3.82-4.97) 03/17/19 04:23 Hgb 13.6 g/dL (11.5-15.4) 03/17/19 04:23 Hct 42.7 % (35.3-44.9) 03/17/19 04:23 MCV 94.3 fL (83.0-100.0) 03/17/19 04:23 MCH 30.0 pg (28.0-33.3) 03/17/19 04:23 MCHC 31.9 g/dL (31.6-35.5) 03/17/19 04:23 RDW 13.7 % (11.5-14.5) 03/17/19 04:23 Plt Count 241 K/mcL (140-400) 03/17/19 04:23 MPV 10.6 fL (9.4-12.4) 03/17/19 04:23 PT 12.2 Seconds (9.4-12.1) H 03/17/19 04:00 INR 1.1 03/17/19 04:00 APTT 34.5 Seconds (26.0-36.0) 03/17/19 04:00 Sodium 133 mEq/L (136-145) L 03/17/19 04:00 Potassium 3.7 mEq/L (3.5-5.1) 03/17/19 04:00 Chloride 105 mEq/L (98-107) 03/17/19 04:00 Carbon Dioxide 24 mEq/L (23-29) 03/17/19 04:00 BUN 21 mg/dL (6-20) H 03/17/19 04:00 0.67 mg/dL (0.60-1.20) 03/17/19 04:00 Est GFR ( Amer) > 60 (> 60) 03/17/19 04:00 Est GFR (Non-Af Amer) > 60 (> 60) 03/17/19 04:00 31 (6-26) H 03/17/19 04:00 Glucose 164 mg/dL (70-105) H 03/17/19 04:00 POC Glucose 133 mg/dL (70-99) H 03/16/19 14:48 283 (280-300) 03/17/19 04:00 Calcium 9.1 mg/dL (8.6-10.3) 03/17/19 04:00 Phosphorus 4.4 mg/dL (2.7-4.5) 03/17/19 04:00 Magnesium 2.1 mg/dL (1.6-2.6) 03/17/19 04:00 0.5 mg/dL (0.3-1.0) 03/17/19 04:00 0.2 mg/dL (0.0-0.2) 03/16/19 10:55 0.4 mg/dL (0.0-1.2) 03/16/19 10:55 AST 46 Units/L (13-39) H 03/17/19 04:00 ALT 71 Units/L (7-52) H 03/17/19 04:00 88 Units/L (34-104) 03/17/19 04:00 < 0.03 ng/mL (< 0.04) 03/16/19 10:55 6.5 g/dL (6.4-8.9) 03/17/19 04:00 4.1 g/dL (3.5-5.7) 03/17/19 04:00 2.4 g/dL (2.4-3.5) 03/17/19 04:00 1.7 (1.1-2.2) 03/17/19 04:00 Triglycerides 371 mg/dL (< 150) H 03/17/19 04:00 Cholesterol 166 mg/dL (< 200) 03/17/19 04:00 LDL Cholesterol, Calc 56 mg/dL (0-99) 03/17/19 04:00 VLDL Cholesterol, Calc 74 mg/dL (< 31) H 03/17/19 04:00 36 mg/dL (40-59) L 03/17/19 04:00 4.6 (0-4.9) 03/17/19 04:00 Yellow (Yellow) 03/17/19 09:26 Clear (Clear) 03/17/19 09:26 5.5 pH Units (5.0-8.0) 03/17/19 09:26 Ur Specific [place] 1.021 (1.010-1.025) 03/17/19 09:26 Negative mg/dL (Neg-Trace) 03/17/19 09:26 Normal mg/dL (Normal) 03/17/19 09: Negative mg/dL (Negative) 03/17/19 09:26 Moderate (Negative) H 03/17/19 09:26 Negative (Negative) 03/17/19 09:26 Negative (Negative) 03/17/19 09:26 Normal mg/dL (Normal) 03/17/19 09:26 Ur Leukocyte Esterase Small (Negative) H 03/17/19 09:26 15-30 per hpf (0-3) H 03/17/19 09:26 5-15 per hpf (0-3) H 03/17/19 09:26 Ur Squamous Epith Cells Moderate per lpf (None-Few) H 03/17/19 09:26 None Seen per hpf (None-Few) 03/17/19 09:26 Hyaline Casts None Seen per lpf (None-Few) 03/17/19 09:26 Ur Culture Indicated? NO (NO) 03/16/19 12:54 Negative ng/mL (Lpdqpc=474) 03/16/19 12:54 Ur Barbiturates Screen Positive ng/mL (Acvlgf=501) H 03/16/19 12:54 Ur Phencyclidine Scrn Negative ng/mL (Cutoff=25) 03/16/19 12:54 Ur Amphetamines Screen Negative ng/mL (Lxcfwp=7027) 03/16/19 12:54 U Benzodiazepines Scrn Negative ng/mL (Kbwmfl=602) 03/16/19 12:54 Negative ng/mL (Cutoff= 300) 03/16/19 12:54 U Marijuana (THC) Screen Negative ng/mL (Cutoff = 50) 03/16/19 12:54 Ur Drug Screen Interp See Below 03/16/19 12:54 - Impressions Impressions Brain MRI 03/16/19 14:00 IMPRESSION: 1. No evidence of an acute infarct. 2. Mild chronic microvascular white matter ischemic disease, unchanged. 3. 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 D/ / 03/16/2019 22:04:06 Sony Nicholas MD / [facility] Interpreting Provider: Sony Nicholas MD Consult Discharge Plan - Plan Referrals: Zach Disla MD [Primary Care Provider] -
[2019-03-17] MEDS ORDERED: Albuterol 2.5 MG/3 ML NEBULIZER IH PRN (15:48)
[2019-03-17] MEDS ORDERED: Artificial Tears SOLN 15 ML BOTTLE BOTH EYES PRN (15:48)
--- NOTE | 2019-03-17 15:59 | Internal Med Progress Note ---
Hospitalist Progress Note - Encounter Date of Encounter: 03/17/19 Time of Encounter: 15:59 - Subjective Interval History: Patient was seen and examined at bedside patient states that she has difficulty moving her left side I did discuss MRI findings no evidence of stroke at this point suspect possible conversion disorder. We will consult psychiatry as well as PT and OT. Patient verbalized understanding of treatment plan - Exam Vitals: Temp Pulse Resp BP Pulse Ox 97.7 F 85 17 143/77 97 03/17/19 11:14 03/17/19 11:14 03/17/19 11:14 03/17/19 11:14 03/17/19 11:14 Exam: Skin: Free of rash and discoloration. Eyes: Sclera is white. There is no discharge from eyes. ENMT: Oral/pharyngeal mucosa is normal in appearance. There is no discharge from nose or ears. Respiratory: Normal breath sounds with no crackles and wheezes bilaterally. CV: Heart is regular with no gallop or murmur. GI: Abdomen is f obese and soft with no palpable mass or visceromegaly. : There is no tenderness in patient's flanks bilaterally. Neuro exam: He has good strength on the right side left side is weak He has normal eye movements. Psychiatric: He has normal affect. His thought process is appropriate to the situation. - Assessment and Plan (1) Breast cancer Current Visit: No Status: Chronic (2) COPD (chronic obstructive pulmonary disease) Current Visit: No Status: Chronic Assessment and Plan: Table at this time continue bronchodilators oxygen as needed (3) GERD (gastroesophageal reflux disease) Current Visit: No Status: Chronic Assessment and Plan: Continue with PPI (4) Tobacco abuse Current Visit: No Status: Chronic Assessment and Plan: Encourage patient to stop smoking and nicotine patch as needed (5) HTN (hypertension) Current Visit: No Status: Chronic Assessment and Plan: we will continue home medication, continue to monitor vital signs and adjust antihypertensive regimen if indicated (6) History of pseudoseizure Current Visit: Yes Status: Acute Assessment and Plan: neurology was consulted, the patient follow up with neurology as an outpatient Continue with seizure precautions Ativan as needed no seizures noted at this time (7) Transient cerebral ischemia Current Visit: Yes Status: Acute Assessment and Plan: MRI of brain with nothing acute continues to experience left-sided weakness neurology has been consulted suspect possible conversion disorder. Patient will be evaluated by psychiatry Follow-up PT and OT she may need rehabilitation -follow-up with neurology as outpatient 3-6 weeks * (8) Stroke-like symptoms Current Visit: Yes Status: Acute Assessment and Plan: continues to experience left-sided weakness MRI of brain with nothing acute continues to experience left-sided weakness neurology has been consulted suspect possible conversion disorder. Patient will be evaluated by psychiatry Follow-up PT and OT she may need rehabilitation -follow-up with neurology as outpatient 3-6 weeks * (9) Polypharmacy Current Visit: Yes Status: Acute Assessment and Plan: Review of home medication with pharmacist reveals multiple repetitions of drugs in the same class she has up to 5 NSAIDs listed. Will need review med list prior to discharge - Time Spent with Patient Total time spent is greater than 50% in coordination of care (as documented) at patient's floor/unit and/or counseling patient: Internal Medicine: Result - Labs CBC & Chem 7: 03/17/19 04:23 03/17/19 04:00 Labs: Short CBC 03/17/19 Range/Units 04:23 WBC 7.9 (4.3-11.1) K/mcL Hgb 13.6 (11.5-15.4) g/dL Hct 42.7 (35.3-44.9) % Plt Count 241 (140-400) K/mcL BMP 03/17/19 04:00 Sodium 133 L Potassium 3.7 Chloride 105 Carbon Dioxide 24 BUN 21 H Creatinine 0.67 Glucose 164 H Calcium 9.1 Liver Function 03/17/19 Range/Units 04:00 Total Bilirubin 0.5 (0.3-1.0) mg/dL AST 46 H (13-39) Units/L ALT 71 H (7-52) Units/L Alkaline Phosphatase 88 (34-104) Units/L Albumin 4.1 (3.5-5.7) g/dL Urine 03/17/19 Range/Units 09:26 Urine Color Yellow (Yellow) Urine Clarity Clear (Clear) Urine pH 5.5 (5.0-8.0) pH Units Ur Specific [place] 1.021 (1.010-1.025) Urine Protein Negative (Neg-Trace) mg/dL Urine Glucose (UA) Normal (Normal) mg/dL - ABG Interpretation ABG results: PT/INR, D-dimer PT 12.2 Seconds (9.4-12.1) H 05/22/19 04:00 - Impressions Impressions Brain MRI 03/16/19 14:00 IMPRESSION: 1. No evidence of an acute infarct. 2. Mild chronic microvascular white matter ischemic disease, unchanged. 3. 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 D/ / 03/16/2019 22:04:06 Sony Nicholas MD / geovany Interpreting Provider: Sony Nicholas MD Consult Discharge Plan - Plan Referrals: Zach Disla MD [Primary Care Provider] - (2) COPD (chronic obstructive pulmonary disease) Qualifiers: COPD type: unspecified COPD Qualified Code(s): J44.9 - Chronic obstructive pulmonary disease, unspecified (3) GERD (gastroesophageal reflux disease) Qualifiers: Esophagitis presence: with esophagitis Qualified Code(s): K21.0 - Gastro- esophageal reflux disease with esophagitis (5) HTN (hypertension) Qualifiers: Hypertension type: essential hypertension Qualified Code(s): I10 - Essential (primary) hypertension (7) Transient cerebral ischemia Qualifiers: Transient cerebral ischemia type: unspecified Qualified Code(s): G45.9 - Transient cerebral ischemic attack, unspecified
--- NOTE | 2019-03-17 16:19 | Neurology Progress Note ---
Date of Encounter: 03/17/19 Time of Encounter: 16:17 Assessment and Plan (1) Stroke-like symptoms Current Visit: Yes Status: Acute MRI of the brain was discussed with the patient and her who is known to me from previous office visits explained that no evidence of any stroke at this time she does have significant behavioral issues in the past he dominantly stress and depression at the same time also has a degenerative cervical spine disease though she did that should not cause that much weakness but for that neuropathic pain we can try her on some gabapentin to take it on a regular basis Suggest a follow-up psychiatric recommendation from neurology standpoint patient is stable Could be discharged to the rehabilitation or home depending on PT recommendations We will follow her up as an outpatient in 3-6 weeks Subjective Principal diagnosis: stroke like sx; most likely conversion disorder Interval history: Patient seemed to be doing better is still having some weakness in complaining of pain and paresthesias in the left upper and lower extremities now more pain and paresthesias than the weakness MRI of the brain has been negative for any acute infarct shows chronic changes Objective - Constitutional Vitals: Temp Pulse Resp BP Pulse Ox 98.0 F 83 18 132/86 95 03/17/19 15:57 03/17/19 15:57 03/17/19 15:57 03/17/19 15:57 03/17/19 15:57 - Neurological Exam Motor Examination: Present: grossly full strength in all extremities Results - Laboratory Findings CBC and BMP: 03/17/19 04:23 03/17/19 04:00 Abnormal lab findings: Abnormal lab results Hct 45.2 % (35.3-44.9) H 03/16/19 10:55 PT 12.2 Seconds (9.4-12.1) H 03/17/19 04:00 Sodium 133 mEq/L (136-145) L 03/17/19 04:00 BUN 21 mg/dL (6-20) H 03/17/19 04:00 31 (6-26) H 03/17/19 04:00 Glucose 164 mg/dL (70-105) H 03/17/19 04:00 POC Glucose 133 mg/dL (70-99) H 03/16/19 14:48 AST 46 Units/L (13-39) H 03/17/19 04:00 ALT 71 Units/L (7-52) H 03/17/19 04:00 111 Units/L (34-104) H 03/16/19 10:55 2.1 g/dL (2.4-3.5) L 03/16/19 10:55 2.3 (1.1-2.2) H 03/16/19 10:55 Triglycerides 371 mg/dL (< 150) H 03/17/19 04:00 VLDL Cholesterol, Calc 74 mg/dL (< 31) H 03/17/19 04:00 36 mg/dL (40-59) L 03/17/19 04:00 Ur Specific [place] 1.008 (1.010-1.025) L 03/16/19 12:54 Moderate (Negative) H 03/17/19 09:26 Ur Leukocyte Esterase Small (Negative) H 03/17/19 09:26 15-30 per hpf (0-3) H 03/17/19 09:26 5-15 per hpf (0-3) H 03/17/19 09:26 Ur Squamous Epith Cells Moderate per lpf (None-Few) H 03/17/19 09:26 Ur Barbiturates Screen Positive ng/mL (Fusldw=795) H 03/16/19 12:54 Consult Discharge Plan - Plan Referrals: Zach Disla MD [Primary Care Provider] -
[2019-03-17] MEDS: lamoTRIgine 100 MG TABLET PO SCH (20:27)
[2019-03-18] MEDS: Ketorolac 15 MG/ML VIAL IVP PRN ×2 (02:38→09:30)
[2019-03-18] MEDS: (Fluticasone/Vilanterol [Breo Ellipta 100-25 Mcg Inh] IH SCH (08:32)
[2019-03-18] MEDS: Isosorbide MONOnitrate (24 HR) 60 MG TAB.ER.24H PO SCH (09:29)
[2019-03-18] MEDS: Aspirin 81 MG TAB.CHEW PO SCH (09:29)
[2019-03-18] MEDS: lamoTRIgine 100 MG TABLET PO SCH ×2 (09:29→20:12)
[2019-03-18] MEDS: Venlafaxine XR (24 HR) 150 MG CAP.ER.24H PO SCH (09:29)
[2019-03-18] MEDS: Diltiazem CD (24hr) 120 MG CAPSULE PO SCH (09:29)
--- NOTE | 2019-03-18 10:18 | Electrocardiograph Report ---
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
--- NOTE | 2019-03-18 15:29 | Internal Med Progress Note ---
Hospitalist Progress Note - Encounter Date of Encounter: 03/18/19 Time of Encounter: 15:26 - Subjective Interval History: Reason was seen and examined at bedside currently she has multiple complaints including she has a migraine as well as all over her numbness and tingling. I spoke with her significant other who is at bedside he is concerned about medi cation list. I advised him that medication list has been reviewed with the pharmacist and that she has over 55 medications listed as her home medications. He is concerned about her receiving her blood pressure medication I advised him that we did resume all of her essential medications including blood pressure and psychiatric medications. I informed patient I would give her medication for her migraine. She was evaluated by PT and OT recommending ECF placement currently telephonic nurse case manager is working on placement which we will possibly take place next week patient and significant other verbalized understanding. - Exam Vitals: Temp Pulse Resp BP Pulse Ox 97.7 F 98 15 143/104 97 03/18/19 11:30 03/18/19 11:30 03/18/19 11:30 03/18/19 11:30 03/18/19 11:30 Exam: Skin: Free of rash and discoloration. Eyes: Sclera is white. There is no discharge from eyes. ENMT: Oral/pharyngeal mucosa is normal in appearance. There is no discharge from nose or ears. Respiratory: Normal breath sounds with no crackles and wheezes bilaterally. CV: Heart is regular with no gallop or murmur. GI: Abdomen is flat and soft with no palpable mass or visceromegaly. : There is no tenderness in patient's flanks bilaterally. Neuro exam: He has good strength in upper and lower extremities. He has normal eye movements. Psychiatric: He has normal affect. His thought process is appropriate to the situation. - Assessment and Plan (1) Breast cancer Current Visit: No Status: Chronic (2) COPD (chronic obstructive pulmonary disease) Current Visit: No Status: Chronic Assessment and Plan: Bronchodilators as needed currently stable (3) GERD (gastroesophageal reflux disease) Current Visit: No Status: Chronic Assessment and Plan: Continue with PPI (4) Tobacco abuse Current Visit: No Status: Chronic Assessment and Plan: Encourage patient to stop smoking and nicotine patch as needed (5) HTN (hypertension) Current Visit: No Status: Chronic Assessment and Plan: we will continue home medication, continue to monitor vital signs and adjust antihypertensive regimen if indicated (6) History of pseudoseizure Current Visit: Yes Status: Acute Assessment and Plan: neurology was consulted, follow-up as outpatient 3-6 weeks (7) Transient cerebral ischemia Current Visit: Yes Status: Suspected Assessment and Plan: MRI of the brain negative for any acute infarct shows chronic changes Seen by neurology-no evidence of any stroke at this time she does have significant behavioral issues in the past he dominantly stress and depression at the same time also has a degenerative cervical spine disease though she did that should not cause that much weakness but for that neuropathic pain we can try her on some gabapentin to take it on a regular basis Psychiatry consulted (8) Stroke-like symptoms Current Visit: Yes Status: Acute Assessment and Plan: continues to experience left-sided weakness MRI of brain with nothing acute continues to experience left-sided weakness neurology has been consulted suspect possible conversion disorder. Patient will be evaluated by psychiatry Follow-up PT and OT she may need rehabilitation -follow-up with neurology as ou tpatient 3-6 weeks PT OT evaluated-recommending ECF * (9) Polypharmacy Current Visit: Yes Status: Acute Assessment and Plan: Patient Medrek with 55 medications with many duplicates including 5 different NSAIDS medication list reviewed with pharmacy-I had a long discussion with the patient and her C. difficile gather who is at bedside concerning in the importance of utilizing 1 primary care provider and how medications can interact and actually harm her. Patient verbalized understanding - Time Spent with Patient Total time spent is greater than 50% in coordination of care (as documented) at patient's floor/unit and/or counseling patient: Internal Medicine: Result - Labs CBC & Chem 7: 03/17/19 04:23 03/17/19 04:00 - ABG Interpretation ABG results: PT/INR, D-dimer PT 12.2 Seconds (9.4-12.1) H 03/17/19 04:00 Consult Discharge Plan - Plan Referrals: Zach Disla MD [Primary Care Provider] - (Appointment has been requested) (1) Breast cancer Qualifiers: Qualified Code(s): C50.919 - Malignant neoplasm of unspecified site of unspecified female breast (2) COPD (chronic obstructive pulmonary disease) Qualifiers: COPD type: unspecified COPD Qualified Code(s): J44.9 - Chronic obstructive pulmonary disease, unspecified (3) GERD (gastroesophageal reflux disease) Qualifiers: Esophagitis presence: with esophagitis Qualified Code(s): K21.0 - Gastro- esophageal reflux disease with esophagitis (5) HTN (hypertension) Qualifiers: Hypertension type: essential hypertension Qualified Code(s): I10 - Essential (primary) hypertension (7) Transient cerebral ischemia Qualifiers: Transient cerebral ischemia type: unspecified Qualified Code(s): G45.9 - Transient cerebral ischemic attack, unspecified
[2019-03-18] MEDS: Acetaminophen/Butalbital/CaffeineTABLET PO PRN (16:46)
[2019-03-18] MEDS: Nicotine 21 MG PATCH.TD24 TD SCH (16:47)
[2019-03-18] MEDS: *HR* LORazepam 0.5 MG TABLET PO PRN (17:50)
[2019-03-18] MEDS: Ondansetron 4 MG/2 ML VIAL IVP PRN (20:12)
[2019-03-18] MEDS ORDERED: NON-FORMULARY MEDICATION 1 EACH EACH (Melatonin 10 MG) PO PRN (23:16)
[2019-03-19] MEDS: *HR* LORazepam 0.5 MG TABLET PO PRN ×3 (01:14→20:08)
[2019-03-19] MEDS: Acetaminophen/Butalbital/CaffeineTABLET PO PRN ×3 (01:14→20:07)
[2019-03-19] MEDS: Ondansetron 4 MG/2 ML VIAL IVP PRN ×3 (08:07→23:38)
[2019-03-19] MEDS: lamoTRIgine 100 MG TABLET PO SCH ×2 (08:09→20:08)
[2019-03-19] MEDS: Metoprolol XL (24 HR) Succ 25 MG TAB.ER.24H PO SCH (08:09)
[2019-03-19] MEDS: Venlafaxine XR (24 HR) 150 MG CAP.ER.24H PO SCH (08:09)
[2019-03-19] MEDS: Aspirin 81 MG TAB.CHEW PO SCH (08:10)
[2019-03-19] MEDS: Nicotine 21 MG PATCH.TD24 TD SCH (08:10)
[2019-03-19] MEDS: Isosorbide MONOnitrate (24 HR) 60 MG TAB.ER.24H PO SCH (08:10)
[2019-03-19] MEDS: Diltiazem CD (24hr) 120 MG CAPSULE PO SCH (08:10)
--- NOTE | 2019-03-19 09:06 | Internal Med Progress Note ---
Hospitalist Progress Note - Encounter Date of Encounter: 03/19/19 Time of Encounter: 09:03 - Subjective Interval History: Patient seen and examined at bedside. Currently she is moving upper extremities bilat without any difficulty. Has full strength 5/5 bilat upper but lower left is still weak 3/5 Discussed that she will need to be here over the weekend for placement to rehab and requires further PT/OT/ She is a fall risk and is unable to be discharged at this time She will require greater than 2 midnights admission for placement and fall risk - Exam Vitals: Temp Pulse Resp BP Pulse Ox 97.6 F 72 18 149/110 95 03/19/19 07:15 03/19/19 07:15 03/19/19 07:15 03/19/19 07:15 03/19/19 07:15 Exam: Skin: Free of rash and discoloration. Eyes: Sclera is white. There is no discharge from eyes. ENMT: Oral/pharyngeal mucosa is normal in appearance. There is no discharge from nose or ears. Respiratory: Normal breath sounds with no crackles and wheezes bilaterally. CV: Heart is regular with no gallop or murmur. GI: Abdomen is flat and soft with no palpable mass or visceromegaly. : There is no tenderness in patient's flanks bilaterally. Neuro exam: He has good strength in upper and lower extremities. He has normal eye movements. Psychiatric: He has normal affect. His thought process is appropriate to the situation. - Assessment and Plan (1) Breast cancer Current Visit: No Status: Chronic (2) COPD (chronic obstructive pulmonary disease) Current Visit: No Status: Chronic Assessment and Plan: Bronchodilators as needed currently stable (3) GERD (gastroesophageal reflux disease) Current Visit: No Status: Chronic Assessment and Plan: Continue with PPI (4) Tobacco abuse Current Visit: No Status: Chronic Assessment and Plan: Encourage patient to stop smoking and nicotine patch as needed (5) HTN (hypertension) Current Visit: No Status: Chronic Assessment and Plan: we will continue home medication, continue to monitor vital signs and adjust antihypertensive regimen if indicated (6) History of pseudoseizure Current Visit: Yes Status: Acute Assessment and Plan: neurology was consulted, follow-up as outpatient 3-6 weeks (7) Transient cerebral ischemia Current Visit: Yes Status: Suspected Assessment and Plan: MRI of the brain negative for any acute infarct shows chronic changes Seen by neurology-no evidence of any stroke at this time she does have significant behavioral issues in the past he dominantly stress and depression at the same time also has a degenerative cervical spine disease though she did that should not cause that much weakness but for that neuropathic pain we can try her on some gabapentin to take it on a regular basis Psychiatry consulted-suspect conversion disorder-evaluated by PT OT recommending inpatient rehabilitation. Noted the patient's upper extremities have equal movement and strength continues to have weakness and left lower leg difficulty ambulating (8) Stroke-like symptoms Current Visit: Yes Status: Acute Assessment and Plan: continues to experience left-sided weakness MRI of brain with nothing acute continues to experience left-sided weakness neurology has been consulted suspect possible conversion disorder. Patient myra luated by psychiatry recommending increasing Effexor 250 mg daily as well as low-dose Ativan as needed Follow-up PT and OT she may need rehabilitation -follow-up with neurology as outpatient 3-6 weeks PT OT evaluated-recommending ECF * (9) Polypharmacy Current Visit: Yes Status: Acute Assessment and Plan: Patient Medrek with 55 medications with many duplicates including 5 different NSAIDS medication list reviewed with pharmacy-I had a long discussion with the patient and her significant other who is at bedside concerning in the importance of utilizing 1 primary care provider and how medications can interact and actually harm her. Patient verbalized understanding - Time Spent with Patient Total time spent is greater than 50% in coordination of care (as documented) at patient's floor/unit and/or counseling patient: Internal Medicine: Result - Labs CBC & Chem 7: 03/17/19 04:23 03/17/19 04:00 - ABG Interpretation ABG results: PT/INR, D-dimer PT 12.2 Seconds (9.4-12.1) H 03/17/19 04:00 Consult Discharge Plan - Plan Referrals: Zach Disla MD [Primary Care Provider] - 03/25/19 10:15 am () (1) Breast cancer Qualifiers: Qualified Code(s): C50.919 - Malignant neoplasm of unspecified site of unspecified female breast (2) COPD (chronic obstructive pulmonary disease) Qualifiers: COPD type: unspecified COPD Qualified Code(s): J44.9 - Chronic obstructive pulmonary disease, unspecified (3) GERD (gastroesophageal reflux disease) Qualifiers: Esophagitis presence: with esophagitis Qualified Code(s): K21.0 - Gastro- esophageal reflux disease with esophagitis (5) HTN (hypertension) Qualifiers: Hypertension type: essential hypertension Qualified Code(s): I10 - Essential (primary) hypertension (7) Transient cerebral ischemia Qualifiers: Transient cerebral ischemia type: unspecified Qualified Code(s): G45.9 - Transient cerebral ischemic attack, unspecified
[2019-03-19 09:44] LABS: Estimated Average Glucose 180 mg/dl; Hemoglobin A1C 7.9 %
[2019-03-19] MEDS: (Fluticasone/Vilanterol [Breo Ellipta 100-25 Mcg Inh] IH SCH (11:27)
[2019-03-19] MEDS: (Tiotropium Bromide [Spiriva Respimat] 2 PUFF) IH SCH (12:07)
[2019-03-19] MEDS ORDERED: Ketorolac 15 MG/ML VIAL IVP ONE (20:16)
[2019-03-19] MEDS: Melatonin 3 MG TABLET PO PRN ×2 (23:39)
[2019-03-20] MEDS: Ondansetron 4 MG/2 ML VIAL IVP PRN ×2 (08:58→17:16)
[2019-03-20] MEDS: lamoTRIgine 100 MG TABLET PO SCH ×2 (08:59→20:11)
[2019-03-20] MEDS: Metoprolol XL (24 HR) Succ 25 MG TAB.ER.24H PO SCH (08:59)
[2019-03-20] MEDS: Nicotine 21 MG PATCH.TD24 TD SCH (08:59)
[2019-03-20] MEDS: Aspirin 81 MG TAB.CHEW PO SCH (08:59)
[2019-03-20] MEDS: (Fluticasone/Vilanterol [Breo Ellipta 100-25 Mcg Inh] IH SCH (09:00)
[2019-03-20] MEDS: Isosorbide MONOnitrate (24 HR) 60 MG TAB.ER.24H PO SCH (09:00)
[2019-03-20] MEDS: Venlafaxine XR (24 HR) 150 MG CAP.ER.24H PO SCH (09:00)
[2019-03-20] MEDS: Diltiazem CD (24hr) 120 MG CAPSULE PO SCH (09:00)
[2019-03-20] MEDS: (Tiotropium Bromide [Spiriva Respimat] 2 PUFF) IH SCH (09:00)
[2019-03-20] MEDS: *HR* LORazepam 0.5 MG TABLET PO PRN ×2 (09:09→20:11)
--- NOTE | 2019-03-20 09:50 | Internal Med Progress Note ---
Hospitalist Progress Note - Encounter Date of Encounter: 03/20/19 Time of Encounter: 09:49 - Subjective Interval History: Patient was seen and examined at bedside -she appears to have full range of motion of her upper extremities however continues to have weakness and her left lower leg. She is complaining of cough at night requesting cough syrup - Exam Vitals: Temp Pulse Resp BP Pulse Ox 97.8 F 78 18 124/83 94 03/20/19 07:48 03/20/19 07:48 03/20/19 07:48 03/20/19 07:48 03/20/19 07:48 Exam: Skin: Free of rash and discoloration. Eyes: Sclera is white. There is no discharge from eyes. ENMT: Oral/pharyngeal mucosa is normal in appearance. There is no discharge from nose or ears. Respiratory: Normal breath sounds with no crackles and wheezes bilaterally. CV: Heart is regular with no gallop or murmur. GI: Abdomen is f obese and soft with no palpable mass or visceromegaly. : There is no tenderness in patient's flanks bilaterally. Neuro exam: He has good strength on the right and upper left side lower left side is weak He has normal eye movements. Psychiatric: He has normal affect. His thought process is appropriate to the situation. - Assessment and Plan (1) Breast cancer Current Visit: No Status: Chronic (2) COPD (chronic obstructive pulmonary disease) Current Visit: No Status: Chronic Assessment and Plan: stable at this time continue bronchodilators oxygen as needed (3) GERD (gastroesophageal reflux disease) Current Visit: No Status: Chronic Assessment and Plan: Continue with PPI (4) Tobacco abuse Current Visit: No Status: Chronic Assessment and Plan: Encourage patient to stop smoking and nicotine patch as needed (5) HTN (hypertension) Current Visit: No Status: Chronic Assessment and Plan: we will continue home medication, continue to monitor vital signs and adjust antihypertensive regimen if indicated (6) History of pseudoseizure Current Visit: Yes Status: Acute Assessment and Plan: neurology was consulted, the patient follow up with neurology as an outpatient Continue with seizure precautions Ativan as needed no seizures noted at this time (7) Transient cerebral ischemia Current Visit: Yes Status: Suspected Assessment and Plan: MRI of brain with nothing acute continues to experience left-sided weakness neurology has been consulted suspect possible conversion disorder. evaluated by psychiatry see below Follow-up PT and OT she may need rehabilitation -follow-up with neurology as outpatient 3-6 weeks * (8) Stroke-like symptoms Current Visit: Yes Status: Acute Assessment and Plan: continues to experience left-sided weakness however improving able to move upper extremity but lower extremity continues to be weak MRI of brain with nothing acute continues to experience left-sided weakness neurology has been consulted suspect possible conversion disorder. Evaluated by psychiatry recommending increasing Effexor 250 mg by mouth daily will need follow-up as outpatient Follow-up PT and OT she may need rehabilitation -follow-up with neurology as outpatient 3-6 weeks * (9) Polypharmacy Current Visit: Yes Status: Acute Assessment and Plan: Patient Medrek with 55 medications with many duplicates including 5 different NSAIDS medication list reviewed with pharmacy-I had a long discussion with the patient and her significant other who is at bedside concerning in the importance of utilizing 1 primary care provider and how medications can interact and actually harm her. Patient verbalized understanding - Time Spent with Patient Total time spent is greater than 50% in coordination of care (as documented) at patient's floor/unit and/or counseling patient: Internal Medicine: Result - Labs CBC & Chem 7: 03/17/19 04:23 03/17/19 04:00 - ABG Interpretation ABG results: PT/INR, D-dimer PT 12.2 Seconds (9.4-12.1) H 03/17/19 04:00 Consult Discharge Plan - Plan Referrals: Zach Disla MD [Primary Care Provider] - 03/25/19 10:15 am () (1) Breast cancer Qualifiers: Qualified Code(s): C50.919 - Malignant neoplasm of unspecified site of unspecified female breast (2) COPD (chronic obstructive pulmonary disease) Qualifiers: COPD type: unspecified COPD Qualified Code(s): J44.9 - Chronic obstructive pulmonary disease, unspecified (3) GERD (gastroesophageal reflux disease) Qualifiers: Esophagitis presence: with esophagitis Qualified Code(s): K21.0 - Gastro- esophageal reflux disease with esophagitis (5) HTN (hypertension) Qualifiers: Hypertension type: essential hypertension Qualified Code(s): I10 - Essential (primary) hypertension (7) Transient cerebral ischemia Qualifiers: Transient cerebral ischemia type: unspecified Qualified Code(s): G45.9 - Transient cerebral ischemic attack, unspecified
[2019-03-20] MEDS: Acetaminophen/Butalbital/CaffeineTABLET PO PRN (15:09)
[2019-03-20] MEDS: Budesonide/Formoterol 160/4.5 1 PUFF INH IH SCH (20:27)
[2019-03-20] MEDS: Melatonin 3 MG TABLET PO PRN (21:36)
[2019-03-20] MEDS ORDERED: Ketorolac 15 MG/ML VIAL IVP ONE (22:18)
[2019-03-21 05:42] LABS: Basophils % 0.6 %; Eosinophils # 0.1 K/mcL (0.0-0.6); Eosinophils % 1.9 %; Hematocrit 41.8 % (35.3-44.9); Hemoglobin 13.4 g/dL (11.5-15.4); Immature Granulocytes % 0.5 % (0-4); Lymphocytes # 1.9 K/mcL (0.6-4.6); Mean Corpuscular HGB Conc 32.1 g/dL (31.6-35.5); Mean Corpuscular Hemoglobin 29.6 pg (28.0-33.3); Mean Corpuscular Volume 92.5 fL (83.0-100.0); Mean Platelet Volume 9.8 fL (9.4-12.4); Monocytes # 0.5 K/mcL (0.0-1.3); Neutrophils # 3.8 K/mcL (1.6-8.9); Platelet Count 220 K/mcL (140-400); Red Blood Count 4.52 M/mcL (3.82-4.97); Red Cell Distribution Width 13.1 % (11.5-14.5)
[2019-03-21 06:03] LABS: BUN/Creatinine Ratio 31 (6-26); Blood Urea Nitrogen 19 mg/dL (6-20); Calcium 9.7 mg/dL (8.6-10.3); Carbon Dioxide 24 mEq/L (23-29); Chloride 105 mEq/L (98-107); Glucose 135 mg/dL (70-105); Osmolality,Calculated 294 (280-300); Potassium 4.1 mEq/L (3.5-5.1); Sodium 140 mEq/L (136-145); eGFR For Non-African Americans > 60 (> 60)
[2019-03-21] MEDS: Budesonide/Formoterol 160/4.5 1 PUFF INH IH SCH (07:27)
[2019-03-21] MEDS: lamoTRIgine 100 MG TABLET PO SCH (09:41)
[2019-03-21] MEDS: Diltiazem CD (24hr) 120 MG CAPSULE PO SCH (09:42)
[2019-03-21] MEDS: Isosorbide MONOnitrate (24 HR) 60 MG TAB.ER.24H PO SCH (09:42)
[2019-03-21] MEDS: Metoprolol XL (24 HR) Succ 25 MG TAB.ER.24H PO SCH (09:42)
[2019-03-21] MEDS: Nicotine 21 MG PATCH.TD24 TD SCH (09:42)
[2019-03-21] MEDS: *HR* LORazepam 0.5 MG TABLET PO PRN (09:42)
[2019-03-21] MEDS: Aspirin 81 MG TAB.CHEW PO SCH (09:42)
[2019-03-21] MEDS: Venlafaxine XR (24 HR) 150 MG CAP.ER.24H PO SCH (09:42)
[2019-03-21] MEDS ORDERED: Tiotropium 18 MCG inhalation IH SCH (10:00)
--- NOTE | 2019-03-21 11:22 | Internal Med Progress Note ---
Hospitalist Progress Note - Encounter Date of Encounter: 03/21/19 Time of Encounter: 11:22 - Exam Vitals: Temp Pulse Resp BP Pulse Ox 97.8 F 78 15 144/95 93 03/21/19 07:01 03/21/19 07:01 03/21/19 07:27 03/21/19 07:01 03/21/19 07:27 - Assessment and Plan (1) Breast cancer Current Visit: No Status: Chronic (2) COPD (chronic obstructive pulmonary disease) Current Visit: No Status: Chronic (3) GERD (gastroesophageal reflux disease) Current Visit: No Status: Chronic (4) Tobacco abuse Current Visit: No Status: Chronic (5) HTN (hypertension) Current Visit: No Status: Chronic (6) History of pseudoseizure Current Visit: Yes Status: Acute (7) Transient cerebral ischemia Current Visit: Yes Status: Suspected (8) Stroke-like symptoms Current Visit: Yes Status: Acute (9) Polypharmacy Current Visit: Yes Status: Acute - Time Spent with Patient Total time spent is greater than 50% in coordination of care (as documented) at patient's floor/unit and/or counseling patient: Internal Medicine: Result - Labs CBC & Chem 7: 03/21/19 05:13 03/21/19 05:13 Labs: Short CBC 03/21/19 Range/Units 05:13 WBC 6.4 (4.3-11.1) K/mcL Hgb 13.4 (11.5-15.4) g/dL Hct 41.8 (35.3-44.9) % Plt Count 220 (140-400) K/mcL Neutrophils # 3.8 (1.6-8.9) K/mcL BMP 03/21/19 05:13 Sodium 140 Potassium 4.1 Chloride 105 Carbon Dioxide 24 BUN 19 Creatinine 0.62 Glucose 135 H Calcium 9.7 - ABG Interpretation ABG results: PT/INR, D-dimer PT 12.2 Seconds (9.4-12.1) H 03/17/19 04:00 Consult Discharge Plan - Plan Referrals: Zach Disla MD [Primary Care Provider] - 03/25/19 10:15 am () (1) Breast cancer Qualifiers: Qualified Code(s): C50.919 - Malignant neoplasm of unspecified site of unspecified female breast (2) COPD (chronic obstructive pulmonary disease) Qualifiers: COPD type: unspecified COPD Qualified Code(s): J44.9 - Chronic obstructive pulmonary disease, unspecified (3) GERD (gastroesophageal reflux disease) Qualifiers: Esophagitis presence: with esophagitis Qualified Code(s): K21.0 - Gastro-esophageal reflux disease with esophagitis (5) HTN (hypertension) Qualifiers: Hypertension type: essential hypertension Qualified Code(s): I10 - Essential (primary) hypertension (7) Transient cerebral ischemia Qualifiers: Transient cerebral ischemia type: unspecified Qualified Code(s): G45.9 - Transient cerebral ischemic attack, unspecified
[2019-03-21 11:25] VITALS: BP 126/89
--- NOTE | 2019-03-21 14:41 | Discharge Summary ---
- NOTES TO OUTPATIENT PROVIDER Notes to Outpatient Provider: Presented with left-sided weakness CVA ruled out evaluated by neurology follow-up as outpatient. Evaluated by psychiatry suspect conversion disorder-Effexor changed to 150 mg [id number] with psychiatry as outpatient [facility]. Patient does have polypharmacy-reviewed with pharmacist patient had up to 5 different NSAIDs listed. Please review medications- Date of Encounter: 03/21/19 Time of Encounter: 14:34 - Discharge Diagnosis (1) Breast cancer Priority: Secondary Status: Chronic Qualifiers: Breast location: unspecified site of breast Estrogen receptor status: unspecified Patient sex: female Laterality: unspecified laterality Qualified Code(s): C50.919 - Malignant neoplasm of unspecified site of unspecified female breast (2) COPD (chronic obstructive pulmonary disease) Priority: Secondary Status: Chronic Qualifiers: COPD type: unspecified COPD Qualified Code(s): J44.9 - Chronic obstructive pulmonary disease, unspecified (3) GERD (gastroesophageal reflux disease) Priority: Secondary Status: Chronic Qualifiers: Esophagitis presence: with esophagitis Qualified Code(s): K21.0 - Gastro- esophageal reflux disease with esophagitis (4) Tobacco abuse Priority: Secondary Status: Chronic (5) HTN (hypertension) Priority: Secondary Status: Chronic Qualifiers: Hypertension type: essential hypertension Qualified Code(s): I10 - Essential (primary) hypertension (6) History of pseudoseizure Priority: Secondary Status: Acute (7) Transient cerebral ischemia Priority: Primary Status: Suspected Qualifiers: Transient cerebral ischemia type: unspecified Qualified Code(s): G45.9 - Transient cerebral ischemic attack, unspecified (8) Stroke-like symptoms Priority: Primary Status: Acute (9) Polypharmacy Priority: Secondary Status: Acute Hospital course: Ms. Su is a 53 year old female with multiple medical problems including cancer COPD CVA for myalgia GERD hypertension pseudoseizures who presented to [facility] ED with strokelike symptoms. Presented with left-sided hemiparesis prior to the onset of symptoms she did report headache and blurred vision. She does follow with neurology as an outpatient and has a history of pseudoseizures. Initial CT of head was unremarkable MRI with nothing acute stroke workup all negative-neurology recommending evaluation by psychiatry. Recommending continued aspirin and evaluation for PT and OT due to continued hemiparesis. Patient was evaluated by psychiatry recommending placing patient back on Effexor 150 mg extended release daily-patient was evaluated by PT OT recommending inpatient rehabilitation. During the stay patient gradually regained range of motion of upper and lower extremity. She has been able to ambulate in the hallway with her cane without any difficulty. She is able to perform her ADLs and was able to shower on her own today. She has been eating and drinking well. Patient is requesting to be discharged home she does have home health and can undergo outpatient physical therapy. Patient does have a history of polypharmacy-she was educated on the importance of reviewing her medications with her primary care. Patient will be discharged home with home health - Time Spent with Patient Total time spent providing and/or coordinating discharge services: - Discharge Medications Prescriptions: New Aspirin 81 mg PO DAILY #30 tab.chew Venlafaxine XR (24 HR) [Effexor Xr] 150 mg PO DAILY #30 cap.er.24h Amitriptyline [Elavil] 100 mg PO HS tablet Albuterol Neb [Proventil Neb] 2.5 mg IH TID PRN inhsol PRN Reason: Shortness Of Breath Metoprolol XL (24 HR) Succ [Toprol Xl] 25 mg PO DAILY #30 tab.er.24h Continued Ondansetron ODT [Zofran ODT] 4 mg SL Q8HR PRN PRN Reason: Nausea Sucralfate [Carafate] 1 gm PO TID Fluticasone/Vilanterol [Breo Ellipta 100-25 Mcg INH] 1 puff IH DAILY Calcium Carbonate/Vitamin D3 [Calcium 500 + Vit D Caplet] 1 tab PO DAILY Acetaminophen/Butalbital/Caffe [Fioricet] 1 tab PO TID PRN PRN Reason: Headache Montelukast [Singulair] 10 mg PO HS Isosorbide MONOnitrate (24 HR) [Imdur] 60 mg PO QAM Melatonin 10 mg PO HS PRN PRN Reason: Sleep lamoTRIgine [Lamictal] 100 mg PO BID Multivit-Min/Iron/Folic Acid/K [Adults Multivitamin Caplet] 1 tab PO DAILY Docusate Sodium [Dulcolax Stool Softener] 200 mg PO TID PRN PRN Reason: Constipation Fluticasone Propionate Nasal [Flonase] 1 spray NS DAILY Pantoprazole Sodium [Protonix] 40 mg PO DAILY Ergocalciferol (VITAMIN D2) [Drisdol (50,000 Unit)] 50,000 unit PO FR Rosuvastatin [Crestor] 20 mg PO QAM Nitroglycerin [Nitrostat] 0.4 mg SL Q5MIN PRN PRN Reason: Chest Pain Plecanatide [Trulance] 3 mg PO DAILY PRN PRN Reason: Edema Metformin HCl [Fortamet] 1,000 mg PO QPM Memantine HCl 10 mg PO BID Lisinopril [Zestril] 5 mg PO DAILY dilTIAZem HCl [Diltiazem 24Hr ER] 120 mg PO DAILY Tiotropium [place] [Spiriva Respimat] 2 puff IH DAILY Carboxymethylcellulose Sodium [Refresh Tears] 2 drop BOTH EYES BID PRN PRN Reason: Dry Eye(S) Discontinued raNITIdine HCl [Ranitidine HCl] 300 mg PO HS Metoprolol XL (24 HR) Succ [Toprol Xl] 50 mg PO DAILY HYDROcodone/Acet 5/325 mg [Byars 5-325 mg] 1 tab PO TID PRN PRN Reason: Pain Diclofenac Sodium [Voltaren] 2 gm TP TID PRN PRN Reason: Pain Topiramate 50 mg PO BID Scopolamine Patch [Transderm-Scop] 1.5 mg TD Q72H PRN PRN Reason: MOTION SICKNESS Prochlorperazine Maleate [Compazine] 10 mg PO Q8H PRN PRN Reason: NAUSEA/VOMITING Celecoxib [Celebrex] 200 mg PO BID PRN PRN Reason: Pain Amitriptyline HCl 100 mg PO HS Albuterol Neb [Proventil Neb] 2.5 mg IH TID PRN PRN Reason: Shortness Of Breath Venlafaxine [Effexor] 75 mg PO DAILY Naproxen [Naprosyn] 500 mg PO DAILY PRN PRN Reason: Pain Ibuprofen [Ibu] 800 mg PO TID PRN PRN Reason: Pain No Action Bifidobacterium Infantis [Align] 4 mg PO DAILY Prazosin [Minipress] 2 mg PO HS Levalbuterol Tartrate [Xopenex Hfa] 2 puff IH Q6H PRN PRN Reason: Shortness Of Breath Dicyclomine [Bentyl] 10 mg PO QID PRN PRN Reason: STOMACH PAIN/ INTESTINAL SPASM Cetirizine HCl [24Hour Allergy] 10 mg PO DAILY Hydrocortisone 2.5% CREAM [Cortaid] 1 appl TP BID PRN PRN Reason: Rash Furosemide [Lasix] 20 - 40 mg PO DAILY PRN PRN Reason: Edema Zolpidem [Ambien] 5 mg PO HS Terbinafine HCl [Terbinafine] 1 appl TP DAILY PRN PRN Reason: FUNGUS ON FEET Mirtazapine [Remeron] 7.5 - 15 mg PO HS Meclizine [Antivert] 12.5 - 25 mg PO TID PRN PRN Reason: Dizziness Levocetirizine Dihydrochloride [Allergy Relief (Xyzal)] 5 mg PO DAILY hydrOXYzine HCl [Hydroxyzine HCl] 50 mg PO BID PRN PRN Reason: Anxiety Galcanezumab-Gnlm [Emgality] 120 mg SQ QMONTH Fexofenadine HCl 180 mg PO QAM PRN PRN Reason: Allergy Symptoms Chlorzoxazone 500 mg PO QID PRN PRN Reason: NECK PAIN/HEADACHES Benzonatate [Tessalon] 200 mg PO TID PRN PRN Reason: Cough Ciclopirox [Penlac] 1 appl TP DAILY PRN PRN Reason: Rash Mupirocin [Bactroban Oint] 1 appl TP TID PRN PRN Reason: INFECTION Ketotifen Fumarate [Zaditor] 1 drop BOTH EYES DAILY Home Medications: Acetaminophen/Butalbital/Caffe [Fioricet] 1 tab PO TID PRN 11/26/18 [History] Bifidobacterium Infantis [Align] 4 mg PO DAILY 11/26/18 [History] Calcium Carbonate/Vitamin D3 [Calcium 500 + Vit D Caplet] 1 tab PO DAILY 11/26/18 [History] Cetirizine HCl [24Hour Allergy] 10 mg PO DAILY 11/26/18 [History] Dicyclomine [Bentyl] 10 mg PO QID PRN 11/26/18 [History] Docusate Sodium [Dulcolax Stool Softener] 200 mg PO TID PRN 11/26/18 [History] Ergocalciferol (VITAMIN D2) [Drisdol (50,000 Unit)] 50,000 unit PO FR 11/26/18 [History] Fluticasone Propionate Nasal [Flonase] 1 spray NS DAILY 11/26/18 [History] Fluticasone/Vilanterol [Breo Ellipta 100-25 Mcg INH] 1 puff IH DAILY 11/26/18 [History] Furosemide [Lasix] 20 - 40 mg PO DAILY PRN 11/26/18 [History] Hydrocortisone 2.5% CREAM [Cortaid] 1 appl TP BID PRN 11/26/18 [History] Isosorbide MONOnitrate (24 HR) [Imdur] 60 mg PO QAM 11/26/18 [History] Levalbuterol Tartrate [Xopenex Hfa] 2 puff IH Q6H PRN 11/26/18 [History] Melatonin 10 mg PO HS PRN 11/26/18 [History] Montelukast [Singulair] 10 mg PO HS 11/26/18 [History] Multivit-Min/Iron/Folic Acid/K [Adults Multivitamin Caplet] 1 tab PO DAILY 11/26/18 [History] Nitroglycerin [Nitrostat] 0.4 mg SL Q5MIN PRN 11/26/18 [History] Ondansetron ODT [Zofran ODT] 4 mg SL Q8HR PRN 11/26/18 [History] Pantoprazole Sodium [Protonix] 40 mg PO DAILY 11/26/18 [History] Prazosin [Minipress] 2 mg PO HS 11/26/18 [History] Rosuvastatin [Crestor] 20 mg PO QAM 11/26/18 [History] Sucralfate [Carafate] 1 gm PO TID 11/26/18 [History] lamoTRIgine [Lamictal] 100 mg PO BID 11/26/18 [History] Benzonatate [Tessalon] 200 mg PO TID PRN 03/16/19 [History] Carboxymethylcellulose Sodium [Refresh Tears] 2 drop BOTH EYES BID PRN 03/16/19 [History] Chlorzoxazone 500 mg PO QID PRN 03/16/19 [History] Ciclopirox [Penlac] 1 appl TP DAILY PRN 03/16/19 [History] Fexofenadine HCl 180 mg PO QAM PRN 03/16/19 [History] Galcanezumab-Gnlm [Emgality] 120 mg SQ QMONTH 03/16/19 [History] Ketotifen Fumarate [Zaditor] 1 drop BOTH EYES DAILY 03/16/19 [History] Levocetirizine Dihydrochloride [Allergy Relief (Xyzal)] 5 mg PO DAILY 03/16/19 [History] Lisinopril [Zestril] 5 mg PO DAILY 03/16/19 [History] Meclizine [Antivert] 12.5 - 25 mg PO TID PRN 03/16/19 [History] Memantine HCl 10 mg PO BID 03/16/19 [History] Metformin HCl [Fortamet] 1,000 mg PO QPM 03/16/19 [History] Mirtazapine [Remeron] 7.5 - 15 mg PO HS 03/16/19 [History] Mupirocin [Bactroban Oint] 1 appl TP TID PRN 03/16/19 [History] Plecanatide [Trulance] 3 mg PO DAILY PRN 03/16/19 [History] Terbinafine HCl [Terbinafine] 1 appl TP DAILY PRN 03/16/19 [History] Tiotropium [place] [Spiriva Respimat] 2 puff IH DAILY 03/16/19 [History] Zolpidem [Ambien] 5 mg PO HS 03/16/19 [History] dilTIAZem HCl [Diltiazem 24Hr ER] 120 mg PO DAILY 03/16/19 [History] hydrOXYzine HCl [Hydroxyzine HCl] 50 mg PO BID PRN 03/16/19 [History] Albuterol Neb [Proventil Neb] 2.5 mg IH TID PRN inhsol 03/21/19 [Rx] Amitriptyline [Elavil] 100 mg PO HS tablet 03/21/19 [Rx] Aspirin 81 mg PO DAILY #30 tab.chew 03/21/19 [Rx] Metoprolol XL (24 HR) Succ [Toprol Xl] 25 mg PO DAILY #30 tab.er.24h 03/21/19 [Rx] Venlafaxine XR (24 HR) [Effexor Xr] 150 mg PO DAILY #30 cap.er.24h 03/21/19 [Rx] Allergies/Adverse Reactions: Allergy/AdvReac Type Severity Reaction Status Date / Time fluconazole [From Diflucan] Allergy Seizure Verified 06/17/18 11:11 fluoxetine [From Prozac] Allergy Difficulty Verified 06/17/18 11:11 Breathing Sulfa (Sulfonamide Allergy Rash Verified 06/17/18 11:11 Antibiotics) sumatriptan [From Imitrex] Allergy Rash Verified 06/17/18 11:11 Date of admission: 03/19/19 16:58 Primary care physician: Zach Disla MD Consults: 03/16/19 12:43 Consult to Neurology [CONS] Stat Consulting Provider: Neurology [facility] Reason for Consult: Strokelike symptoms resolving/history of seizure and pseudoseizure [place] Black for Dr. Gonzalez Time Notified: 12:44 Call Completed: Yes 03/17/19 09:18 Consult to Psychiatry [CONS] Routine Consulting Provider: Psychiatry [facility] Reason consult: Other Other reason and/or additional details: possible conversion disorder Time Notified: 09:19 Call Completed: Yes 03/17/19 15:57 Consult to Physical Therapy [CONS] Routine Comment: Evaluate, develop and implement POC Reason for Consult: weakness Does patient have active BEDREST order?: No Is patient medically & hemodynamically stable?: Yes Patient assessed for mobility or mobilized this visit?: No 03/17/19 15:58 Consult to Occupational Therapy [CONS] Routine Comment: Evaluate, develop and implement POC Reason for Consult: weakness Does patient have active BEDREST order?: Yes Is patient medically & hemodynamically stable?: No Patient assessed for mobility or mobilized this visit?: Yes 03/19/19 07:52 Consult to [facility] [CONS] Routine Reason for SW Consult: PT/OT RECOMMEND SNF Discharging clinician: Mihaela Rosario Anticipated date of discharge: 03/21/19 - Constitutional Vitals: Temp Pulse Resp BP Pulse Ox 98.1 F 81 16 126/89 96 03/21/19 11:21 03/21/19 11:21 03/21/19 11:21 03/21/19 11:21 03/21/19 11:21 Exam: Skin: Free of rash and discoloration. Eyes: Sclera is white. There is no discharge from eyes. ENMT: Oral/pharyngeal mucosa is normal in appearance. There is no discharge from nose or ears. Respiratory: Normal breath sounds with no crackles and wheezes bilaterally. CV: Heart is regular with no gallop or murmur. GI: Abdomen is f obese and soft with no palpable mass or visceromegaly. : There is no tenderness in patient's flanks bilaterally. Neuro exam: He has good strength 4 He has normal eye movements. Psychiatric: He has normal affect. His thought process is appropriate to the situation. - Patient Status Disposition: Home Health Service Condition: Good Functional capacity at discharge: uses cane/walker Overall status at discharge: patient is back to baseline - Discharge Instructions Follow Up With: Zach Disla MD [Primary Care Provider] - 03/25/19 10:15 am () - Diet and Activity Activity: increase activity as tolerated Diet: advance to your usual diet
--- NOTE | 2019-03-21 15:08 | Physician Discharge Referral ---
Home Health/Hosp Referral Info Transfer to: Home Health Attending Provider: Paulina Rosario Provider in Charge Post Discharge: PCP - Diagnosis (1) Breast cancer Priority: Secondary Status: Chronic (2) COPD (chronic obstructive pulmonary disease) Priority: Secondary Status: Chronic (3) GERD (gastroesophageal reflux disease) Priority: Secondary Status: Chronic (4) Tobacco abuse Priority: Secondary Status: Chronic (5) HTN (hypertension) Priority: Secondary Status: Chronic (6) History of pseudoseizure Priority: Secondary Status: Acute (7) Transient cerebral ischemia Priority: Primary Status: Suspected (8) Stroke-like symptoms Priority: Primary Status: Acute (9) Polypharmacy Priority: Secondary Status: Acute - Respiratory Orders Smoking Cessation: Smoking cessation has been advised. For more information, call the [place] Tobacco Quit Line at 5-000-UXWX-NOW. - Diet/Nutrition Diet/Nutrition Orders: Mechanical Soft, No Added Salt (NICKI), No Concentrated Sweets - Activity Activity Orders: Up ad tristan - Services Needed Following services are medically necessary services: Nursing, Home Health Aide, Physical Therapy, Occupational Therapy - Transfer Medications Prescriptions: Aspirin 81 mg PO DAILY #30 tab.chew Venlafaxine XR (24 HR) [Effexor Xr] 150 mg PO DAILY #30 cap.er.24h Metoprolol XL (24 HR) Succ [Toprol Xl] 25 mg PO DAILY #30 tab.er.24h Home Medications: Acetaminophen/Butalbital/Caffe [Fioricet] 1 tab PO TID PRN 11/26/18 [History] Bifidobacterium Infantis [Align] 4 mg PO DAILY 11/26/18 [History] Calcium Carbonate/Vitamin D3 [Calcium 500 + Vit D Caplet] 1 tab PO DAILY 11/26/18 [History] Cetirizine HCl [24Hour Allergy] 10 mg PO DAILY 11/26/18 [History] Dicyclomine [Bentyl] 10 mg PO QID PRN 11/26/18 [History] Docusate Sodium [Dulcolax Stool Softener] 200 mg PO TID PRN 11/26/18 [History] Ergocalciferol (VITAMIN D2) [Drisdol (50,000 Unit)] 50,000 unit PO FR 11/26/18 [History] Fluticasone Propionate Nasal [Flonase] 1 spray NS DAILY 11/26/18 [History] Fluticasone/Vilanterol [Breo Ellipta 100-25 Mcg INH] 1 puff IH DAILY 11/26/18 [History] Furosemide [Lasix] 20 - 40 mg PO DAILY PRN 11/26/18 [History] Hydrocortisone 2.5% CREAM [Cortaid] 1 appl TP BID PRN 11/26/18 [History] Isosorbide MONOnitrate (24 HR) [Imdur] 60 mg PO QAM 11/26/18 [History] Levalbuterol Tartrate [Xopenex Hfa] 2 puff IH Q6H PRN 11/26/18 [History] Melatonin 10 mg PO HS PRN 11/26/18 [History] Montelukast [Singulair] 10 mg PO HS 11/26/18 [History] Multivit-Min/Iron/Folic Acid/K [Adults Multivitamin Caplet] 1 tab PO DAILY 11/26/18 [History] Nitroglycerin [Nitrostat] 0.4 mg SL Q5MIN PRN 11/26/18 [History] Ondansetron ODT [Zofran ODT] 4 mg SL Q8HR PRN 11/26/18 [History] Pantoprazole Sodium [Protonix] 40 mg PO DAILY 11/26/18 [History] Prazosin [Minipress] 2 mg PO HS 11/26/18 [History] Rosuvastatin [Crestor] 20 mg PO QAM 11/26/18 [History] Sucralfate [Carafate] 1 gm PO TID 11/26/18 [History] lamoTRIgine [Lamictal] 100 mg PO BID 11/26/18 [History] Benzonatate [Tessalon] 200 mg PO TID PRN 03/16/19 [History] Carboxymethylcellulose Sodium [Refresh Tears] 2 drop BOTH EYES BID PRN 03/16/19 [History] Chlorzoxazone 500 mg PO QID PRN 03/16/19 [History] Ciclopirox [Penlac] 1 appl TP DAILY PRN 03/16/19 [History] Fexofenadine HCl 180 mg PO QAM PRN 03/16/19 [History] Galcanezumab-Gnlm [Emgality] 120 mg SQ QMONTH 03/16/19 [History] Ketotifen Fumarate [Zaditor] 1 drop BOTH EYES DAILY 03/16/19 [History] Levocetirizine Dihydrochloride [Allergy Relief (Xyzal)] 5 mg PO DAILY 03/16/19 [History] Lisinopril [Zestril] 5 mg PO DAILY 03/16/19 [History] Meclizine [Antivert] 12.5 - 25 mg PO TID PRN 03/16/19 [History] Memantine HCl 10 mg PO BID 03/16/19 [History] Metformin HCl [Fortamet] 1,000 mg PO QPM 03/16/19 [History] Mirtazapine [Remeron] 7.5 - 15 mg PO HS 03/16/19 [History] Mupirocin [Bactroban Oint] 1 appl TP TID PRN 03/16/19 [History] Plecanatide [Trulance] 3 mg PO DAILY PRN 03/16/19 [History] Terbinafine HCl [Terbinafine] 1 appl TP DAILY PRN 03/16/19 [History] Tiotropium [place] [Spiriva Respimat] 2 puff IH DAILY 03/16/19 [History] Zolpidem [Ambien] 5 mg PO HS 03/16/19 [History] dilTIAZem HCl [Diltiazem 24Hr ER] 120 mg PO DAILY 03/16/19 [History] hydrOXYzine HCl [Hydroxyzine HCl] 50 mg PO BID PRN 03/16/19 [History] Albuterol Neb [Proventil Neb] 2.5 mg IH TID PRN inhsol 03/21/19 [Rx] Amitriptyline [Elavil] 100 mg PO HS tablet 03/21/19 [Rx] Aspirin 81 mg PO DAILY #30 tab.chew 03/21/19 [Rx] Metoprolol XL (24 HR) Succ [Toprol Xl] 25 mg PO DAILY #30 tab.er.24h 03/21/19 [Rx] Venlafaxine XR (24 HR) [Effexor Xr] 150 mg PO DAILY #30 cap.er.24h 03/21/19 [Rx] Allergies/Adverse Reactions: Allergy/AdvReac Type Severity Reaction Status Date / Time fluconazole [From Diflucan] Allergy Seizure Verified 06/17/18 11:11 fluoxetine [From Prozac] Allergy Difficulty Verified 06/17/18 11:11 Breathing Sulfa (Sulfonamide Allergy Rash Verified 06/17/18 11:11 Antibiotics) sumatriptan [From Imitrex] Allergy Rash Verified 06/17/18 11:11 Certification: Further, I certify that my clinical findings support that this patient is homebound (i.e. absences from home require considerable and taxing effort and are for medical reasons or religion services or infrequently or short duration when for other reasons) because: Homebound Reason: Leaving home requires considerable and taxing effort due to condition Attestation: My signature below is to certify that this patient is under my care and that I, or nurse practitioner, or a physician's assistant branch manager working with me, has a [id number] encounter with this patient.
== END 2019-03-21 15:40 | disposition home health service (06) | DRG 47 ==
LOC: EMEROOARM 10:51 → 3BNU 10:51
PROVIDERS: ADMIT Internal Medicine Nephrology; ATTEND Internal Medicine Nephrology

== ENCOUNTER 2019-10-15 12:49 | Inpatient (IN) ==
[2019-10-15] MEDS ORDERED: Ondansetron 4 MG/2 ML VIAL IVP ONE (13:35)
[2019-10-15] MEDS ORDERED: *HR* HYDROmorphone (PF) 1 MG/ML SYRINGE IVP PRN ×2 (13:35→17:29)
[2019-10-15] MEDS ORDERED: *HR* OxyCODONE Immed Rel 5 MG TABLET PO PRN (13:35)
[2019-10-15] MEDS ORDERED: *HR* Promethazine 25 MG/ML VIAL IVP PRN (13:35)
[2019-10-15] MEDS ORDERED: Albuterol 2.5 MG/3 ML NEBULIZER IH PRN ×2 (13:46→17:03)
[2019-10-15] MEDS ORDERED: CeFAZolin Syr 2,000MG/20 ML 2,000 MG/20 ML SYRINGE IVPB ONE (13:46)
[2019-10-15] MEDS ORDERED: Ringers Solution, Lactated 1,000 ML IVC SCH (14:00)
[2019-10-15] MEDS ORDERED: *HR* FentaNYL (PF) 100 MCG/2 ML VIAL ONE (14:34)
[2019-10-15] MEDS ORDERED: *HR* Midazolam HCl 2 MG/2 ML VIAL ONE ×2 (14:34→15:14)
[2019-10-15] MEDS ORDERED: *HR* Propofol 200 MG/20 ML VIAL IVP ONE ×3 (14:34→16:38)
[2019-10-15] MEDS ORDERED: Ondansetron 4 MG/2 ML VIAL ONE (14:37)
[2019-10-15] MEDS ORDERED: Lidocaine -MPF 2% 2 ML VIAL ONE (14:37)
[2019-10-15] MEDS ORDERED: Lidocaine HCL 4 ML Topical Solution (Laryng-O-Jet Kit Sterile Pak) TP ONE (14:39)
[2019-10-15] MEDS ORDERED: *HR* Succinylcholine 200 MG/10 ML VIAL IVP ONE (14:39)
[2019-10-15] MEDS ORDERED: ROPIVACAINE/PF/NS 0.25% 1 EACH SYRINGE INTRAART ONE (14:42)
[2019-10-15] MEDS ORDERED: Ropivacaine/PF 0.5% 30 ML VIAL ONE (14:42)
[2019-10-15] MEDS ORDERED: Ethanol\\Acetic Acid\\Na Ace\\Ben 1,000 ML IRRIG.SOLN IR ONE (15:08)
[2019-10-15] MEDS ORDERED: *HR* Labetalol 20 MG/4 ML SYRINGE IVP ONE (15:30)
[2019-10-15] MEDS ORDERED: Acetaminophen/Butalbital/CaffeineTABLET PO PRN (17:03)
[2019-10-15] MEDS ORDERED: Benzonatate 100 MG CAPSULE PO PRN (17:03)
[2019-10-15] MEDS ORDERED: Furosemide 20 MG TABLET PO PRN (17:03)
[2019-10-15] MEDS ORDERED: Clotrimazole 1% CRM 15 GM TUBE TP PRN (17:03)
[2019-10-15] MEDS ORDERED: Levalbuterol 1 PUFF INHALER IH PRN (17:03)
[2019-10-15] MEDS ORDERED: hydrOXYzine pamoate 25 MG CAPSULE PO PRN (17:03)
[2019-10-15] MEDS ORDERED: Ondansetron 4 MG/2 ML VIAL IVP PRN (17:03)
[2019-10-15] MEDS ORDERED: Loratadine 10 MG TABLET PO PRN (17:03)
[2019-10-15] MEDS ORDERED: Sennosides 8.6 MG TABLET PO PRN (17:03)
[2019-10-15] MEDS ORDERED: (Plecanatide [Trulance] 3 MG) PO PRN (17:03)
[2019-10-15] MEDS ORDERED: MOM Conc 10 ML UD.LIQ PO PRN (17:03)
[2019-10-15] MEDS ORDERED: Ipratropium/Albuterol Neb 3 ML IH ONE (17:03)
[2019-10-15] MEDS ORDERED: Temazepam 15 MG CAPSULE PO PRN (17:03)
[2019-10-15] MEDS ORDERED: Ipratropium/Albuterol Neb 3 ML ONE (17:05)
[2019-10-15] MEDS ORDERED: *HR* Promethazine 25 MG/ML VIAL ONE (17:29)
[2019-10-15] MEDS ORDERED: *HR* HYDROmorphone (PF) 1 MG/ML SYRINGE ONE (17:30)
[2019-10-15] MEDS: *HR* Promethazine 25 MG/ML VIAL IVP PRN (17:32)
[2019-10-15 17:35] LABS: Hematocrit 39.6 % (35.3-44.9); Hemoglobin 13.1 g/dL (11.5-15.4)
[2019-10-15] MEDS: Ringers Solution, Lactated 1,000 ML IVC SCH (20:18)
[2019-10-15] MEDS: *HR* OxyCODONE/APAP 5/325 TABLET PO PRN (20:26)
[2019-10-15] MEDS: Mirtazapine 15 MG TABLET PO SCH (21:07)
[2019-10-15] MEDS: Gabapentin 300 MG CAPSULE PO SCH (21:07)
[2019-10-15] MEDS: Famotidine 20 MG TABLET PO SCH (21:08)
[2019-10-15] MEDS: lamoTRIgine 100 MG TABLET PO SCH (21:08)
[2019-10-15] MEDS: Celecoxib 200 MG CAPSULE PO SCH (21:08)
[2019-10-15] MEDS: *HR* Metformin 500 MG TABLET PO SCH (21:09)
[2019-10-15] MEDS: tiZANidine 4 MG TABLET PO SCH (21:09)
[2019-10-15] MEDS: *HR* Enoxaparin 30 MG/0.3 ML SYRINGE SQ SCH (21:09)
[2019-10-16 01:44] LABS: Hematocrit 36.8 % (35.3-44.9); Hemoglobin 11.9 g/dL (11.5-15.4)
[2019-10-16 01:56] LABS: BUN/Creatinine Ratio 23 (6-26); Blood Urea Nitrogen 15 mg/dL (6-20); Calcium 8.9 mg/dL (8.6-10.3); Carbon Dioxide 20 mEq/L (23-29); Chloride 105 mEq/L (98-107); Glucose 166 mg/dL (70-105); Osmolality,Calculated 289 (280-300); Sodium 137 mEq/L (136-145); eGFR For African Americans > 60 (> 60); eGFR For Non-African Americans > 60 (> 60)
[2019-10-16] MEDS: *HR* OxyCODONE Immed Rel 5 MG TABLET PO PRN ×4 (03:40→23:13)
[2019-10-16] MEDS: *HR* Enoxaparin 30 MG/0.3 ML SYRINGE SQ SCH ×2 (05:15→17:38)
[2019-10-16] MEDS: *HR* OxyCODONE/APAP 5/325 TABLET PO PRN ×3 (05:15→21:29)
[2019-10-16] MEDS: Ringers Solution, Lactated 1,000 ML IVC SCH ×2 (05:37→21:34)
[2019-10-16] MEDS ORDERED: *HR* Enoxaparin 30 MG/0.3 ML SYRINGE SQ SCH (06:00)
[2019-10-16] MEDS: Budesonide/Formoterol 80/4.5 1 PUFF INH IH SCH (07:46)
[2019-10-16] MEDS: Tiotropium 18 MCG inhalation IH SCH (07:47)
[2019-10-16] MEDS: Diltiazem CD (24hr) 120 MG CAPSULE PO SCH (09:12)
[2019-10-16] MEDS: Gabapentin 300 MG CAPSULE PO SCH ×3 (09:12→21:28)
[2019-10-16] MEDS: Lactobacillus 1 EACH CAP.SPRINK PO SCH (09:12)
[2019-10-16] MEDS: Celecoxib 200 MG CAPSULE PO SCH ×2 (09:13→21:31)
[2019-10-16] MEDS: Venlafaxine XR (24 HR) 150 MG CAP.ER.24H PO SCH (09:13)
[2019-10-16] MEDS: Isosorbide MONOnitrate (24 HR) 60 MG TAB.ER.24H PO SCH (09:13)
[2019-10-16] MEDS: Multivit/Ca/Min/Fe/FA 1 TAB TABLET PO SCH (09:13)
[2019-10-16] MEDS: Fluticasone Propionate Nasal 50 MCG/SPRAY BOTTLE NS SCH (09:14)
[2019-10-16] MEDS: lamoTRIgine 100 MG TABLET PO SCH ×2 (09:14→21:31)
[2019-10-16] MEDS: tiZANidine 4 MG TABLET PO SCH ×3 (09:20→21:31)
[2019-10-16] MEDS: Nitroglycerin 0.4 MG TAB.SUBL SL PRN ×2 (13:56→14:02)
[2019-10-16] MEDS: Nicotine 14 MG PATCH.TD24 TD SCH (14:17)
[2019-10-16] MEDS: *HR* Metformin 500 MG TABLET PO SCH (17:37)
[2019-10-16] MEDS: Famotidine 20 MG TABLET PO SCH (21:28)
[2019-10-16] MEDS: Mirtazapine 15 MG TABLET PO SCH (21:30)
[2019-10-16] MEDS: *HR* Promethazine 25 MG/ML VIAL IVP PRN (21:33)
[2019-10-17] MEDS: *HR* OxyCODONE Immed Rel 5 MG TABLET PO PRN ×3 (05:46→14:17)
[2019-10-17] MEDS: *HR* Enoxaparin 30 MG/0.3 ML SYRINGE SQ SCH (05:47)
[2019-10-17 05:57] VITALS: BP 134/89
[2019-10-17] MEDS: Budesonide/Formoterol 80/4.5 1 PUFF INH IH SCH (08:04)
[2019-10-17] MEDS: Tiotropium 18 MCG inhalation IH SCH (08:05)
[2019-10-17] MEDS: Venlafaxine XR (24 HR) 150 MG CAP.ER.24H PO SCH (08:59)
[2019-10-17] MEDS: Isosorbide MONOnitrate (24 HR) 60 MG TAB.ER.24H PO SCH (08:59)
[2019-10-17] MEDS: Multivit/Ca/Min/Fe/FA 1 TAB TABLET PO SCH (08:59)
[2019-10-17] MEDS: Diltiazem CD (24hr) 120 MG CAPSULE PO SCH (09:00)
[2019-10-17] MEDS: Celecoxib 200 MG CAPSULE PO SCH (09:00)
[2019-10-17] MEDS: Lactobacillus 1 EACH CAP.SPRINK PO SCH (09:00)
[2019-10-17] MEDS: Fluticasone Propionate Nasal 50 MCG/SPRAY BOTTLE NS SCH (09:00)
[2019-10-17] MEDS: tiZANidine 4 MG TABLET PO SCH (09:00)
[2019-10-17] MEDS: Gabapentin 300 MG CAPSULE PO SCH (09:00)
[2019-10-17] MEDS: Nicotine 14 MG PATCH.TD24 TD SCH (09:00)
[2019-10-17] MEDS: lamoTRIgine 100 MG TABLET PO SCH (09:00)
[2019-10-17] MEDS: Ringers Solution, Lactated 1,000 ML IVC SCH (09:20)
[2019-11-05] MEDS ORDERED: GALCANEZUMAB GNLM 120 MG SQ SCH (12:00)
== END 2019-10-17 15:18 | disposition home health service (06) | DRG 322 ==
LOC: SAMDAY 12:49 → 3NENU 18:22
PROVIDERS: ADMIT Orthopaedic Surgery; ATTEND Orthopaedic Surgery

== ENCOUNTER 2019-12-25 21:04 | Observation (INO) ==
[2019-12-25] MEDS ORDERED: Isovue-370 500 ML BOTTLE IVP ONE (21:36)
[2019-12-25] MEDS ORDERED: Morphine Sulfate 2 MG/ML SYRINGE IVP ONE (21:36)
[2019-12-25 21:37] LABS: Basophils # 0.1 K/mcL (0.0-0.2); Basophils % 0.7 %; Eosinophils # 0.1 K/mcL (0.0-0.6); Eosinophils % 1.4 %; Hematocrit 41.6 % (35.3-44.9); Hemoglobin 13.6 g/dL (11.5-15.4); Immature Granulocytes % 0.3 % (0-4); Lymphocytes # 3.1 K/mcL (0.6-4.6); Lymphocytes % 42.4 %; Mean Corpuscular HGB Conc 32.7 g/dL (31.6-35.5); Mean Corpuscular Volume 91.6 fL (83.0-100.0); Mean Platelet Volume 9.8 fL (9.4-12.4); Monocytes # 0.5 K/mcL (0.0-1.3); Monocytes % 7.5 %; Neutrophils # 3.4 K/mcL (1.6-8.9); Platelet Count 317 K/mcL (140-400); Red Blood Count 4.54 M/mcL (3.82-4.97); Red Cell Distribution Width 13.4 % (11.5-14.5); Segmented Neutrophils % 47.7 %; White Blood Count 7.2 K/mcL (4.3-11.1)
[2019-12-25 21:58] LABS: BUN/Creatinine Ratio 32 (6-26); Blood Urea Nitrogen 17 mg/dL (6-20); Carbon Dioxide 20 mEq/L (23-29); Chloride 107 mEq/L (98-107); Glucose 110 mg/dL (70-105); Osmolality,Calculated 290 (280-300); Potassium 3.8 mEq/L (3.5-5.1); Sodium 139 mEq/L (136-145); eGFR For African Americans > 60 (> 60); eGFR For Non-African Americans > 60 (> 60)
[2019-12-25 21:59] LABS: Troponin I < 0.03 ng/mL (< 0.04)
[2019-12-25] MEDS ORDERED: Aspirin 325 MG TABLET PO ONE (22:19)
[2019-12-25] MEDS: Nitroglycerin 0.4 MG TAB.SUBL SL PRN ×2 (22:30→22:44)
[2019-12-25] MEDS ORDERED: Naloxone 0.4 MG/ML INJ IVP PRN (23:35)
[2019-12-26] MEDS ORDERED: *HR* LORazepam 2 MG/ML VIAL IVP PRN (01:14)
[2019-12-26] MEDS: Nitroglycerin 0.4 MG TAB.SUBL SL PRN ×3 (01:52→14:33)
[2019-12-26] MEDS ORDERED: D5% in Water 1,000 ML IVC PRN (02:11)
[2019-12-26] MEDS ORDERED: *HR* Dextrose 50 % in Water (Syg) 50 ML SYRINGE IVP PRN (02:11)
[2019-12-26] MEDS ORDERED: Dextrose Gel 15 GM/37.5 ML TUBE PO PRN ×2 (02:11)
[2019-12-26] MEDS: Pantoprazole 40 MG VIAL IVP SCH ×2 (02:38→09:32)
[2019-12-26] MEDS: Levalbuterol Neb 1.25 MG/3 ML IH SCH ×2 (03:58→10:48)
[2019-12-26] MEDS: *HR* Heparin 5,000 UNIT/ML VIAL SQ SCH ×2 (05:26→17:28)
[2019-12-26] MEDS ORDERED: *HR* HYDROcodone/Acet 5/325 mg TABLET PO PRN (05:31)
[2019-12-26] MEDS ORDERED: Acetaminophen 325 MG TABLET PO PRN (05:31)
[2019-12-26] MEDS: Insulin LISPRO 300 UNITS/3 ML VIAL SQ SCH ×3 (05:38→17:35)
[2019-12-26] MEDS ORDERED: GI Cocktail 40 ML EACH PO ONE (09:53)
[2019-12-26] MEDS: Ipratropium/Albuterol Neb 3 ML IH SCH ×3 (10:49→22:21)
[2019-12-26 10:56] LABS: Alanine Aminotransferase 38 Units/L (7-52); Albumin 4.6 g/dL (3.5-5.7); Albumin/Globulin Ratio 1.7 (1.1-2.2); Alkaline Phosphatase 113 Units/L (34-104); Aspartate Amino Transferase 20 Units/L (13-39); Bilirubin,Direct 0.1 mg/dL (0.0-0.2); Bilirubin,Indirect 0.3 mg/dL (0.0-1.0); Bilirubin,Total 0.4 mg/dL (0.3-1.0); Globulin 2.7 g/dL (2.4-3.5); Lipase 41 Units/L (11-82); Total Protein 7.3 g/dL (6.4-8.9); Troponin I < 0.03 ng/mL (< 0.04)
[2019-12-26] MEDS ORDERED: Ondansetron ODT 4 MG TAB.RAPDIS SL PRN (12:42)
[2019-12-27] MEDS: Insulin LISPRO 300 UNITS/3 ML VIAL SQ SCH ×2 (03:06→06:11)
[2019-12-27] MEDS: Ipratropium/Albuterol Neb 3 ML IH SCH ×2 (03:46→09:51)
[2019-12-27] MEDS: *HR* Heparin 5,000 UNIT/ML VIAL SQ SCH (05:12)
[2019-12-27 06:41] VITALS: BP 110/77
[2019-12-27] MEDS: Pantoprazole 40 MG VIAL IVP SCH (10:09)
== END 2019-12-27 10:10 | disposition home or self-care (01) ==
LOC: EMEROOARM 21:04 → 3BNU 21:04 → SUATTDRO 23:05 → 3BNU 23:53
PROVIDERS: ADMIT Internal Medicine; ATTEND Student in an Organized Health Care Education/Training Program

== ENCOUNTER 2021-03-23 18:37 | Observation (INO) ==
[2021-03-23] MEDS ORDERED: 0.9 % Sodium Chloride 500 ML IVC STA ×2 (18:53→19:40)
[2021-03-23] MEDS ORDERED: Ondansetron 4 MG/2 ML VIAL IVP ONE ×2 (18:53→19:40)
[2021-03-23 19:20] LABS: Basophils # 0.1 K/mcL (0.0-0.2); Basophils % 0.7 %; Eosinophils # 0.2 K/mcL (0.0-0.6); Eosinophils % 2.1 %; Hematocrit 38.8 % (35.3-44.9); Hemoglobin 13.6 g/dL (11.5-15.4); Immature Granulocytes % 0.3 % (0-4); Lymphocytes # 2.9 K/mcL (0.6-4.6); Lymphocytes % 40.1 %; Mean Corpuscular HGB Conc 35.1 g/dL (31.6-35.5); Mean Corpuscular Hemoglobin 32.5 pg (28.0-33.3); Mean Corpuscular Volume 92.8 fL (83.0-100.0); Mean Platelet Volume 10.1 fL (9.4-12.4); Monocytes # 0.5 K/mcL (0.0-1.3); Monocytes % 6.5 %; Neutrophils # 3.6 K/mcL (1.6-8.9); Platelet Count 266 K/mcL (140-400); Red Blood Count 4.18 M/mcL (3.82-4.97); Red Cell Distribution Width 12.6 % (11.5-14.5); Segmented Neutrophils % 50.3 %; White Blood Count 7.2 K/mcL (4.3-11.1)
[2021-03-23 19:38] LABS: Troponin I < 0.03 ng/mL (< 0.04)
[2021-03-23] MEDS ORDERED: Nitroglycerin 0.4 MG TAB.SUBL SL ONE (19:38)
[2021-03-23] MEDS ORDERED: Nitroglycerin 0.4 MG TAB.SUBL SL PRN (19:41)
[2021-03-23] MEDS ORDERED: Furosemide 20 MG/2 ML VIAL IVP ONE (20:19)
[2021-03-23] MEDS ORDERED: Furosemide 20 MG/2 ML VIAL IVP STA (20:22)
[2021-03-23 20:39] LABS: BUN/Creatinine Ratio 31 (6-26); Blood Urea Nitrogen 22 mg/dL (6-20); Calcium 10.3 mg/dL (8.6-10.3); Carbon Dioxide 23 mEq/L (23-29); Chloride 101 mEq/L (98-107); Glucose 110 mg/dL (70-105); Osmolality,Calculated 292 (280-300); Potassium 3.2 mEq/L (3.5-5.1); Sodium 139 mEq/L (136-145); eGFR For African Americans > 60 (> 60); eGFR For Non-African Americans > 60 (> 60)
[2021-03-23] MEDS ORDERED: Isovue-370 500 ML BOTTLE IVP ONE (21:21)
[2021-03-23] MEDS ORDERED: Ketorolac 15 MG/ML VIAL IVP ONE (22:48)
[2021-03-23] MEDS ORDERED: *HR* FentaNYL (PF) 100 MCG/2 ML VIAL IVP ONE (22:49)
[2021-03-24] MEDS ORDERED: Perflutren Lipid Microsphere 1.3 ML in 0.9 % Sodium Chloride 8.7 ML IVP PRN (00:28)
[2021-03-24] MEDS ORDERED: *HR* Metoprolol 5 MG/5 ML VIAL IVP PRN (00:33)
[2021-03-24] MEDS ORDERED: Ondansetron 4 MG/2 ML VIAL IVP PRN (00:35)
[2021-03-24] MEDS ORDERED: Melatonin 3 MG TABLET PO PRN (00:35)
[2021-03-24] MEDS ORDERED: Naloxone 0.4 MG/ML INJ IVP PRN (00:35)
[2021-03-24] MEDS ORDERED: lamoTRIgine 100 MG TABLET PO SCH (01:00)
[2021-03-24] MEDS: Morphine Sulfate 2 MG/ML SYRINGE IVP PRN ×2 (01:55→15:34)
[2021-03-24] MEDS ORDERED: Dextrose Gel 15 GM/37.5 ML TUBE PO PRN ×2 (02:04)
[2021-03-24] MEDS ORDERED: D5% in Water 1,000 ML IVC PRN (02:04)
[2021-03-24] MEDS ORDERED: *HR* Dextrose 50 % in Water (Vial) 50 ML VIAL IVP PRN (02:04)
[2021-03-24 02:14] LABS: Basophils # 0.1 K/mcL (0.0-0.2); Basophils % 0.8 %; Eosinophils # 0.1 K/mcL (0.0-0.6); Eosinophils % 1.7 %; Hematocrit 41.4 % (35.3-44.9); Hemoglobin 14.1 g/dL (11.5-15.4); Immature Granulocytes % 0.3 % (0-4); Lymphocytes # 3.2 K/mcL (0.6-4.6); Lymphocytes % 40.4 %; Mean Corpuscular HGB Conc 34.1 g/dL (31.6-35.5); Mean Corpuscular Hemoglobin 31.5 pg (28.0-33.3); Mean Corpuscular Volume 92.6 fL (83.0-100.0); Mean Platelet Volume 10.4 fL (9.4-12.4); Monocytes # 0.6 K/mcL (0.0-1.3); Monocytes % 7.1 %; Neutrophils # 3.9 K/mcL (1.6-8.9); Platelet Count 281 K/mcL (140-400); Red Blood Count 4.47 M/mcL (3.82-4.97); Red Cell Distribution Width 12.7 % (11.5-14.5); Segmented Neutrophils % 49.7 %; White Blood Count 7.9 K/mcL (4.3-11.1)
[2021-03-24 02:39] LABS: BUN/Creatinine Ratio 28 (6-26); Blood Urea Nitrogen 20 mg/dL (6-20); Calcium 9.8 mg/dL (8.6-10.3); Carbon Dioxide 23 mEq/L (23-29); Chloride 102 mEq/L (98-107); Chol/HDL Ratio 4.2 (0-4.9); Cholesterol 176 mg/dL (< 200); Glucose 120 mg/dL (70-105); HDL Cholesterol 42 mg/dL (40-59); LDL Cholesterol,Calculated 60 mg/dL (< 100); Osmolality,Calculated 292 (280-300); Potassium 3.3 mEq/L (3.5-5.1); Sodium 139 mEq/L (136-145); Triglycerides 369 mg/dL (< 150); Troponin I < 0.03 ng/mL (< 0.04); eGFR For African Americans > 60 (> 60); eGFR For Non-African Americans > 60 (> 60)
[2021-03-24 04:04] LABS: Estimated Average Glucose 160 mg/dl; Hemoglobin A1C 7.2 %
[2021-03-24] MEDS ORDERED: Regadenoson 0.4 MG/5 ML SYRINGE IVP ONE (06:32)
[2021-03-24] MEDS: *HR* Heparin 5,000 UNIT/ML VIAL SQ SCH ×2 (06:48→17:14)
[2021-03-24] MEDS: Insulin LISPRO 300 UNITS/3 ML VIAL SUBQ SCH ×4 (07:11→23:07)
[2021-03-24] MEDS: Isosorbide MONOnitrate (24 HR) 60 MG TAB.ER.24H PO SCH (10:30)
[2021-03-24] MEDS: DilTIAZem CD (24hr) 180 MG CAP.ER.24H PO SCH (10:30)
[2021-03-24] MEDS ORDERED: Nitroglycerin 0.4 MG TAB.SUBL SL PRN (13:52)
[2021-03-24] MEDS ORDERED: Scopolamine Patch 1.5 MG PATCH.TD72 TD PRN (13:52)
[2021-03-24] MEDS ORDERED: tiZANidine 4 MG TABLET PO PRN (13:52)
[2021-03-24] MEDS ORDERED: Isosorbide MONOnitrate (24 HR) 60 MG TAB.ER.24H PO SCH (14:00)
[2021-03-24] MEDS ORDERED: DILTIAZEM HCL 360 MG PO SCH (14:00)
[2021-03-24] MEDS: Celecoxib 200 MG CAPSULE PO SCH ×2 (14:23→19:35)
[2021-03-24] MEDS ORDERED: Acetaminophen/Butalbital/CaffeineTABLET PO PRN (15:12)
[2021-03-24] MEDS: Morphine Sulfate 2 MG/ML SYRINGE IVP ONE ×2 (15:38→16:22)
[2021-03-24] MEDS ORDERED: Morphine Sulfate 2 MG/ML SYRINGE IVP PRN ×3 (16:14→18:07)
[2021-03-24] MEDS ORDERED: Aspirin 325 MG TABLET PO ONE (16:43)
[2021-03-24] MEDS ORDERED: *HR* Ticagrelor 90 MG TABLET PO ONE (16:43)
[2021-03-24] MEDS ORDERED: *HR* Heparin 5,000 UNIT/ML VIAL IVP ONE (16:44)
[2021-03-24] MEDS ORDERED: *HR* Promethazine 25 MG/ML VIAL IM ONE (17:01)
[2021-03-24] MEDS ORDERED: *HR* Midazolam HCl 5 MG/5 ML VIAL IVP ONE (17:15)
[2021-03-24] MEDS ORDERED: *HR* FentaNYL (PF) 100 MCG/2 ML VIAL ONE (17:15)
[2021-03-24] MEDS ORDERED: *HR* Heparin 10,000 UNIT/10 ML VIAL ONE (17:16)
[2021-03-24] MEDS ORDERED: 0.9 % Sodium Chloride 1,000 ML ONE (17:16)
[2021-03-24] MEDS ORDERED: Nitroglycerin 1,000 MCG/5 ML VIAL IV ONE (17:16)
[2021-03-24] MEDS ORDERED: ISOVUE-370 200 ML INFUS..BTL ONE (17:16)
[2021-03-24] MEDS ORDERED: Heparin 1,000 UNITS/500 mL 500 ML ONE (17:16)
[2021-03-24] MEDS ORDERED: Ondansetron 4 MG/2 ML VIAL ONE (17:48)
[2021-03-24] MEDS ORDERED: *HR* LORazepam 2 MG/ML VIAL IVP PRN (18:09)
[2021-03-24] MEDS: 0.9 % Sodium Chloride 1,000 ML IVC SCH (18:23)
[2021-03-24] MEDS: Topiramate 100 MG TABLET PO SCH (19:35)
[2021-03-24] MEDS: Budesonide/Formoterol 160/4.5 1 PUFF INH IH SCH (19:41)
[2021-03-24] MEDS ORDERED: Melatonin 3 MG TABLET PO SCH (21:00)
[2021-03-25] MEDS: 0.9 % Sodium Chloride 1,000 ML IVC SCH (03:21)
[2021-03-25] MEDS: Insulin LISPRO 300 UNITS/3 ML VIAL SUBQ SCH ×2 (05:28→12:34)
[2021-03-25] MEDS: *HR* Heparin 5,000 UNIT/ML VIAL SQ SCH (05:30)
[2021-03-25] MEDS ORDERED: *HR* OxyCODONE/APAP 5/325 TABLET PO PRN (07:57)
[2021-03-25] MEDS: Celecoxib 200 MG CAPSULE PO SCH (08:45)
[2021-03-25] MEDS: Topiramate 100 MG TABLET PO SCH (08:45)
[2021-03-25] MEDS: DilTIAZem CD (24hr) 180 MG CAP.ER.24H PO SCH (08:46)
[2021-03-25] MEDS: Isosorbide MONOnitrate (24 HR) 60 MG TAB.ER.24H PO SCH (08:46)
[2021-03-25] MEDS ORDERED: Venlafaxine XR (24 HR) 150 MG CAP.ER.24H PO SCH (09:00)
[2021-03-25] MEDS ORDERED: hydroCHLOROthiazide 25 MG TABLET PO SCH (09:00)
[2021-03-25] MEDS ORDERED: NON-FORMULARY MEDICATION 1 EACH EACH (Memantine Hcl 10 MG Tablet) PO SCH (09:00)
[2021-03-25] MEDS ORDERED: Mirtazapine 15 MG TABLET PO SCH (09:00)
[2021-03-25] MEDS ORDERED: Cholecalciferol (D-3) 1,000 UNIT (25MCG) TABLET PO SCH (09:00)
[2021-03-25] MEDS: Tiotropium 10 INH DOSE IH SCH ×2 (10:49→10:50)
[2021-03-25] MEDS: Budesonide/Formoterol 160/4.5 1 PUFF INH IH SCH (10:49)
[2021-03-25 11:26] VITALS: BP 120/76
== END 2021-03-25 14:30 | disposition home or self-care (01) ==
LOC: EMEROOARM 18:37 → 3BNU 18:37 → SUATTDRO 23:09 → 3BNU 03-24
PROVIDERS: ADMIT Internal Medicine; ATTEND Internal Medicine